=== PATIENT | female | born 1990 | race Caucasian/White ===

== ENCOUNTER 2020-11-01 21:02 | Emergency (ER) | payer OTHER, SELFPAY ==
--- NOTE | ~2020-11-01 | CT_ITS ---
EXAMINATION: CT ABDOMEN AND PELVIS WITH CONTRAST CLINICAL INFORMATION: Abdominal pain. Foreign object in rectum. COMPARISON: None TECHNIQUE: Multidetector volumetric images were obtained from the superior aspect of the liver through the pubic symphysis following administration 85 mL of Omnipaque 350 intravenous contrast. Sagittal and coronal reformatted images were obtained on the technologist's workstation. Oral contrast: No This CT examination was performed using dose optimization techniques as appropriate, variously including the following: *Automated exposure control *Adjustment of mA and/or kV according to patient size (this includes techniques or standardized protocols for targeted exams where dose is matched to indication/reason for exam; i.e. extremities or head) *Use of iterative reconstruction technique DLP: 387 mGy-cm FINDINGS: LUNG BASES: The visualized lung bases are unremarkable. LIVER, GALLBLADDER, AND BILIARY TREE: The liver is normal in size, shape, and attenuation. No focal hepatic lesion or biliary ductal dilatation is present. The gallbladder is unremarkable with no evidence of radiopaque gallstones, gallbladder wall thickening, or obvious pericholecystic inflammatory changes. PANCREAS: Unremarkable. SPLEEN: Unremarkable. ADRENAL GLANDS: Unremarkable. KIDNEYS AND URETERS: The kidneys are normal in size, shape, and attenuation. No hydronephrosis, hydroureter, or calculi seen. No perinephric stranding. BLADDER: Unremarkable. GASTROINTESTINAL TRACT: The small and large bowel are unremarkable. The appendix is unremarkable. No radiopaque foreign body in rectum. ABDOMINAL WALL: No significant hernia is appreciated. LYMPH NODES: Normal. VASCULAR: Unremarkable. PELVIC VISCERA: Uterus is retroverted. Bilateral adnexal follicles/cysts. No follow-up imaging is needed. OSSEOUS STRUCTURES: Unremarkable. CT/CT abdomen pelvis w con IMPRESSION: No acute abnormality CT scan abdomen pelvis.
[2020-11-01 21:30] VITALS: BP 159/96; PULSE 83; RESP 18; TEMP 36.6; O2SAT 98; BMI 18.3
--- NOTE | 2020-11-01 22:07 | ED.ABDPAIN ---
HPI - Abdominal Pain General Chief Complaint: Abdominal Pain Stated Complaint: foreign object in body Time Seen by Provider: 11/01/20 22:04 Source: patient Mode of arrival: ambulatory History of Present Illness HPI narrative: 30-year-old female reports that she placed crack cocaine in a bag inside of her rectum approximately 8 days ago and has had difficulty with having a bowel movement since then with progressively worsening abdominal discomfort but denies any vomiting but describes some nausea with chills and states that she is bleeding ?from below?. Patient states that she was discharged from detox 4 days ago and denies having any alcoholic drinks since that time. Related Data Previous Rx's Medication Instructions Recorded phenazopyridine [Pyridium] 100 mg PO TID PRN #6 tab 11/02/20 sulfamethoxazole-trimethoprim 1 tab PO Q12H 3 Days #6 tab 11/02/20 [Bactrim DS] Allergies Allergy/AdvReac Type Severity Reaction Status Date / Time povidone-iodine Allergy Unknown ITCHING Unverified 01/04/20 16:51 [From BETADINE] soap [From BETADINE] Allergy Unknown ITCHING Unverified 01/04/20 16:51 Review of Systems Review of Systems Pertinent positives and negatives as stated in HPI 10 point review of systems is otherwise negative. Physical Exam Vital Signs: Vital Signs: Last Vital Signs Temp 97.9 F 11/01/20 21:30 Pulse 84 11/02/20 00:14 Resp 17 11/02/20 00:14 BP 144/92 H 11/02/20 00:14 Pulse Ox 100 11/02/20 00:14 Body Mass Index 18.3 VITAL SIGNS: Reviewed. GENERAL: Well developed, well nourished, in no acute distress. HEAD: Normocephalic/atraumatic EYES: PERRLA, EOMI OROPHARYNX: no oral lesions noted, posterior pharynx clear NECK: Supple, no adenopathy LUNGS: Normal breath sounds. No adventitious sounds or accessory muscle use. SpO2<98> CARDIOVASCULAR: Regular rate and rhythm without noted murmurs ABDOMEN: Soft, diffuse abdominal tenderness, distended with bowel sounds. Voluntary guarding TREE: [Electronic Security Specialist-Wanda] No hemorrhoids, fissures, tags noted, rectal vault empty and no blood or stool noted on finger and no palpation of foreign object, good rectal tone LEFT UPPER EXTREMITY: Patient has sling and placed stating that she was evaluated at [facility] for dislocated elbow and neurovascularly intact SKIN: Inspection of the skin reveals no rashes NEUROLOGIC: Alert and oriented x 4. Strength and sensation to light touch were grossly intact x 4. Course Course Course Narrative: 30-year-old female with history and clinical presentation consistent with possible foreign body in rectum with subsequent obstruction versus less likely perforation. Review of all investigations consistent with UTI and cocaine use. No imaging findings to demonstrate intra-abdominal pathology. All results and findings were discussed with the patient at bedside, she received initial antibiotics/peridium as well as combination analgesics and was then discharged in stable condition. MDM - Abdominal Pain Lab Data Result diagrams: 11/01/20 22:24 11/01/20 22:24 Labs: Lab Results 11/01/20 11/01/20 11/01/20 Range/Units 22:24 22:24 22:24 WBC 11.1 H (4.8-10.8) X10*3/uL RBC 4.37 (4.20-5.50) X10*6/uL Hgb 9.8 L (12.0-16.0) g/dl Hct 31.5 L (37-47) % MCV 72.1 L (80-98) fL MCH 22.4 L (27.0-33.0) pg MCHC 31.1 (31.0-35.0) g/dl RDW 20.0 H (11.0-16.0) % Plt Count 395 (160-400) X10*3/uL MPV 9.1 L (9.4-12.3) fL Immature Gran % (Auto) 0.3 (0.0-0.4) % Neut % (Auto) 59.8 (45-73) % Lymph % (Auto) 28.4 (20-40) % [place] % (Auto) 9.7 (2-11) % Eos % (Auto) 1.4 (0-4) % Baso % (Auto) 0.4 (0-2) % Lymph # (Auto) 3.2 (1.2-4.9) X10*3/uL [place] # (Auto) 1.1 (0.1-1.2) X10*3/uL Eos # (Auto) 0.2 (0.0-0.4) X10*3/uL Baso # (Auto) 0.0 (0.0-0.2) X10*3/uL Abs Immat Gran (auto) 0.03 (0.00-0.03) X10*3/uL Absolute Neuts (auto) 6.6 (2.0-8.3) X10*3/uL Absolute Nucleated RBC 0.000 (0.0-0.012) X10*3/uL Nucleated RBC % (auto) 0.0 (0.0-0.2) /100WBC Sodium 143 (135-145) mmol/L Potassium 4.0 (3.3-5.1) mmol/L Chloride 111 H (96-108) mmol/L Carbon Dioxide 26 (22-29) mmol/L Anion Gap 10 L (12-20) BUN 14 (9-16) mg/dL Creatinine 0.82 (0.5-1.4) mg/dL Estim Creat Clear Calc 77.5 Estimated GFR > 60 Random Glucose 81 (60-115) mg/dL Calcium 9.1 (8.4-10.2) mg/dL Total Bilirubin 0.6 (0.0-1.0) mg/dL AST 108 H (5-31) U/L ALT 159 H (0-31) U/L Alkaline Phosphatase 167 H (39-117) U/L Total Protein 6.9 (6.5-8.0) g/dL Albumin 3.6 (3.5-5.0) g/dL Urine Color Urine Appearance Urine pH (5.0-8.0) Ur Specific [place] (1.005-1.025) Urine Protein (NEG-TRACE) MG/DL Urine Glucose (UA) (NEG) MG/DL Urine Ketones (NEG) MG/DL Urine Blood (NEG) Urine Nitrite (NEG) Ur Leukocyte Esterase (NEG) Urine RBC (0) /HPF Urine WBC (0-4) /HPF Ur Squamous Epith Cells /LPF Urine Bacteria /LPF Urine Mucus /LPF Urine Test (NEGATIVE) Urine Opiates Screen (Not Detect) Ur Barbiturates Screen (Not Detect) Ur Phencyclidine Scrn (Not Detect) Ur Amphetamines Screen (Not Detect) U Benzodiazepines Scrn (Not Detect) Urine Cocaine Screen (Not Detect) U Marijuana (THC) Screen (Not Detect) Ethyl Alcohol < 10 mg/dL 11/01/20 11/01/20 11/01/20 Range/Units 23:38 23:38 23:38 WBC (4.8-10.8) X10*3/uL RBC (4.20-5.50) X10*6/uL Hgb (12.0-16.0) g/dl Hct (37-47) % MCV (80-98) fL MCH (27.0-33.0) pg MCHC (31.0-35.0) g/dl RDW (11.0-16.0) % Plt Count (160-400) X10*3/uL MPV (9.4-12.3) fL Immature Gran % (Auto) (0.0-0.4) % Neut % (Auto) (45-73) % Lymph % (Auto) (20-40) % [place] % (Auto) (2-11) % Eos % (Auto) (0-4) % Baso % (Auto) (0-2) % Lymph # (Auto) (1.2-4.9) X10*3/uL [place] # (Auto) (0.1-1.2) X10*3/uL Eos # (Auto) (0.0-0.4) X10*3/uL Baso # (Auto) (0.0-0.2) X10*3/uL Abs Immat Gran (auto) (0.00-0.03) X10*3/uL Absolute Neuts (auto) (2.0-8.3) X10*3/uL Absolute Nucleated RBC (0.0-0.012) X10*3/uL Nucleated RBC % (auto) (0.0-0.2) /100WBC Sodium (135-145) mmol/L Potassium (3.3-5.1) mmol/L Chloride (96-108) mmol/L Carbon Dioxide (22-29) mmol/L Anion Gap (12-20) BUN (9-16) mg/dL Creatinine (0.5-1.4) mg/dL Estim Creat Clear Calc Estimated GFR Random Glucose (60-115) mg/dL Calcium (8.4-10.2) mg/dL Total Bilirubin (0.0-1.0) mg/dL AST (5-31) U/L ALT (0-31) U/L Alkaline Phosphatase (39-117) U/L Total Protein (6.5-8.0) g/dL Albumin (3.5-5.0) g/dL Urine Color YELLOW Urine Appearance HAZY Urine pH 7.0 (5.0-8.0) Ur Specific [place] 1.015 (1.005-1.025) Urine Protein NEG (NEG-TRACE) MG/DL Urine Glucose (UA) NEG (NEG) MG/DL Urine Ketones NEG (NEG) MG/DL Urine Blood NEG (NEG) Urine Nitrite NEG (NEG) Ur Leukocyte Esterase 1+ H (NEG) Urine RBC 1-4 (0) /HPF Urine WBC 10-14 H (0-4) /HPF Ur Squamous Epith Cells 2+ /LPF Urine Bacteria 1+ /LPF Urine Mucus TRACE /LPF Urine Test NEGATIVE (NEGATIVE) Urine Opiates Screen Not Detected (Not Detect) Ur Barbiturates Screen Not Detected (Not Detect) Ur Phencyclidine Scrn Not Detected (Not Detect) Ur Amphetamines Screen Not Detected (Not Detect) U Benzodiazepines Scrn POSITIVE H (Not Detect) Urine Cocaine Screen POSITIVE H (Not Detect) U Marijuana (THC) Screen Not Detected (Not Detect) Ethyl Alcohol mg/dL Discharge Plan Discharge Clinical Impression: UTI (urinary tract infection), Cocaine abuse Patient Disposition: Home, Self-Care Instructions: Urinary Tract Infection in Women (ED), Cocaine Abuse (ED) Additional Instructions: Follow-up with your primary care provider in next 2-3 days. Continue to wear the sling on your left arm as directed. Return to the ER for acute worsening of symptoms. Prescriptions: New sulfamethoxazole-trimethoprim [Bactrim DS] 800-160 mg tablet 1 tab PO Q12H 3 Days Qty: 6 RF: 0 phenazopyridine [Pyridium] 100 mg tablet 100 mg PO TID PRN (Reason: pain) Qty: 6 RF: 0 Referrals: Physician,None [Primary Care Provider] - 2 days PMF[facility] Past Medical History Source: nursing notes reviewed Medical History Anxiety Hypertension Social History Social History Alcohol intake: unknown Patient Tobacco Use Status: Tobacco use Unknown Use of substances other than those prescribed or required for medical reasons: Unknown Advance Directives: No Advance Directives Information Provided: Yes Patient : No
[2020-11-01 22:27] LABS: MANUAL DIFF FLAG NO
[2020-11-01 22:28] LABS: Basophils Percent Auto 0.4 % (0-2); Eosinophils Absolute Auto 0.2 X10*3/uL (0.0-0.4); Eosinophils Percent Auto 1.4 % (0-4); Hematocrit 31.5 % (37-47); Hemoglobin 9.8 g/dl (12.0-16.0); Imm Gran Abs Auto 0.03 X10*3/uL (0.00-0.03); Imm Gran Pct Auto 0.3 % (0.0-0.4); Lymphocytes Absolute Auto 3.2 X10*3/uL (1.2-4.9); Lymphocytes Percent Auto 28.4 % (20-40); Mean Corpuscular HGB Conc 31.1 g/dl (31.0-35.0); Mean Corpuscular Hemoglobin 22.4 pg (27.0-33.0); Mean Corpuscular Volume 72.1 fL (80-98); Mean Platelet Volume 9.1 fL (9.4-12.3); Monocytes Absolute Auto 1.1 X10*3/uL (0.1-1.2); Monocytes Percent Auto 9.7 % (2-11); Neutrophils Absolute Auto 6.6 X10*3/uL (2.0-8.3); Neutrophils Percent Auto 59.8 % (45-73); Platelet Count 395 X10*3/uL (160-400); Red Blood Count 4.37 X10*6/uL (4.20-5.50); White Blood Count 11.1 X10*3/uL (4.8-10.8)
[2020-11-01 22:44] VITALS: BP 182/100; PULSE 107; RESP 22; O2SAT 100
[2020-11-01 22:48] LABS: Ethanol < 10 mg/dL
[2020-11-01] MEDS: LORazepam 2 MG/ML VIAL 1 MG IVPUSH (22:50)
[2020-11-01 22:59] LABS: Alanine Aminotransferase 159 U/L (0-31); Albumin Level 3.6 g/dL (3.5-5.0); Alkaline Phosphatase 167 U/L (39-117); Anion Gap 10 (12-20); Aspartate Amino Transferase 108 U/L (5-31); Bilirubin Total 0.6 mg/dL (0.0-1.0); Blood Urea Nitrogen 14 mg/dL (9-16); Calcium 9.1 mg/dL (8.4-10.2); Carbon Dioxide 26 mmol/L (22-29); Chloride 111 mmol/L (96-108); Creatinine Clr Calc Pharmacy 77.5; Estimated Glomerular Filt Rate > 60; Glucose Random 81 mg/dL (60-115); Sodium 143 mmol/L (135-145); Total Protein 6.9 g/dL (6.5-8.0)
[2020-11-01] MEDS: iohexoL 350 MG/ML 100 ML INFUS..BTL 85 ML IV (23:05)
[2020-11-01 23:28] VITALS: BP 164/112; PULSE 79; RESP 16; O2SAT 100
[2020-11-01 23:46] LABS: Glucose Urine UA NEG (NEG); Leukocyte Esterase Urine 1+ (NEG); Nitrite Urine NEG (NEG); Specific Gravity - Urine 1.015 (1.005-1.025); UACC Culture Trigger YES; Urine Blood NEG (NEG); Urine Ketones NEG (NEG); Urine Protein NEG (NEG-TRACE)
[2020-11-01 23:47] LABS: Appearance Urine HAZY; Color Urine YELLOW; UPreg QC Valid YES; Urine Pregnancy NEGATIVE (NEGATIVE)
--- NOTE | 2020-11-01 23:50 | PC.NURSE ---
Dr Herron made aware of pt's BP
[2020-11-01 23:54] LABS: Bacteria Urine 1+ /LPF; Mucus Urine TRACE /LPF; Squamous Epithelial Cell Urine 2+ /LPF
[2020-11-02 00:13] LABS: Amphetamine Screen Urine Not Detected (Not Detect); Barbiturates, Urine Not Detected (Not Detect); Benzodiazepines Screen Urine POSITIVE (Not Detect); Cannabinoid Screen Urine Not Detected (Not Detect); Cocaine Screen Urine POSITIVE (Not Detect); Opiate Screen Urine Not Detected (Not Detect); Phencyclidine Screen Urine Not Detected (Not Detect)
[2020-11-02 00:14] VITALS: BP 144/92; PULSE 84; RESP 17; O2SAT 100
[2020-11-02] MEDS: Phenazopyridine HCL 200 MG TABLET PO (01:00)
[2020-11-02] MEDS: Acetaminophen 325 MG TABLET 975 MG PO (01:00)
[2020-11-02] MEDS: Ketorolac Tromethamine 15 MG/ML VIAL IVPUSH (01:00)
== END 2020-11-02 01:21 | disposition home or self-care (01) ==
PROVIDERS: Emergency Provider Student in an Organized Health Care Education/Training Program
DX: Z03.823 Encounter for observation for suspected inserted (injected) foreign body ruled out (principal); N39.0 Urinary tract infection, site not specified; F14.10 Cocaine abuse, uncomplicated
CPT/HCPCS: 36415; 74177; 80053; 80307; 81001; 81003; 81025; 82077; 85025; 87086; 96374; 96375; 99284; 99285; J1885; J2060; Q9967

== ENCOUNTER 2021-03-30 13:23 | Emergency (ER) | payer OTHER, SELFPAY ==
--- NOTE | 2021-03-30 13:53 | ED.GENADULT ---
HPI - General Adult General Chief complaint: General Medical Stated complaint: feet swollen numb fever Time Seen by Provider: 03/30/21 13:52 Source: patient Mode of arrival: ambulatory Limitations: no limitations History of Present Illness HPI narrative: 30-year-old female past medical history significant for cocaine abuse, presents to the emergency department with complaints of bilateral ankle swelling and pain, bilateral knee pain, fevers, chills, and blurred vision x2 weeks progressively worsening. Patient tells me that it started off with pain and swelling to bilateral ankles, and within the past week it has moved up to her knees and hips. She tells me she has been having fevers that are subjective, she has never taken her temperature at home. Patient denies chest pain, shortness of breath, vomiting, nausea, abdominal pain, headache, dizziness, weakness. Onset (ago): week(s) (2) Location: left, right and lower extremity Radiation: non-radiation Severity: severe Severity scale (1-10): 10 Quality: aching and constant Pain Consistency: constant Relieving factors: none Exacerbating factors: none Associated symptoms: fever/chills and other (blurred vision) Treatments prior to arrival: none Related Data Previous Rx's Medication Instructions Recorded phenazopyridine 100 mg tablet 100 mg PO TID PRN #6 tab 11/02/20 (Pyridium) sulfamethoxazole 800 1 tab PO Q12H 3 Days #6 tab 11/02/20 mg-trimethoprim 160 mg tablet (Bactrim DS) Allergies Allergy/AdvReac Type Severity Reaction Status Date / Time povidone-iodine Allergy Unknown ITCHING Unverified 01/04/20 16:51 [From BETADINE] soap [From BETADINE] Allergy Unknown ITCHING Unverified 01/04/20 16:51 Review of Systems Review of Systems: Constitutional : No Weight loss, + Fever, + Chills, No Fatigue, No Malaise ENT/Mouth : No sore throat, No Rhinorrhea Eyes: No Eye Pain, No Swelling, No Redness Cardiovascular : No Chest Pain, No SOB, No Dyspnea on Exertion, No Orthopnea, No Edema, No Palpitations Respiratory : No Cough, No Sputum, No Wheezing Gastrointestinal : No Nausea, No Vomiting, No Diarrhea, No Constipation, No abdominal Pain, No Hematochezia, No Melena Genitourinary : No Dysuria, No Urinary Frequency, No Hematuria, Musculoskeletal : + joint pain, No Myalgias, + Joint Swelling Skin : No Skin Lesions, No rash Neuro : No Weakness, No Numbness, No Dizziness, No Headache All other systems reviewed and are negative Yes all other systems are reviewed and are negative [facility] Past Medical History Attestation statement: The following information was validated with the patient. Source: old records reviewed and nursing notes reviewed Medical History Anxiety Hypertension Social History Social History Alcohol intake: unknown Patient Tobacco Use Status: Tobacco use Unknown Advance Directives: No Advance Directives Information Provided: No Patient : No Physical Exam Vital Signs: Vital Signs: Last Vital Signs Temp 98.5 F 03/30/21 13:54 Pulse 92 03/30/21 13:54 Resp 18 03/30/21 13:54 BP 178/111 H 03/30/21 13:54 Pulse Ox 99 03/30/21 13:54 BMI result Body Mass Index 21.6 VSS Appearance: Alert.? Oriented X3.? No acute distress.? Head: Normocephalic, atraumatic, no step-offs or deformities Eyes: Pupils equal, round and reactive to light.? ENT: Pharynx normal.? Neck: Normal inspection.? Neck supple.? CVS: Normal heart rate and rhythm.? Pulses normal.? Respiratory: No respiratory distress.? Breath sounds normal.? Abdomen: Soft and nontender.? Skin: Skin warm and dry.? Normal skin color.? Normal skin turgor.? Extremities: No lower extremity edema.? No calf ttp. 5/5 strength to bilateral upper and lower extremities + pain with ROM of ankles, knee and hip + swelling to left knee, right knee normal. + cracked heels, appears to be chronic in nature. Back: No midline tenderness, no C-spine tenderness, full range of motion, no CVA tenderness bilaterally Neuro: Oriented X 3.? No motor deficit.? No sensory deficit. Course Reevaluation(s) Reevaluation #1: Was reported to me that patient did not want to wait, patient eloped. Time: 14:38 Medical Decision Making [facility] Narrative Medical decision making narrative: [id number] 30-year-old female past medical history significant for cocaine abuse presents to the emergency department with complaints of migratory arthritis, blurred vision, subjective fevers and chills x2 weeks progressively worsening. Patient states that the joint pain started at the ankles and has moved up to her hips a course of 2 weeks. She tells me that she is sexually active, does not use protection. She tells me she has no concerns for STDs. Denies sick contacts. Denies chest pain, shortness of breath, abdominal pain, no vomiting, nausea, weakness. Upon physical examination patient reports pain with movement of bilateral ankles, knees and hips. There is slight swelling noted to the left knee however no overlying skin changes, no palpable effusions, step-offs or deformities. Lungs are clear. S1-S2 appreciated free of murmurs. Abdomen is soft nontender nondistended. Patient refusing a pelvic exam at this time. Vital signs are stable, however patient appears to be hypertensive, likely secondary to anxiety. Plan at this time is to obtain Lyme, chlamydia, gonorrhea, tick-borne panel, UA, point of care, x-ray of the left knee. 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 Tick borne illnesses will also be ruled out. I will also rule out effusion to the left knee since there is slight edema to the left knee. I will prophylactically treat patient for gonorrhea and chlamydia. Medical Records Medical records reviewed: Yes I reviewed the patient's medical records. Lab Data Lab results reviewed: Yes I reviewed the patient's lab results. Critical Care Time Critical Care Time Critical Care Time: No Discharge Plan Discharge Clinical Impression: Knee pain, Joint pain Patient Disposition: Elopement Prescriptions: No Action sulfamethoxazole-trimethoprim [Bactrim DS] 800-160 mg tablet 1 tab PO Q12H 3 Days Qty: 6 RF: 0 phenazopyridine [Pyridium] 100 mg tablet 100 mg PO TID PRN (Reason: pain) Qty: 6 RF: 0
[2021-03-30 13:54] VITALS: BP 178/111; PULSE 92; RESP 18; TEMP 36.9; O2SAT 99; BMI 21.6
[2021-03-30 14:46] LABS: Influenza A PCR NEGATIVE (Negative); Influenza B PCR NEGATIVE (Negative); Resp Syncy Virus RNA Qual PCR NEGATIVE (Negative); SARS COV2 PCR INHOUSE NEGATIVE (Negative)
== END 2021-03-30 14:48 | disposition left against medical advice (07) ==
PROVIDERS: Physician Assistant; Emergency Provider Emergency Medicine; PCP Internal Medicine
DX: M25.562 Pain in left knee (principal); M25.561 Pain in right knee; M25.462 Effusion, left knee; M25.572 Pain in left ankle and joints of left foot; M25.571 Pain in right ankle and joints of right foot; F14.10 Cocaine abuse, uncomplicated; I10 Essential (primary) hypertension; F41.9 Anxiety disorder, unspecified
CPT/HCPCS: 0241U; 36415; 96372; 99283; 99284

== ENCOUNTER 2021-06-16 04:12 | Emergency (ER) | payer OTHER, SELFPAY ==
[2021-06-16] VITALS (11 sets, daily range): BP systolic 116–160; BP diastolic 60–103; PULSE 96–127; RESP 16–24; TEMP 36.7–37; O2SAT 97–99; BMI 20.6
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
[2021-06-16] MEDS: Haloperidol Lactate 5 MG/ML VIAL IM (04:29)
[2021-06-16] MEDS: diphenhydrAMINE HCL 50 MG/ML VIAL IM (04:29)
[2021-06-16] MEDS: LORazepam 2 MG/ML VIAL IM (04:29)
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
--- NOTE | 2021-06-16 04:49 | ECG_ITS ---
Test Reason : overdose Blood Pressure : / mmHG Vent. Rate : 100 BPM Atrial Rate : 100 BPM P-R Int : 130 ms QRS Dur : 086 ms QT Int : 362 ms P-R-T Axes : 069 073 055 degrees QTc Int : 466 ms Normal sinus rhythm Normal ECG No previous ECGs available Referred By: Alisha Springer Electronically Signed By:Chandrakant Fink
[2021-06-16 05:10] LABS: Basophils Absolute Auto 0.1 X10*3/uL (0.0-0.2); Basophils Percent Auto 0.4 % (0-2); Eosinophils Percent Auto 0.1 % (0-4); Hematocrit 37.9 % (37.0-47.0); Hemoglobin 12.4 g/dl (12.0-16.0); Imm Gran Abs Auto 0.06 X10*3/uL (0.00-0.03); Imm Gran Pct Auto 0.4 % (0.0-0.4); Lymphocytes Absolute Auto 2.5 X10*3/uL (1.2-4.9); Lymphocytes Percent Auto 15.6 % (20-40); MANUAL DIFF FLAG NO; Mean Corpuscular HGB Conc 32.7 g/dl (31.0-35.0); Mean Corpuscular Hemoglobin 26.3 pg (27.0-33.0); Mean Corpuscular Volume 80.3 fL (80.0-98.0); Mean Platelet Volume 9.2 fL (9.4-12.3); Neutrophils Absolute Auto 12.3 x10*3/uL (2.0-8.3); Neutrophils Percent Auto 77.5 % (45-73); Platelet Count 322 X10*3/uL (160-400); Red Blood Count 4.72 X10*6/uL (4.20-5.50); Red Cell Distribution Width 17.1 % (11.0-16.0); White Blood Count 15.8 X10*3/uL (4.8-10.8)
[2021-06-16 05:21] LABS: INTERNATIONAL NORM RATIO 1.1 (0.9-1.1); Prothrombin Time 12.5 SEC (9.9-13.0)
[2021-06-16 05:24] LABS: Ethanol 79 mg/dL; Partial Thromboplastin Time 30.1 SEC (24.1-38.0)
[2021-06-16 05:30] LABS: Acetaminophen LAB < 1 mcg/mL (<30); Alanine Aminotransferase 40 U/L (0-31); Albumin Level 4.3 g/dL (3.5-5.0); Alkaline Phosphatase 112 U/L (39-117); Anion Gap 14 (12-20); Aspartate Amino Transferase 51 U/L (5-31); Bilirubin Direct 0.4 mg/dL (0.0-0.5); Bilirubin Total 0.7 mg/dL (0.0-1.0); Blood Urea Nitrogen 13 mg/dL (9-16); Calcium 9.6 mg/dL (8.4-10.2); Carbon Dioxide 22 mmol/L (22-29); Chloride 105 mmol/L (96-108); Creatinine Clr Calc Pharmacy 106.9; Estimated Glomerular Filt Rate > 60; Glucose Random 82 mg/dL (60-115); Potassium 3.8 mmol/L (3.3-5.1); Sodium 137 mmol/L (135-145); Total Protein 7.6 g/dL (6.5-8.0)
[2021-06-16 05:31] LABS: Salicylate < 5.0 mg/dL (15-30)
--- NOTE | 2021-06-16 08:08 | PC.NURSE ---
princess stoddard sent
[2021-06-16 18:13] LABS: Appearance Urine CLEAR; Color Urine DK YELLOW; Glucose Urine UA NEG (NEG); Leukocyte Esterase Urine TRACE (NEG); Nitrite Urine NEG (NEG); Specific Gravity - Urine >= 1.030 (1.005-1.025); UACC Culture Trigger YES; Urine Blood NEG (NEG); Urine Ketones 5 MG/DL (NEG); Urine Protein 1+ MG/DL (NEG-TRACE)
[2021-06-16 18:15] LABS: Amphetamine Screen Urine Not Detected (Not Detect); Barbiturates, Urine Not Detected (Not Detect); Benzodiazepines Screen Urine Not Detected (Not Detect); Cannabinoid Screen Urine POSITIVE (Not Detect); Cocaine Screen Urine POSITIVE (Not Detect); Fentanyl, urine POSITIVE (Not Detect); Opiate Screen Urine Not Detected (Not Detect); Phencyclidine Screen Urine Not Detected (Not Detect)
[2021-06-16 18:34] LABS: Bacteria Urine TRACE /LPF; Mucus Urine 4+ /LPF; Squamous Epithelial Cell Urine 3+ /LPF
[2021-06-16 18:57] LABS: COVID-19 Test Negative (Negative); IDNOW Serial# 55D5AD1C
[2021-06-16] MEDS: LORazepam 1 MG TABLET 2 MG PO (20:37)
--- NOTE | 2021-06-16 21:14 | MHC.RECOVSUP ---
Addendum entered by Edmond Amanda 06/17/21 14:00: There was no bed availability, patient was given community resources.Patient was referred to the [facility]. Original Note: ? Reason for consult:Recovery Support o Current location:[facility] o Identified substance use concern: ETOH, Crack cocaine - Seeking ATS (detox) - Support ? Intervention: o ATS bed search started/completed/in process o Community resources provided o Harm reduction discussion ? Plan: o Follow up tomorrow o Patient awaiting crisis evaluation o Patient to follow up with [facility] after discharge ? Additional information:Patient seeking detox (EATS) bed, Care team doing an evaluation, patient to stay until we do a bed search in the morning.
[2021-06-17 06:14] VITALS: BP 141/84; PULSE 77; RESP 16; TEMP 36.9; O2SAT 100
--- NOTE | 2021-06-17 06:39 | PC.NURSE ---
Patient slept through the night, no distress observed/reported, asymptomatic of withdrawal, patient per care team and [employer] EATS bed search, VSS, will continue to monitor.
--- NOTE | 2021-06-17 07:11 | PC.NURSE ---
patient appears to remain asleep at present respirations are even and unlabored patient appears in no distress
--- NOTE | 2021-06-17 14:05 | MHC.RECOVRN ---
Loan Operations Manager has conducted bedsearch and sent updated information to [facility] due to their bed availability. Awaiting call back.
[2021-06-17] MEDS: LORazepam 1 MG TABLET 2 MG PO (16:18)
[2021-06-17] MEDS: Acetaminophen 325 MG TABLET 650 MG PO (16:58)
== END 2021-06-17 21:36 | disposition home or self-care (01) ==
PROVIDERS: Emergency Provider Emergency Medicine; PCP Internal Medicine
DX: F10.120 Alcohol abuse with intoxication, uncomplicated (principal); Y90.3 Blood alcohol level of 60-79 mg/100 ml; S51.812A Laceration without foreign body of left forearm, initial encounter; X78.0XXA Intentional self-harm by sharp glass, initial encounter; F14.10 Cocaine abuse, uncomplicated; F12.90 Cannabis use, unspecified, uncomplicated; F41.9 Anxiety disorder, unspecified; R45.6 Violent behavior; R45.1 Restlessness and agitation; R45.850 Homicidal ideations; Y93.89 Activity, other specified; Y92.019 Unspecified place in single-family (private) house as the place of occurrence of the external cause; Y99.9 Unspecified external cause status; Z20.822 Contact with and (suspected) exposure to COVID-19; Z72.89 Other problems related to lifestyle; Z63.0 Problems in relationship with spouse or partner
CPT/HCPCS: 12001; 36415; 70450; 80048; 80076; 80143; 80179; 80307; 81001; 82077; 83605; 83735; 85025; 85610; 85730; 87086; 87147; 87635; 93005; 96372; 99285; J1200; J2060

== ENCOUNTER 2021-06-27 22:26 | Inpatient (IN) | payer OTHER, SELFPAY ==
--- NOTE | ~2021-06-27 | CT_ITS ---
EXAMINATION: CT ABDOMEN AND PELVIS WITH CONTRAST CLINICAL INFORMATION: Right lower quadrant pain. 8 out of 10. Rule out appendicitis. COMPARISON: None TECHNIQUE: Multidetector volumetric images were obtained from the superior aspect of the liver through the pubic symphysis following administration 85 mL of Omnipaque 350 intravenous contrast. Sagittal and coronal reformatted images were obtained on the technologist's workstation. Oral contrast: No This CT examination was performed using dose optimization techniques as appropriate, variously including the following: *Automated exposure control *Adjustment of mA and/or kV according to patient size (this includes techniques or standardized protocols for targeted exams where dose is matched to indication/reason for exam; i.e. extremities or head) *Use of iterative reconstruction technique FINDINGS: LUNG BASES: The visualized lung bases are unremarkable. LIVER, GALLBLADDER, AND BILIARY TREE: The liver is normal in size, shape, and attenuation. No focal hepatic lesion or biliary ductal dilatation is present. The gallbladder is unremarkable with no evidence of radiopaque gallstones, gallbladder wall thickening, or obvious pericholecystic inflammatory changes. PANCREAS: Unremarkable. SPLEEN: Unremarkable. ADRENAL GLANDS: Unremarkable. KIDNEYS AND URETERS: The kidneys are normal in size, shape, and attenuation. No hydronephrosis, hydroureter, or calculi seen. No perinephric stranding. BLADDER: Unremarkable. GASTROINTESTINAL TRACT: Stomach and small bowel are nondilated. Moderate volume stool throughout the colon. No evidence of colitis or diverticulitis. Constipation could've this appearance. The appendix is well-seen and normal. ABDOMINAL WALL: No significant hernia is appreciated. LYMPH NODES: Normal. VASCULAR: Unremarkable. PELVIC VISCERA: Normal appearance of the uterus and ovaries for age. OSSEOUS STRUCTURES: Degenerative disc disease at L5-S1 with loss of disc height and vacuum disc phenomenon. 3 mm retrolisthesis with a broad-based disc bulge. CT/CT abdomen pelvis w con IMPRESSION: Normal appendix. Moderate volume stool throughout the colon suggest constipation. No other acute CT findings to explain right lower quadrant pain. Fleischner guidelines were followed.
[2021-06-27 22:50] VITALS: BP 148/103; PULSE 84; RESP 17; TEMP 36.4; O2SAT 100
[2021-06-27] MEDS: hydrOXYzine HCL 25 MG TABLET PO (23:09)
[2021-06-27] MEDS: cloNIDine HCL 0.1 MG TABLET PO (23:09)
[2021-06-27] MEDS: traZODone HCL 50 MG TABLET PO (23:09)
[2021-06-27 23:24] VITALS: BMI 18.7
[2021-06-28 00:06] VITALS: PULSE 79
--- NOTE | 2021-06-28 00:24 | PC.ADMIT ---
Pt is 30y/o female admitted for in patient level of care for concerns of intentional OD. Pt is reported to have ingested 600mg of her mothers seroquel as well as 5omg of Ambien and an unknown amount of Fentanyl with a plan to end her life. Pt is alert and sleepy. VSS. Covid negative and Tox screen is positive for Benzos, Cocain, THC, Fentanyl. Pt appears disheveled, teary and reports discomfort. Speech is clear but difficult to engage. Pt denies SI and HI. Pt denies all psych symptoms and states she wants to get out of here and go get high. Pt lives with her mother who is supportive and involved in her life. Pt reports redrawal symptoms, cows assessment completed. Clonidine and trazadone given as ordered. Pt on 15mins check will continue to monitor. Admission orders obtained.
[2021-06-28 06:00] VITALS: BP 135/72; PULSE 65; RESP 16; TEMP 36.3; O2SAT 98
--- NOTE | 2021-06-28 07:20 | PHA.MEDREC ---
Pharmacy Consult ? Medication Reconciliation Nursing has completed the medication reconciliation and Pharmacy has reviewed.
[2021-06-28 08:03] LABS: Alanine Aminotransferase 37 U/L (0-31); Albumin Level 3.5 g/dL (3.5-5.0); Alkaline Phosphatase 77 U/L (39-117); Anion Gap 12 (12-20); Aspartate Amino Transferase 46 U/L (5-31); Bilirubin Total 0.3 mg/dL (0.0-1.0); Blood Urea Nitrogen 13 mg/dL (9-16); Calcium 9.1 mg/dL (8.4-10.2); Carbon Dioxide 23 mmol/L (22-29); Chloride 105 mmol/L (96-108); Creatinine Clr Calc Pharmacy 110.3; Estimated Glomerular Filt Rate > 60; Glucose Fasting 90 mg/dL (60-99); Potassium 4.8 mmol/L (3.3-5.1); Sodium 135 mmol/L (135-145); Total Protein 6.5 g/dL (6.5-8.0)
[2021-06-28 08:24] LABS: Free T4 (Free Thyroxine) 0.84 ng/dL (0.71-1.85); Thyroid Stimulating Hormone 0.34 uIU/mL (0.32-4.0)
[2021-06-28 09:16] LABS: Folate 10.8 ng/mL (> or = 4.0); Vitamin B12 477 pg/mL (200-900)
[2021-06-28] MEDS: Acetaminophen 325 MG TABLET 650 MG PO ×2 (09:28→20:10)
[2021-06-28] MEDS: cloNIDine HCL 0.1 MG TABLET PO ×2 (09:28→19:13)
--- NOTE | 2021-06-28 14:10 | HO.HSGERICON ---
History of Present Illness Data of Consult Service Date: 06/28/21 Requesting physician: Zia Walker Primary Care Provider: Unknown Physician HPI Routine medical consult for new admission. No acute issues Review of Systems Review of Systems: Denies chest pain Denies shortness of breath Denies nausea vomiting diarrhea PMFSH Medical History Alcohol abuse Anxiety Cocaine abuse Hypertension Social History Household Members: Family Household Members Other:: Pt lives with her mum Housing: Apartment Do you presently have visiting nurse or other home services: Yes Alcohol intake: unknown Patient Tobacco Use Status: Tobacco use Unknown Tobacco use type: Cigarette Cigarette Packs Per Day: 1 Cigarettes Per Day: 20.0 Years Smoked: 15 Smoked in Last 30 Days: No e-Cigarette/Vaping Use: Currently Using Frequency of e-Cigarette/Vaping Use: daily Patient Interested in Nicotine Replacement: Yes Patient Given Instructions on How to Stop Smoking: Yes Date Education Initiated: 06/27/21 Second Hand Smoke Exposure: No Use of substances other than those prescribed or required for medical reasons: Yes Substance Use Type: Crack/Cocaine, Heroin, Marijuana and Opiates Substance Use Frequency: Daily Last Used Substance: Days (ago) Last Used Substance Other:: Pt states i8 want to out and get high Currently Displaying Signs/Symptoms of Drug Intoxication Withdrawal: No Any prior treatment program specific to substance use: Yes Advance Directives: No Advance Directives Information Provided: No Advance Directives on File: No Do you have thoughts of harming others: None Do you have a plan to hurt others: No Plan Recently lost weight without trying: No Eating poorly because of decreased appetite: No Nutrition Risks: No Nutritional Risk Patient : No : No Poor oral hygiene: No Meds Allergies Allergy/AdvReac Type Severity Reaction Status Date / Time povidone-iodine Allergy Unknown ITCHING Unverified 01/04/20 16:51 [From BETADINE] soap [From BETADINE] Allergy Unknown ITCHING Unverified 01/04/20 16:51 Active Medications: Current Medications Acetaminophen (Acetaminophen 325 Mg Tablet) 650 mg PO Q6H PRN PRN Reason: Headache/Pain Mild Scale (1-3) Last Admin: 06/28/21 09:28 Dose: 650 mg Documented by: Al Hydroxide/Mg Hydroxide (Magnesium Hydrox/Alum Hydrox 30 Ml Oral.Susp) 30 ml PO Q6H PRN PRN Reason: Heartburn/Nausea Clonidine HCl (Clonidine Hcl 0.1 Mg Tablet) 0.1 mg PO Q4H PRN; Protocol PRN Reason: hyperarousal Last Admin: 06/28/21 09:28 Dose: 0.1 mg Documented by: Hydroxyzine HCl (Hydroxyzine Hcl 25 Mg Tablet) 25 mg PO Q6H PRN PRN Reason: Anxiety Last Admin: 06/27/21 23:09 Dose: 25 mg Documented by: Loperamide HCl (Loperamide Hcl 2 Mg Capsule) 2 mg PO Q6H PRN PRN Reason: diarrhea Lorazepam (Lorazepam 1 Mg Tablet) 1 mg PO Q6H PRN PRN Reason: anxiety, agitation, withdrawal Magnesium Hydroxide (Milk Of Magnesia 30 Ml Oral.Susp) 30 ml PO DAILY PRN PRN Reason: Constipation Ondansetron HCl (Ondansetron Odt 8 Mg Tab.Rapdis) 8 mg TRANSLINGU Q8H PRN PRN Reason: nausea Trazodone HCl (Trazodone Hcl 50 Mg Tablet) 50 mg PO BEDTIME PRN PRN Reason: Insomnia Last Admin: 06/27/21 23:09 Dose: 50 mg Documented by: Results Labs CBC and Chem 7: 06/28/21 07:21 Labs: Laboratory Results - last 24 hr 06/28/21 06/28/21 07:21 07:21 Anion Gap 12 Estim Creat Clear Calc 110.3 Estimated GFR > 60 Fasting Glucose 90 Calcium 9.1 Magnesium 2.0 Total Bilirubin 0.3 AST 46 H ALT 37 H Alkaline Phosphatase 77 D Total Protein 6.5 Albumin 3.5 Vitamin B12 477 Folate 10.8 TSH 0.34 Free T4 0.84 Assessment and Plan (1) Routine medical exam: Status: Acute Plan No acute medical issues at this time. Please call if need arises Physical Exam Vital Signs: Last Vital Signs Temp 97.4 F 06/28/21 06:00 Pulse 65 06/28/21 06:00 Resp 16 06/28/21 06:00 BP 135/72 06/28/21 06:00 Pulse Ox 98 06/28/21 06:00 BMI result Body Mass Index 18.7 Const Other: Somnolent but arousable; reluctant to engage Resp Other: Clear to auscultation bilaterally no rales rhonchi wheezes Cardio Other: No S4; positive S1-S2; no S3 murmurs or gallops GI Other: Soft nontender nondistended normoactive bowel sounds Neuro Other: Cranial nerves 2-12 grossly intact as tested. Motor is 5/5 all extremities sensation is intact cognition appears appropriate Cranial nerves: Yes CN's II-XII intact bilaterally Extrem Other: No edema
[2021-06-28] MEDS: Gabapentin 300 MG CAPSULE PO ×2 (14:46→20:10)
[2021-06-28] MEDS: Thiamine HCL 100 MG TABLET PO (14:46)
[2021-06-28] MEDS: LORazepam 1 MG TABLET PO ×4 (14:48→20:12)
[2021-06-28 18:00] VITALS: BP 119/69; PULSE 78; RESP 16; TEMP 36.7; O2SAT 78
--- NOTE | 2021-06-28 22:29 | HO.PSYADMNOT ---
HPI Date of Service: 06/28/21 Chief Complaint: anxiety disorder, Cannabis use disorder Sources of Information: patient interviewed, chart reviewed and crisis/core team assessment reviewed HPI Subjective Notes: Salas Warning Narrative: Pt is a 53 yo female with hx of PTSD, alcohol, cocaine abuse/dependence, currently in alcohol withdrawal who presents for depression, SI s/p overdose. 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 Pt tearful, saying she is very uncomfortable due to w/drawals. She says she wants to get back on medication and that she was on Seroquel for insominia. Pt became disorganized, moaning, grabbing her body, legs, rolling around on the bed, hard to engage, but saying yes that this is due to w/drawal; did not answer questions about AVH. Gave ativan 2mg once time dose + gapabentin and pt soon able to rest calmly. Past Psychiatric History: deferred for now Medical Evaluation Reviewed: Hospitalist Rehan Pending [facility] Medical History (Updated 06/28/21 @ 22:40 by Zia Walker MD) Alcohol abuse Alcohol dependence Alcohol withdrawal Anxiety Cocaine abuse Cocaine abuse Depression Hypertension Family History: deferred Social History: deferred Substance History: alcohol/cocaine abuse/dependence; says no intentional fentanyl use Trauma History: by hx; not discussed Diagnostics Vital Signs (24Hr): Vital Signs - 24 hr 06/27/21 22:50 06/28/21 06:00 Temperature 97.6 F 97.4 F Pulse Rate 84 65 Respiratory Rate 17 16 Blood Pressure 148/103 H 135/72 Pulse Oximetry 100 98 BMI result Body Mass Index 18.7 Labs Results: 06/28/21 07:21 Labs: Laboratory Results - last 48 hr 06/28/21 06/28/21 07:21 07:21 Sodium 135 Potassium 4.8 D Chloride 105 Carbon Dioxide 23 Anion Gap 12 BUN 13 Creatinine 0.70 Estim Creat Clear Calc 110.3 Estimated GFR > 60 Fasting Glucose 90 Calcium 9.1 Magnesium 2.0 Total Bilirubin 0.3 AST 46 H ALT 37 H Alkaline Phosphatase 77 D Total Protein 6.5 Albumin 3.5 Vitamin B12 477 Folate 10.8 TSH 0.34 Free T4 0.84 Meds/Allergies Meds Home Medications Acetaminophen (Acetaminophen 325 Mg Tablet) 650 mg PO Q6H PRN PRN Reason: Headache/Pain Mild Scale (1-3) Last Admin: 06/28/21 20:10 Dose: 650 mg Documented by: Al Hydroxide/Mg Hydroxide (Magnesium Hydrox/Alum Hydrox 30 Ml Oral.Susp) 30 ml PO Q6H PRN PRN Reason: Heartburn/Nausea Clonidine HCl (Clonidine Hcl 0.1 Mg Tablet) 0.1 mg PO Q4H PRN; Protocol PRN Reason: hyperarousal Last Admin: 06/28/21 19:13 Dose: 0.1 mg Documented by: Folic Acid (Folic Acid 1 Mg Tablet) 1 mg PO DAILY [facility] Stop: 07/02/21 08:59 Gabapentin (Gabapentin 300 Mg Capsule) 300 mg PO TID [facility] Last Admin: 06/28/21 20:10 Dose: 300 mg Documented by: Hydroxyzine HCl (Hydroxyzine Hcl 25 Mg Tablet) 25 mg PO Q6H PRN PRN Reason: Anxiety Last Admin: 06/27/21 23:09 Dose: 25 mg Documented by: Loperamide HCl (Loperamide Hcl 2 Mg Capsule) 2 mg PO Q6H PRN PRN Reason: diarrhea Lorazepam (Lorazepam 1 Mg Tablet) 1 mg PO Q6H PRN PRN Reason: anxiety, agitation, withdrawal Last Admin: 06/28/21 19:13 Dose: 1 mg Documented by: Lorazepam (Lorazepam 1 Mg Tablet) 1 mg PO TID [facility] Last Admin: 06/28/21 20:12 Dose: 1 mg Documented by: Lorazepam (Lorazepam 1 Mg Tablet) 1 mg PO Q2H PRN PRN Reason: mild to mod Alcohol Withdrawa Lorazepam (Lorazepam 1 Mg Tablet) 2 mg PO Q2H PRN PRN Reason: mod to severe etoh w/drawal Magnesium Hydroxide (Milk Of Magnesia 30 Ml Oral.Susp) 30 ml PO DAILY PRN PRN Reason: Constipation Multivitamins/Vitamin C (Multivitamin Tablet) 1 tab PO DAILY [facility] Stop: 07/02/21 08:59 Ondansetron HCl (Ondansetron Odt 8 Mg Tab.Rapdis) 8 mg TRANSLINGU Q8H PRN PRN Reason: nausea Thiamine HCl (Thiamine Hcl 100 Mg Tablet) 100 mg PO DAILY [facility] Stop: 07/01/21 14:34 Last Admin: 06/28/21 14:46 Dose: 100 mg Documented by: Trazodone HCl (Trazodone Hcl 50 Mg Tablet) 50 mg PO BEDTIME PRN PRN Reason: Insomnia Last Admin: 06/27/21 23:09 Dose: 50 mg Documented by: Allergies Allergies Allergy/AdvReac Type Severity Reaction Status Date / Time povidone-iodine Allergy Unknown ITCHING Unverified 01/04/20 16:51 [From BETADINE] soap [From BETADINE] Allergy Unknown ITCHING Unverified 01/04/20 16:51 Mental Status Exam Mental Status Exam Narrative: Pt is alert and oriented; behavior is lying in bed, sheet over face, in active etoh withdrawal; , friendly and calm; dressed in casual attire, unkempt; mood is described as depressed and affect congruent; minimal contact appropriate; Speech is normal rate, volume and prosody and not pressured; psychomotor agitation present; thought process is goal directed; Thought content is on withdawal pain; + SI; no HI. There is no evidence of perceptual disturbance. Patients insight and judgment are impaired. Assessment & Plan Assessment & Plan (1) Depression: Status: Acute Code(s): F32.A - Depression, unspecified (2) Alcohol dependence: Status: Acute Code(s): F10.20 - Alcohol dependence, uncomplicated (3) Cocaine abuse: Status: Acute Code(s): F14.10 - Cocaine abuse, uncomplicated (4) Alcohol withdrawal delirium: Status: Acute Code(s): F10.231 - Alcohol dependence with withdrawal delirium Plan Pt is a 53 yo female with hx of PTSD, alcohol, cocaine abuse/dependence, currently in alcohol withdrawal who presents for depression, SI s/p overdose. -limited historian, likely due to discomfort from withdrawal symptoms -some beginning signs of alcohol delirum which resolved with ativan 2mg and gabapentin 300mg -will revisit HPI and hx as pt able to tolerate interview plan: cv q15mn CIWA gave ativan 2mg one time dose ativan/gabapentin taper Ativan prn for breakthrough symptoms folic acid, thiamine Patient educated on: diagnosis and substance abuse Informed Consent: understands Reason for continued inpatient stay Substantial Risk for: harm to self and rapid decompensation
[2021-06-29 08:32] VITALS: BP 130/65; PULSE 72; TEMP 36.6; O2SAT 97
[2021-06-29] MEDS: LORazepam 1 MG TABLET PO ×3 (08:45→19:24)
[2021-06-29] MEDS: Folic Acid 1 MG TABLET PO (08:45)
[2021-06-29] MEDS: Thiamine HCL 100 MG TABLET PO (08:45)
[2021-06-29] MEDS: Gabapentin 300 MG CAPSULE PO ×3 (08:45→19:24)
[2021-06-29] MEDS: Multivitamin TABLET 1 TAB PO (08:45)
[2021-06-29] MEDS: Acetaminophen 325 MG TABLET 650 MG PO (12:56)
[2021-06-29] MEDS: Loperamide HCl 2 MG CAPSULE PO ×2 (14:45→16:51)
[2021-06-29] MEDS: hydrOXYzine HCL 25 MG TABLET PO (14:46)
--- NOTE | 2021-06-29 16:12 | HO.PSYCHPN ---
Subjective Subjective Date of Service: 06/29/21 Reason For Visit: anxiety disorder, Cannabis use disorder Interim History: Patient reports that she still feel[s] like shit. However she acknowledges that the Ativan has been helping. Patient still says that she is sleepy and does not feel good and is reticent to talk, lying in bed mostly with the covers over her face. A couple time she says that they got her lunch wrong which upset her and she momentarily lives out of few Tearful sobs but otherwise thanks typewriter ribbon winder for checking in on her. She reports having some diarrhea and agrees to Imodium. Patient says that she only drinks alcohol and uses crack cocaine, never heroin but that there is likely and a fentanyl in various substances that she is withdrawing from that as well. Mental Status Exam Mental Status Exam Narrative: Pt is alert and oriented; behavior is lying in bed, sheet over face, in active etoh withdrawal; dressed in casual attire, unkempt; mood is described as shit and affect anxious; minimal contact appropriate; Speech is normal rate, volume and prosody and not pressured; no psychomotor agitation present; thought process is goal directed; Thought content is on withdawal discomfort; no SI/ HI. There is no evidence of perceptual disturbance. ?Patients insight and judgment are impaired. Diagnostics Vital Signs (24Hr): Vital Signs - 24 hr 06/28/21 18:00 06/29/21 08:32 Temperature 98.1 F 97.8 F Pulse Rate 78 72 Respiratory Rate 16 Blood Pressure 119/69 130/65 Pulse Oximetry 78 L 97 BMI result Body Mass Index 18.7 Labs Results: 06/28/21 07:21 Labs: Laboratory Results - last 48 hr 06/28/21 06/28/21 07:21 07:21 Sodium 135 Potassium 4.8 D Chloride 105 Carbon Dioxide 23 Anion Gap 12 BUN 13 Creatinine 0.70 Estim Creat Clear Calc 110.3 Estimated GFR > 60 Fasting Glucose 90 Calcium 9.1 Magnesium 2.0 Total Bilirubin 0.3 AST 46 H ALT 37 H Alkaline Phosphatase 77 D Total Protein 6.5 Albumin 3.5 Vitamin B12 477 Folate 10.8 TSH 0.34 Free T4 0.84 Medications Medications Current Medications Acetaminophen (Acetaminophen 325 Mg Tablet) 650 mg PO Q6H PRN PRN Reason: Headache/Pain Mild Scale (1-3) Last Admin: 06/29/21 12:56 Dose: 650 mg Documented by: Al Hydroxide/Mg Hydroxide (Magnesium Hydrox/Alum Hydrox 30 Ml Oral.Susp) 30 ml PO Q6H PRN PRN Reason: Heartburn/Nausea Clonidine HCl (Clonidine Hcl 0.1 Mg Tablet) 0.1 mg PO Q4H PRN; Protocol PRN Reason: hyperarousal Last Admin: 06/28/21 19:13 Dose: 0.1 mg Documented by: Folic Acid (Folic Acid 1 Mg Tablet) 1 mg PO DAILY [facility] Stop: 07/02/21 08:59 Last Admin: 06/29/21 08:45 Dose: 1 mg Documented by: Gabapentin (Gabapentin 300 Mg Capsule) 300 mg PO TID [facility] Last Admin: 06/29/21 14:23 Dose: 300 mg Documented by: Hydroxyzine HCl (Hydroxyzine Hcl 25 Mg Tablet) 25 mg PO Q6H PRN PRN Reason: Anxiety Last Admin: 06/29/21 14:46 Dose: 25 mg Documented by: Loperamide HCl (Loperamide Hcl 2 Mg Capsule) 2 mg PO Q6H PRN PRN Reason: diarrhea Last Admin: 06/29/21 14:45 Dose: 2 mg Documented by: Lorazepam (Lorazepam 1 Mg Tablet) 1 mg PO TID [facility] Last Admin: 06/29/21 14:23 Dose: 1 mg Documented by: Lorazepam (Lorazepam 1 Mg Tablet) 1 mg PO Q2H PRN PRN Reason: CIWA 6-12 Lorazepam (Lorazepam 1 Mg Tablet) 2 mg PO Q2H PRN PRN Reason: CIWA 13 and greater Magnesium Hydroxide (Milk Of Magnesia 30 Ml Oral.Susp) 30 ml PO DAILY PRN PRN Reason: Constipation Multivitamins/Vitamin C (Multivitamin Tablet) 1 tab PO DAILY [facility] Stop: 07/02/21 08:59 Last Admin: 06/29/21 08:45 Dose: 1 tab Documented by: Ondansetron HCl (Ondansetron Odt 8 Mg Tab.Rapdis) 8 mg TRANSLINGU Q8H PRN PRN Reason: nausea Thiamine HCl (Thiamine Hcl 100 Mg Tablet) 100 mg PO DAILY [facility] Stop: 07/01/21 14:34 Last Admin: 06/29/21 08:45 Dose: 100 mg Documented by: Trazodone HCl (Trazodone Hcl 50 Mg Tablet) 50 mg PO BEDTIME PRN PRN Reason: Insomnia Last Admin: 06/27/21 23:09 Dose: 50 mg Documented by: Allergies Allergies Allergy/AdvReac Type Severity Reaction Status Date / Time povidone-iodine Allergy Unknown ITCHING Unverified 01/04/20 16:51 [From BETADINE] soap [From BETADINE] Allergy Unknown ITCHING Unverified 01/04/20 16:51 Assessment & Plan Assessment & Plan (1) Depression: Status: Acute Code(s): F32.A - Depression, unspecified (2) Alcohol dependence: Status: Acute Code(s): F10.20 - Alcohol dependence, uncomplicated (3) Cocaine abuse: Status: Acute Code(s): F14.10 - Cocaine abuse, uncomplicated (4) Alcohol withdrawal delirium: Status: Inactive Code(s): F10.231 - Alcohol dependence with withdrawal delirium Plan Pt is a 53 yo female with hx of PTSD, alcohol, cocaine abuse/dependence, currently in alcohol withdrawal who presents for depression, SI s/p overdose. -limited historian, likely due to discomfort from withdrawal symptoms -some beginning signs of alcohol delirum which resolved with ativan 2mg and gabapentin 300mg -will revisit HPI and hx as pt able to tolerate interview 06/29 Patient has improved some however remains in much discomfort due to withdrawal and still does not want to talk much. Patient has scored mildly With some moderate CIWA scores. Will continue to treat for withdrawal symptoms plan: cv q15mn CIWA gave ativan 2mg one time dose ativan/gabapentin taper Ativan prn for breakthrough symptoms folic acid, thiamine I spent minutes with the patient and/or on the patient floor today, greater than?50% of which was spent counseling/coordinating care. Patient educated on: substance abuse Informed Consent: understands Reason for contiued inpatient stay Substantial Risk for: rapid decompensation
[2021-06-29 16:30] VITALS: BP 140/68; PULSE 104; TEMP 36.9; O2SAT 95
[2021-06-29] MEDS: cloNIDine HCL 0.1 MG TABLET PO ×2 (16:45→21:00)
[2021-06-29] MEDS: LORazepam 1 MG TABLET 2 MG PO ×2 (16:46→21:00)
[2021-06-29] MEDS: Famotidine 20 MG TABLET PO (16:51)
[2021-06-29] MEDS: Cyclobenzaprine HCl 10 MG TABLET PO (19:23)
[2021-06-29] MEDS: traZODone HCL 50 MG TABLET PO ×2 (20:18→22:17)
[2021-06-30] MEDS: traZODone HCL 50 MG TABLET PO ×2 (03:24→21:29)
[2021-06-30] MEDS: LORazepam 1 MG TABLET 2 MG PO ×2 (03:38→15:54)
[2021-06-30 06:00] VITALS: BP 129/84; PULSE 76; RESP 18; TEMP 36.8; O2SAT 97
[2021-06-30] MEDS: Folic Acid 1 MG TABLET PO (08:33)
[2021-06-30] MEDS: Gabapentin 300 MG CAPSULE PO ×3 (08:33→21:22)
[2021-06-30] MEDS: Thiamine HCL 100 MG TABLET PO (08:33)
[2021-06-30] MEDS: Multivitamin TABLET 1 TAB PO (08:33)
[2021-06-30] MEDS: LORazepam 1 MG TABLET PO ×2 (08:33→14:31)
[2021-06-30] MEDS: Famotidine 20 MG TABLET PO (08:33)
[2021-06-30] MEDS: Acetaminophen 325 MG TABLET 650 MG PO ×2 (08:43→19:06)
[2021-06-30] MEDS: hydrOXYzine HCL 25 MG TABLET PO (13:33)
[2021-06-30] MEDS: Cyclobenzaprine HCl 10 MG TABLET PO ×2 (13:36→21:21)
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
[2021-06-30] MEDS: Sertraline HCL 25 MG TABLET PO (15:26)
--- NOTE | 2021-06-30 15:45 | PC.NURSE ---
Patient had 2 sutures in her left wrist after removing the third suture herself yesterday. MD assessed pt's wound and determined it was healed and to remove the sutures. T/W removed the remaining sutures without difficulty. Pt tolerated well. Wound look is intact, no drainage or s/sx of infection. Bacitracin and band aid applied.
[2021-06-30 15:50] VITALS: BP 137/87; PULSE 113; TEMP 36.9; O2SAT 97
[2021-06-30] MEDS: cloNIDine HCL 0.1 MG TABLET PO ×2 (15:52→21:29)
[2021-06-30] MEDS: QUEtiapine Fumarate 100 MG TABLET PO (21:22)
--- NOTE | 2021-06-30 23:30 | ECG_ITS ---
Test Reason : cp Blood Pressure : / mmHG Vent. Rate : 094 BPM Atrial Rate : 094 BPM P-R Int : 132 ms QRS Dur : 086 ms QT Int : 368 ms P-R-T Axes : 063 069 043 degrees QTc Int : 460 ms Normal sinus rhythm Possible Left atrial enlargement Left ventricular hypertrophy ( Sokolow-Mejia , Romhilt-Alatorre ) Nonspecific T wave abnormality Prolonged QT Abnormal ECG When compared with ECG of 16-JUN-2021 05:05, Nonspecific T wave abnormality now evident in Anterior leads Referred By: Kyle Banuelos Electronically Signed By:DREW BOONE
[2021-06-30 23:39] LABS: Glucose, Whole Blood 92 mg/dL (60-115)
--- NOTE | 2021-06-30 23:53 | PM.EVENT ---
Event Note Date of Service: 06/30/21 Event Note: Rapid response note: Rapid response was called around 23:45 on 06/30/2021. For RN patient mentioned that she is feeling weak, sat on the floor and subsequently laid on the floor; denies any fall. Patient does not have any seizure-like episode. Patient upon asking reports she has generalized body aches. Exam benign Patient walked fine into her room. Will obtain basic labs, EKG nonischemic; also obtain troponins.
[2021-07-01 00:03] LABS: MANUAL DIFF FLAG NO
[2021-07-01 00:06] LABS: Basophils Absolute Auto 0.1 X10*3/uL (0.0-0.2); Basophils Percent Auto 0.8 % (0-2); Eosinophils Absolute Auto 0.2 X10*3/uL (0.0-0.4); Eosinophils Percent Auto 1.7 % (0-4); Hematocrit 37.6 % (37.0-47.0); Imm Gran Abs Auto 0.04 X10*3/uL (0.00-0.03); Imm Gran Pct Auto 0.4 % (0.0-0.4); Lymphocytes Absolute Auto 3.5 X10*3/uL (1.2-4.9); Lymphocytes Percent Auto 35.7 % (20-40); Mean Corpuscular HGB Conc 31.9 g/dl (31.0-35.0); Mean Corpuscular Hemoglobin 26.9 pg (27.0-33.0); Mean Corpuscular Volume 84.3 fL (80.0-98.0); Mean Platelet Volume 9.3 fL (9.4-12.3); Monocytes Percent Auto 10.1 % (2-11); Neutrophils Absolute Auto 5.1 x10*3/uL (2.0-8.3); Neutrophils Percent Auto 51.3 % (45-73); Platelet Count 339 X10*3/uL (160-400); Red Blood Count 4.46 X10*6/uL (4.20-5.50); Red Cell Distribution Width 18.1 % (11.0-16.0); White Blood Count 9.9 X10*3/uL (4.8-10.8)
--- NOTE | 2021-07-01 00:10 | PC.NURSE ---
Patient had been asleep in her room and then came out of her room at 2337 and sat down on the floor in front of the nurses' station. Patient c/o not feeling good and c/o restless legs and heart pain. A rapid response was called and patient was evaluated by the rapid response team. Vital signs were done and WNL. EKG and labs were ordered and done. Patient reassured and will continue to monitor.
[2021-07-01] MEDS: hydrOXYzine HCL 25 MG TABLET PO (00:15)
[2021-07-01 00:23] LABS: Troponin-I High Sensitivity < 3.5 ng/L (<3.5-17.0)
[2021-07-01 00:25] LABS: Anion Gap 14 (12-20); Blood Urea Nitrogen 15 mg/dL (9-16); Calcium 9.4 mg/dL (8.4-10.2); Carbon Dioxide 25 mmol/L (22-29); Chloride 105 mmol/L (96-108); Creatinine Clr Calc Pharmacy 104.4; Estimated Glomerular Filt Rate > 60; Glucose Random 99 mg/dL (60-115); Potassium 4.6 mmol/L (3.3-5.1); Sodium 139 mmol/L (135-145)
[2021-07-01 03:30] LABS: Troponin-I High Sensitivity < 3.5 ng/L (<3.5-17.0)
[2021-07-01 06:00] VITALS: BP 132/86; PULSE 92; RESP 18; TEMP 36.5; O2SAT 96
[2021-07-01 08:00] VITALS: PULSE 92
[2021-07-01] MEDS: Sertraline HCL 50 MG TABLET PO (09:39)
[2021-07-01] MEDS: Famotidine 20 MG TABLET PO (09:39)
[2021-07-01] MEDS: LORazepam 1 MG TABLET PO ×3 (09:39→20:20)
[2021-07-01] MEDS: Thiamine HCL 100 MG TABLET PO (09:39)
[2021-07-01] MEDS: Multivitamin TABLET 1 TAB PO (09:39)
[2021-07-01] MEDS: Folic Acid 1 MG TABLET PO (09:39)
[2021-07-01] MEDS: cloNIDine HCL 0.1 MG TABLET PO ×2 (13:18→20:20)
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
[2021-07-01] MEDS: QUEtiapine Fumarate 25 MG TABLET PO (15:13)
--- NOTE | 2021-07-01 16:30 | P.PNPSI_ITS ---
Subjective Subjective Date of Service: 07/01/21 Reason For Visit: anxiety disorder, Cannabis use disorder Interim History: Patient tearful saying that she is being ignored by nursing and when she asks for something for anxiety known offers her her p.r.n. Seroquel or when she complains of muscle aches no one offers her Flexeril. Patient said she wants to leave because she hates this place but then back tracks and says she does not really want to leave that she does want to get sober but she is just feeling miserable in her withdrawal. No SI. Patient reported to nursing some vaginal discharge and so telegraphic typewriter mechanic ordered UA and chlamydia gonorrhea lab Mental Status Exam Mental Status Exam Narrative: Pt is alert and oriented; behavior is tearful; dressed in casual attire, adequate hygiene; mood is described as upset and affect anxious, tearful; eye contact appropriate; Speech is normal rate, volume and prosody and not pressured; no psychomotor agitation present; thought process is goal directed; Thought content is on life problems; denies SI/ HI. There is no evidence of perceptual disturbance. ?Patients insight and judgment are impaired but improving Diagnostics Vital Signs (24Hr): Vital Signs - 24 hr 07/01/21 06:00 Temperature 97.7 F Pulse Rate 92 Respiratory Rate 18 Blood Pressure 132/86 Pulse Oximetry 96 BMI result Body Mass Index 18.7 Labs Results: 06/30/21 23:59 06/30/21 23:59 Labs: Laboratory Results - last 48 hr 06/30/21 06/30/21 06/30/21 23:34 23:59 23:59 WBC 9.9 RBC 4.46 Hgb 12.0 Hct 37.6 MCV 84.3 MCH 26.9 L MCHC 31.9 RDW 18.1 H Plt Count 339 MPV 9.3 L Immature Gran % (Auto) 0.4 Neut % (Auto) 51.3 Lymph % (Auto) 35.7 [place] % (Auto) 10.1 Eos % (Auto) 1.7 Baso % (Auto) 0.8 Lymph # (Auto) 3.5 [place] # (Auto) 1.0 Eos # (Auto) 0.2 Baso # (Auto) 0.1 Abs Immat Gran (auto) 0.04 H Absolute Neuts (auto) 5.1 Absolute Nucleated RBC 0.000 Nucleated RBC % (auto) 0.0 Sodium 139 Potassium 4.6 Chloride 105 Carbon Dioxide 25 Anion Gap 14 BUN 15 Creatinine 0.74 Estim Creat Clear Calc 104.4 Estimated GFR > 60 POC Glucose 92 Random Glucose 99 Calcium 9.4 Troponin I High Sens 06/30/21 07/01/21 23:59 03:06 WBC RBC Hgb Hct MCV MCH MCHC RDW Plt Count MPV Immature Gran % (Auto) Neut % (Auto) Lymph % (Auto) [place] % (Auto) Eos % (Auto) Baso % (Auto) Lymph # (Auto) [place] # (Auto) Eos # (Auto) Baso # (Auto) Abs Immat Gran (auto) Absolute Neuts (auto) Absolute Nucleated RBC Nucleated RBC % (auto) Sodium Potassium Chloride Carbon Dioxide Anion Gap BUN Creatinine Estim Creat Clear Calc Estimated GFR POC Glucose Random Glucose Calcium Troponin I High Sens < 3.5 < 3.5 Medications Medications Current Medications Acetaminophen (Acetaminophen 325 Mg Tablet) 650 mg PO Q6H PRN PRN Reason: Headache/Pain Mild Scale (1-3) Last Admin: 06/30/21 19:06 Dose: 650 mg Documented by: Al Hydroxide/Mg Hydroxide (Magnesium Hydrox/Alum Hydrox 30 Ml Oral.Susp) 30 ml PO Q6H PRN PRN Reason: Heartburn/Nausea Clonidine HCl (Clonidine Hcl 0.1 Mg Tablet) 0.1 mg PO Q4H PRN; Protocol PRN Reason: Anxiety Last Admin: 07/01/21 13:18 Dose: 0.1 mg Documented by: Cyclobenzaprine HCl (Cyclobenzaprine Hcl 10 Mg Tablet) 10 mg PO TID PRN PRN Reason: muscle aches Last Admin: 06/30/21 21:21 Dose: 10 mg Documented by: Famotidine (Famotidine 20 Mg Tablet) 20 mg PO DAILY [facility] Last Admin: 07/01/21 09:39 Dose: 20 mg Documented by: Folic Acid (Folic Acid 1 Mg Tablet) 1 mg PO DAILY [facility] Stop: 07/02/21 08:59 Last Admin: 07/01/21 09:39 Dose: 1 mg Documented by: Gabapentin (Gabapentin 300 Mg Capsule) 300 mg PO BID [facility] Stop: 07/03/21 23:50 Gabapentin (Gabapentin 300 Mg Capsule) 300 mg PO DAILY [facility] Stop: 07/05/21 23:50 Hydroxyzine HCl (Hydroxyzine Hcl 25 Mg Tablet) 25 mg PO Q6H PRN PRN Reason: Anxiety Last Admin: 07/01/21 00:15 Dose: 25 mg Documented by: Loperamide HCl (Loperamide Hcl 2 Mg Capsule) 2 mg PO Q6H PRN PRN Reason: diarrhea Last Admin: 06/29/21 14:45 Dose: 2 mg Documented by: Loperamide HCl (Loperamide Hcl 2 Mg Capsule) 2 mg PO Q4H PRN PRN Reason: Loose Stool Lorazepam (Lorazepam 1 Mg Tablet) 1 mg PO Q2H PRN PRN Reason: CIWA 6-12 Lorazepam (Lorazepam 1 Mg Tablet) 2 mg PO Q2H PRN PRN Reason: CIWA 13 and greater Last Admin: 06/30/21 15:54 Dose: 2 mg Documented by: Lorazepam (Lorazepam 1 Mg Tablet) 1 mg PO BID [facility] Last Admin: 07/01/21 09:39 Dose: 1 mg Documented by: Magnesium Hydroxide (Milk Of Magnesia 30 Ml Oral.Susp) 30 ml PO DAILY PRN PRN Reason: Constipation Multivitamins/Vitamin C (Multivitamin Tablet) 1 tab PO DAILY [facility] Stop: 07/02/21 08:59 Last Admin: 07/01/21 09:39 Dose: 1 tab Documented by: Nicotine (Nicotine 21 Mg Patch.Td24) 21 mg TRANSDERMA DAILY PRN PRN Reason: smoking cessation Nicotine Polacrilex (Nicotine Polacrilex Lozenge 4 Mg Lozenge) 4 mg BUCCAL Q2H PRN PRN Reason: Nicotine Cravings Ondansetron HCl (Ondansetron Odt 8 Mg Tab.Rapdis) 8 mg TRANSLINGU Q8H PRN PRN Reason: nausea Ondansetron HCl (Ondansetron Odt 4 Mg Tab.Rapdis) 4 mg TRANSLINGU Q6H PRN PRN Reason: nasuea Quetiapine Fumarate (Quetiapine Fumarate 100 Mg Tablet) 100 mg PO BEDTIME [facility] Last Admin: 06/30/21 21:22 Dose: 100 mg Documented by: Quetiapine Fumarate (Quetiapine Fumarate 25 Mg Tablet) 25 mg PO QID PRN PRN Reason: anxiety Sertraline HCl (Sertraline Hcl 50 Mg Tablet) 50 mg PO DAILY [facility] Last Admin: 07/01/21 09:39 Dose: 50 mg Documented by: Trazodone HCl (Trazodone Hcl 50 Mg Tablet) 50 mg PO BEDTIME PRN PRN Reason: Insomnia Last Admin: 06/30/21 21:29 Dose: 50 mg Documented by: Allergies Allergies Allergy/AdvReac Type Severity Reaction Status Date / Time povidone-iodine Allergy Unknown ITCHING Unverified 01/04/20 16:51 [From BETADINE] soap [From BETADINE] Allergy Unknown ITCHING Unverified 01/04/20 16:51 Assessment & Plan Assessment & Plan (1) Depression: Status: Acute Code(s): F32.A - Depression, unspecified (2) Alcohol dependence: Status: Acute Code(s): F10.20 - Alcohol dependence, uncomplicated (3) Cocaine abuse: Status: Acute Code(s): F14.10 - Cocaine abuse, uncomplicated (4) Alcohol withdrawal delirium: Status: Resolved Code(s): F10.231 - Alcohol dependence with withdrawal delirium Assessment and Plan: resolved (5) Chronic post-traumatic stress disorder (PTSD): Status: Chronic Code(s): F43.12 - Post-traumatic stress disorder, chronic Plan Pt is a 53 yo female with hx of PTSD, alcohol, cocaine abuse/dependence, currently in alcohol withdrawal who presents for depression, SI s/p overdose. -limited historian, likely due to discomfort from withdrawal symptoms -some beginning signs of alcohol delirum which resolved with ativan 2mg and gabapentin 300mg -will revisit HPI and hx as pt able to tolerate interview 06/29 Patient has improved some however remains in much discomfort due to withdrawal and still does not want to talk much. Patient has scored mildly With some moderate CIWA scores. Will continue to treat for withdrawal symptoms 06/30 patient doing little better today and able to engage in interview. Patient is depressed though no SI. Continues to struggle through withdrawal. Would like Seroquel restarted and Zoloft restarted and titrated to effective dose, never having been higher than 25 mg. Patient is very sad about her children being in DCF custody. 07/01 remains tearful feeling neglected, anxious and in withdrawal. Patient reported to nursing some vaginal discharge and so telegraphic typewriter mechanic ordered UA and chlamydia gonorrhea lab plan: Ordered UA Ordered chlamydia gonorrhea lab CV q15mn CIWA gave ativan 2mg one time dose ativan/gabapentin taper Ativan prn for breakthrough symptoms folic acid, thiamine Continue Seroquel 100mg qhs for insomnia Continue Seroquel 25mg qid prn for anxiety Titrate Zoloft to 75mg for ptsd, depression hx of being on magnesium oxide History of being on iron supplement: currently H&H WNL Rajeev on left wrist placed on 06/16; area is well healed rajeev are able to be removed I spent minutes with the patient and/or on the patient floor today, greater than?50% of which was spent counseling/coordinating care. Patient educated on: substance abuse Informed Consent: understands Reason for contiued inpatient stay Substantial Risk for: rapid decompensation
[2021-07-01] MEDS: Cyclobenzaprine HCl 10 MG TABLET PO ×2 (17:10→22:38)
[2021-07-01] MEDS: QUEtiapine Fumarate 50 MG TABLET PO ×2 (17:18→18:54)
[2021-07-01] MEDS: Nicotine Polacrilex 2 MG GUM 4 MG BUCCAL (20:20)
[2021-07-01] MEDS: QUEtiapine Fumarate 100 MG TABLET PO (20:20)
[2021-07-01] MEDS: Gabapentin 300 MG CAPSULE PO (20:20)
[2021-07-01 21:00] VITALS: BP 139/85; PULSE 116; TEMP 36.9; O2SAT 99
[2021-07-01] MEDS: traZODone HCL 50 MG TABLET PO (21:12)
[2021-07-01] MEDS: LORazepam 1 MG TABLET 2 MG PO (22:43)
[2021-07-02] MEDS: Acetaminophen 325 MG TABLET 650 MG PO (02:18)
[2021-07-02] MEDS: hydrOXYzine HCL 25 MG TABLET PO (02:18)
[2021-07-02 06:00] VITALS: BP 117/84; PULSE 84; RESP 18; TEMP 36.3; O2SAT 100
[2021-07-02 08:00] VITALS: PULSE 84
[2021-07-02] MEDS: Sertraline HCL 25 MG TABLET 75 MG PO (09:10)
[2021-07-02] MEDS: Famotidine 20 MG TABLET PO (09:10)
[2021-07-02] MEDS: Gabapentin 300 MG CAPSULE PO ×2 (09:11→20:49)
[2021-07-02] MEDS: LORazepam 1 MG TABLET PO ×3 (09:11→20:49)
[2021-07-02] MEDS: QUEtiapine Fumarate 50 MG TABLET PO ×3 (09:12→17:24)
[2021-07-02] MEDS: cloNIDine HCL 0.1 MG TABLET PO ×3 (13:31→22:37)
[2021-07-02 15:48] LABS: Appearance Urine HAZY; Color Urine YELLOW; Glucose Urine UA NEG (NEG); Leukocyte Esterase Urine 2+ (NEG); Nitrite Urine NEG (NEG); PH 5.5 (5.0-8.0); UACC Culture Trigger YES; Urine Blood NEG (NEG); Urine Ketones NEG (NEG); Urine Protein NEG (NEG-TRACE)
[2021-07-02 15:50] LABS: UPreg QC Valid YES; Urine Pregnancy NEGATIVE (NEGATIVE)
[2021-07-02 16:04] LABS: RBC Urine 0-2 /HPF (0); Squamous Epithelial Cell Urine 2+ /LPF; Trichomonas Urine NOTED; UACC CULT YES
[2021-07-02 16:05] LABS: Mucus Urine TRACE /LPF; WBC Clumps Urine NOTED
[2021-07-02 18:00] VITALS: BP 140/90; PULSE 100; TEMP 36.6; O2SAT 100
--- NOTE | 2021-07-02 18:22 | HO.PSYCHPN ---
Subjective Subjective Date of Service: 07/02/21 Reason For Visit: anxiety disorder, Cannabis use disorder Interim History: pt reports feeling a little better; denies SI. She is ambivalent about staying on the unit or discharging but she agrees that she should probably stay. c/o vaginal discharge and some mild abdominal pain; she informs policy writer sales that she's had unprotected intercourse and would like testing. She also agrees to getting on Naltrexone (policy writer sales reviewed risks/side-effects) to help with substance abuse. Mental Status Exam Mental Status Exam Narrative: Pt is alert and oriented; behavior is cooperative, more calm; dressed in casual attire, unkempt but adequate hygiene; mood is described as ok and affect calmer, congruent; eye contact appropriate; Speech is normal rate, volume and prosody and not pressured; no psychomotor agitation present; thought process is goal directed; Thought content is on life problems; denies SI/ HI. There is no evidence of perceptual disturbance. ?Patients insight and judgment are impaired but improving Diagnostics Vital Signs (24Hr): Vital Signs - 24 hr 07/01/21 21:00 07/02/21 06:00 Temperature 98.4 F 97.4 F Pulse Rate 116 H 84 Respiratory Rate 18 Blood Pressure 139/85 117/84 Pulse Oximetry 99 100 BMI result Body Mass Index 18.7 Labs Results: 06/30/21 23:59 06/30/21 23:59 Labs: Laboratory Results - last 48 hr 06/30/21 06/30/21 06/30/21 23:34 23:59 23:59 WBC 9.9 RBC 4.46 Hgb 12.0 Hct 37.6 MCV 84.3 MCH 26.9 L MCHC 31.9 RDW 18.1 H Plt Count 339 MPV 9.3 L Immature Gran % (Auto) 0.4 Neut % (Auto) 51.3 Lymph % (Auto) 35.7 [place] % (Auto) 10.1 Eos % (Auto) 1.7 Baso % (Auto) 0.8 Lymph # (Auto) 3.5 [place] # (Auto) 1.0 Eos # (Auto) 0.2 Baso # (Auto) 0.1 Abs Immat Gran (auto) 0.04 H Absolute Neuts (auto) 5.1 Absolute Nucleated RBC 0.000 Nucleated RBC % (auto) 0.0 Sodium 139 Potassium 4.6 Chloride 105 Carbon Dioxide 25 Anion Gap 14 BUN 15 Creatinine 0.74 Estim Creat Clear Calc 104.4 Estimated GFR > 60 POC Glucose 92 Random Glucose 99 Calcium 9.4 Troponin I High Sens Urine Color Urine Appearance Urine pH Ur Specific Spangle Urine Protein Urine Glucose (UA) Urine Ketones Urine Blood Urine Nitrite Ur Leukocyte Esterase Urine RBC Urine WBC Urine WBC Clumps Ur Squamous Epith Cells Urine Bacteria Urine Mucus Urine Trichomonas Urine Test 06/30/21 07/01/21 07/02/21 23:59 03:06 13:30 WBC RBC Hgb Hct MCV MCH MCHC RDW Plt Count MPV Immature Gran % (Auto) Neut % (Auto) Lymph % (Auto) [place] % (Auto) Eos % (Auto) Baso % (Auto) Lymph # (Auto) [place] # (Auto) Eos # (Auto) Baso # (Auto) Abs Immat Gran (auto) Absolute Neuts (auto) Absolute Nucleated RBC Nucleated RBC % (auto) Sodium Potassium Chloride Carbon Dioxide Anion Gap BUN Creatinine Estim Creat Clear Calc Estimated GFR POC Glucose Random Glucose Calcium Troponin I High Sens < 3.5 < 3.5 Urine Color YELLOW Urine Appearance HAZY Urine pH 5.5 Ur Specific [place] 1.020 Urine Protein NEG Urine Glucose (UA) NEG Urine Ketones NEG Urine Blood NEG Urine Nitrite NEG Ur Leukocyte Esterase 2+ H Urine RBC 0-2 Urine WBC 10-14 H Urine WBC Clumps NOTED Ur Squamous Epith Cells 2+ Urine Bacteria NONE Urine Mucus TRACE Urine Trichomonas NOTED Urine Test 07/02/21 13:30 WBC RBC Hgb Hct MCV MCH MCHC RDW Plt Count MPV Immature Gran % (Auto) Neut % (Auto) Lymph % (Auto) [place] % (Auto) Eos % (Auto) Baso % (Auto) Lymph # (Auto) [place] # (Auto) Eos # (Auto) Baso # (Auto) Abs Immat Gran (auto) Absolute Neuts (auto) Absolute Nucleated RBC Nucleated RBC % (auto) Sodium Potassium Chloride Carbon Dioxide Anion Gap BUN Creatinine Estim Creat Clear Calc Estimated GFR POC Glucose Random Glucose Calcium Troponin I High Sens Urine Color Urine Appearance Urine pH Ur Specific [place]angle Urine Protein Urine Glucose (UA) Urine Ketones Urine Blood Urine Nitrite Ur Leukocyte Esterase Urine RBC Urine WBC Urine WBC Clumps Ur Squamous Epith Cells Urine Bacteria Urine Mucus Urine Trichomonas Urine Test NEGATIVE Medications Medications Current Medications Acetaminophen (Acetaminophen 325 Mg Tablet) 650 mg PO Q6H PRN PRN Reason: Headache/Pain Mild Scale (1-3) Last Admin: 07/02/21 02:18 Dose: 650 mg Documented by: Al Hydroxide/Mg Hydroxide (Magnesium Hydrox/Alum Hydrox 30 Ml Oral.Susp) 30 ml PO Q6H PRN PRN Reason: Heartburn/Nausea Clonidine HCl (Clonidine Hcl 0.1 Mg Tablet) 0.1 mg PO Q4H PRN; Protocol PRN Reason: Anxiety Last Admin: 07/02/21 13:31 Dose: 0.1 mg Documented by: Cyclobenzaprine HCl (Cyclobenzaprine Hcl 10 Mg Tablet) 10 mg PO TID PRN PRN Reason: muscle aches Last Admin: 07/01/21 22:38 Dose: 10 mg Documented by: Famotidine (Famotidine 20 Mg Tablet) 20 mg PO DAILY [facility] Last Admin: 07/02/21 09:10 Dose: 20 mg Documented by: Gabapentin (Gabapentin 300 Mg Capsule) 300 mg PO BID [facility] Stop: 07/03/21 23:50 Last Admin: 07/02/21 09:11 Dose: 300 mg Documented by: Gabapentin (Gabapentin 300 Mg Capsule) 300 mg PO DAILY [facility] Stop: 07/05/21 23:50 Hydroxyzine HCl (Hydroxyzine Hcl 25 Mg Tablet) 25 mg PO Q6H PRN PRN Reason: Anxiety Last Admin: 07/02/21 02:18 Dose: 25 mg Documented by: Loperamide HCl (Loperamide Hcl 2 Mg Capsule) 2 mg PO Q6H PRN PRN Reason: diarrhea Last Admin: 06/29/21 14:45 Dose: 2 mg Documented by: Loperamide HCl (Loperamide Hcl 2 Mg Capsule) 2 mg PO Q4H PRN PRN Reason: Loose Stool Lorazepam (Lorazepam 1 Mg Tablet) 1 mg PO Q2H PRN PRN Reason: CIWA 6-12 Last Admin: 07/02/21 17:24 Dose: 1 mg Documented by: Lorazepam (Lorazepam 1 Mg Tablet) 2 mg PO Q2H PRN PRN Reason: CIWA 13 and greater Last Admin: 07/01/21 22:43 Dose: 2 mg Documented by: Lorazepam (Lorazepam 1 Mg Tablet) 1 mg PO BID [facility] Last Admin: 07/02/21 09:11 Dose: 1 mg Documented by: Magnesium Hydroxide (Milk Of Magnesia 30 Ml Oral.Susp) 30 ml PO DAILY PRN PRN Reason: Constipation Nicotine (Nicotine 21 Mg Patch.Td24) 21 mg TRANSDERMA DAILY PRN PRN Reason: smoking cessation Nicotine Polacrilex (Nicotine Polacrilex 2 Mg Gum) 4 mg BUCCAL Q2H PRN PRN Reason: Nicotine Cravings Last Admin: 07/01/21 20:20 Dose: 4 mg Documented by: Ondansetron HCl (Ondansetron Odt 8 Mg Tab.Rapdis) 8 mg TRANSLINGU Q8H PRN PRN Reason: nausea Ondansetron HCl (Ondansetron Odt 4 Mg Tab.Rapdis) 4 mg TRANSLINGU Q6H PRN PRN Reason: nasuea Quetiapine Fumarate (Quetiapine Fumarate 100 Mg Tablet) 100 mg PO BEDTIME [facility] Last Admin: 07/01/21 20:20 Dose: 100 mg Documented by: Quetiapine Fumarate (Quetiapine Fumarate 50 Mg Tablet) 50 mg PO TID PRN PRN Reason: anxiety Last Admin: 07/02/21 17:24 Dose: 50 mg Documented by: Sertraline HCl (Sertraline Hcl 25 Mg Tablet) 75 mg PO DAILY [facility] Last Admin: 07/02/21 09:10 Dose: 75 mg Documented by: Trazodone HCl (Trazodone Hcl 50 Mg Tablet) 50 mg PO BEDTIME PRN PRN Reason: Insomnia Last Admin: 07/01/21 21:12 Dose: 50 mg Documented by: Allergies Allergies Allergy/AdvReac Type Severity Reaction Status Date / Time povidone-iodine Allergy Unknown ITCHING Unverified 01/04/20 16:51 [From BETADINE] soap [From BETADINE] Allergy Unknown ITCHING Unverified 01/04/20 16:51 Assessment & Plan Assessment & Plan (1) Depression: Status: Acute Code(s): F32.A - Depression, unspecified (2) Alcohol dependence: Status: Acute Code(s): F10.20 - Alcohol dependence, uncomplicated (3) Cocaine abuse: Status: Acute Code(s): F14.10 - Cocaine abuse, uncomplicated (4) Alcohol withdrawal delirium: Status: Resolved Code(s): F10.231 - Alcohol dependence with withdrawal delirium Assessment and Plan: resolved (5) Chronic post-traumatic stress disorder (PTSD): Status: Chronic Code(s): F43.12 - Post-traumatic stress disorder, chronic Plan Pt is a 53 yo female with hx of PTSD, alcohol, cocaine abuse/dependence, currently in alcohol withdrawal who presents for depression, SI s/p overdose. -limited historian, likely due to discomfort from withdrawal symptoms -some beginning signs of alcohol delirum which resolved with ativan 2mg and gabapentin 300mg -will revisit HPI and hx as pt able to tolerate interview 06/29 Patient has improved some however remains in much discomfort due to withdrawal and still does not want to talk much. Patient has scored mildly With some moderate CIWA scores. Will continue to treat for withdrawal symptoms 06/30 patient doing little better today and able to engage in interview. Patient is depressed though no SI. Continues to struggle through withdrawal. Would like Seroquel restarted and Zoloft restarted and titrated to effective dose, never having been higher than 25 mg. Patient is very sad about her children being in DCF custody. 07/02 mood improved, no SI; less tearful, more social in [place]; c/o vaginal discharge so will do lab work plan: cv q15mn likely dc CIWA gave ativan 2mg one time dose ativan/gabapentin taper UA test for carissa/chlamydia folic acid, thiamine Seroquel 100mg qhs for insomnia increased to Seroquel 50mg qid prn for anxiety titrate Zoloft to 75mg for ptsd, depression hx of being on magnesium oxide History of being on iron supplement: currently H&H WNL Rajeev on left wrist placed on 06/16; area is well healed rajeev removed I spent minutes with the patient and/or on the patient floor today, greater than?50% of which was spent counseling/coordinating care. Patient educated on: diagnosis, medication risk/benefits, substance abuse and medical condition Informed Consent: understands Reason for contiued inpatient stay Substantial Risk for: rapid decompensation
[2021-07-02] MEDS: QUEtiapine Fumarate 100 MG TABLET PO (20:49)
[2021-07-02] MEDS: traZODone HCL 50 MG TABLET PO ×2 (20:49→22:37)
[2021-07-03 04:52] LABS: CT PCR DETECTED (Not Detect.)
[2021-07-03 04:53] LABS: NG PCR DETECTED (Not Detect.)
[2021-07-03 05:07] LABS: HBS Num1 0.07 mIU/mL (0-7.99); HBc Num1 0.07 S/CO (0.00-0.79); Hepatitis B Core Antibody Nonreactive (Nonreactive); ~HepC Num1 16.14 S/CO (0.00-0.79); ~Hepatitis B Surface Antibody NONREACTIVE (Nonreactive); ~Hepatitis C Antibody Reactive (Nonreactive)
[2021-07-03 05:10] LABS: HBsAGNum1 0.23 S/CO (0.00-0.99); HIV AB/AG Nonreactive (Nonreactive); HIV Num 1 0.05 S/CO (0.00-0.99); Hepatitis B Surface Antigen Negative (Negative)
[2021-07-03 06:00] VITALS: BP 131/76; PULSE 92; RESP 16; TEMP 36.8; O2SAT 98
[2021-07-03 07:00] VITALS: BMI 22.8
[2021-07-03 08:00] VITALS: PULSE 92
[2021-07-03] MEDS: Sertraline HCL 25 MG TABLET 75 MG PO (08:56)
[2021-07-03] MEDS: Famotidine 20 MG TABLET PO (08:56)
[2021-07-03] MEDS: Gabapentin 300 MG CAPSULE PO ×2 (08:56→19:20)
[2021-07-03] MEDS: LORazepam 1 MG TABLET PO ×3 (08:56→19:21)
--- NOTE | 2021-07-03 12:02 | HO.PSYCHPN ---
Subjective Subjective Date of Service: 07/03/21 Reason For Visit: anxiety disorder, Cannabis use disorder Interim History: pt seen with underwriter and SW; she agrees to retract 3 day c/o sore throat and diffuse abdominal pain, dull ache that comes and goes; daily well-formed bowel movements; no nausea/vomiting; patient is eating and drinking w/out discomfort; hx of ovarian torsion focused abdominal exam reveals: diffuse periumbilical tenderness +psoas sign, but negative Rosvings, negative McBurney's point tenderness (pt able to hop on 1 foot w/out too much discomfort); negative Pillai's sign; afebrile informed pt of lab results and treatment with which she agrees to will get additional labs, throat culture; monitor abdominal pain (informed nursing and evaluation assistant provider) Mental Status Exam Mental Status Exam Narrative: Pt is alert and oriented; behavior is cooperative, calm; dressed in casual attire, unkempt but adequate hygiene; mood is described as ok and affect calmer, congruent; eye contact appropriate; Speech is normal rate, volume and prosody and not pressured; no psychomotor agitation present; thought process is goal directed; Thought content is on life problems; denies SI/ HI. There is no evidence of perceptual disturbance. ?Patients insight and judgment are fair and adequate Diagnostics Vital Signs (24Hr): Vital Signs - 24 hr 07/02/21 18:00 07/03/21 06:00 Temperature 97.8 F 98.2 F Pulse Rate 100 92 Respiratory Rate 16 Blood Pressure 140/90 H 131/76 Pulse Oximetry 100 98 BMI result Body Mass Index 18.7 Labs Results: 06/30/21 23:59 06/30/21 23:59 Labs: Laboratory Results - last 48 hr 07/02/21 07/02/21 07/02/21 13:30 13:30 17:30 Urine Color YELLOW Urine Appearance HAZY Urine pH 5.5 Ur Specific [place] 1.020 Urine Protein NEG Urine Glucose (UA) NEG Urine Ketones NEG Urine Blood NEG Urine Nitrite NEG Ur Leukocyte Esterase 2+ H Urine RBC 0-2 Urine WBC 10-14 H Urine WBC Clumps NOTED Ur Squamous Epith Cells 2+ Urine Bacteria NONE Urine Mucus TRACE Urine Trichomonas NOTED Urine Test NEGATIVE Chlam trachomat DNA PCR DETECTED A Hep Bs Antigen Hep Bs Antibody Hep B Core Total Ab Hepatitis C Ab (EIA) HIV 1&2 Ab/P24 Ag 4thGn N.gonorrhoeae DNA (PCR) DETECTED A 07/02/21 17:48 Urine Color Urine Appearance Urine pH Ur Specific [place] Urine Protein Urine Glucose (UA) Urine Ketones Urine Blood Urine Nitrite Ur Leukocyte Esterase Urine RBC Urine WBC Urine WBC Clumps Ur Squamous Epith Cells Urine Bacteria Urine Mucus Urine Trichomonas Urine Test Chlam trachomat DNA PCR Hep Bs Antigen Negative Hep Bs Antibody NONREACTIVE Hep B Core Total Ab Nonreactive Hepatitis C Ab (EIA) Reactive H HIV 1&2 Ab/P24 Ag 4thGn Nonreactive N.gonorrhoeae DNA (PCR) Medications Medications Current Medications Acetaminophen (Acetaminophen 325 Mg Tablet) 650 mg PO Q6H PRN PRN Reason: Headache/Pain Mild Scale (1-3) Last Admin: 07/02/21 02:18 Dose: 650 mg Documented by: Al Hydroxide/Mg Hydroxide (Magnesium Hydrox/Alum Hydrox 30 Ml Oral.Susp) 30 ml PO Q6H PRN PRN Reason: Heartburn/Nausea Ceftriaxone Sodium (Ceftriaxone Sodium 500 Mg Vial) 1,000 mg IM ONCE ONE Stop: 07/03/21 11:48 Clonidine HCl (Clonidine Hcl 0.1 Mg Tablet) 0.1 mg PO Q4H PRN; Protocol PRN Reason: Anxiety Last Admin: 07/02/21 22:37 Dose: 0.1 mg Documented by: Cyclobenzaprine HCl (Cyclobenzaprine Hcl 10 Mg Tablet) 10 mg PO TID PRN PRN Reason: muscle aches Last Admin: 07/01/21 22:38 Dose: 10 mg Documented by: Doxycycline Hyclate (Doxycycline Hyclate 100 Mg Tablet) 100 mg PO BID [facility] Doxycycline Hyclate (Doxycycline Hyclate 100 Mg Tablet) 100 mg PO ONCE ONE Stop: 07/03/21 11:48 Famotidine (Famotidine 20 Mg Tablet) 20 mg PO DAILY [facility] Last Admin: 07/03/21 08:56 Dose: 20 mg Documented by: Gabapentin (Gabapentin 300 Mg Capsule) 300 mg PO BID [facility] Stop: 07/03/21 23:50 Last Admin: 07/03/21 08:56 Dose: 300 mg Documented by: Gabapentin (Gabapentin 300 Mg Capsule) 300 mg PO DAILY [facility] Stop: 07/05/21 23:50 Hydroxyzine HCl (Hydroxyzine Hcl 25 Mg Tablet) 25 mg PO Q6H PRN PRN Reason: Anxiety Last Admin: 07/02/21 02:18 Dose: 25 mg Documented by: Loperamide HCl (Loperamide Hcl 2 Mg Capsule) 2 mg PO Q6H PRN PRN Reason: diarrhea Last Admin: 06/29/21 14:45 Dose: 2 mg Documented by: Loperamide HCl (Loperamide Hcl 2 Mg Capsule) 2 mg PO Q4H PRN PRN Reason: Loose Stool Lorazepam (Lorazepam 1 Mg Tablet) 1 mg PO Q2H PRN PRN Reason: CIWA 6-12 Last Admin: 07/02/21 17:24 Dose: 1 mg Documented by: Lorazepam (Lorazepam 1 Mg Tablet) 2 mg PO Q2H PRN PRN Reason: CIWA 13 and greater Last Admin: 07/01/21 22:43 Dose: 2 mg Documented by: Lorazepam (Lorazepam 1 Mg Tablet) 1 mg PO BID [facility] Last Admin: 07/03/21 08:56 Dose: 1 mg Documented by: Magnesium Hydroxide (Milk Of Magnesia 30 Ml Oral.Susp) 30 ml PO DAILY PRN PRN Reason: Constipation Nicotine (Nicotine 21 Mg Patch.Td24) 21 mg TRANSDERMA DAILY PRN PRN Reason: smoking cessation Nicotine Polacrilex (Nicotine Polacrilex 2 Mg Gum) 4 mg BUCCAL Q2H PRN PRN Reason: Nicotine Cravings Last Admin: 07/01/21 20:20 Dose: 4 mg Documented by: Ondansetron HCl (Ondansetron Odt 8 Mg Tab.Rapdis) 8 mg TRANSLINGU Q8H PRN PRN Reason: nausea Ondansetron HCl (Ondansetron Odt 4 Mg Tab.Rapdis) 4 mg TRANSLINGU Q6H PRN PRN Reason: nasuea Quetiapine Fumarate (Quetiapine Fumarate 100 Mg Tablet) 100 mg PO BEDTIME [facility] Last Admin: 07/02/21 20:49 Dose: 100 mg Documented by: Quetiapine Fumarate (Quetiapine Fumarate 50 Mg Tablet) 50 mg PO TID PRN PRN Reason: anxiety Last Admin: 07/02/21 17:24 Dose: 50 mg Documented by: Sertraline HCl (Sertraline Hcl 25 Mg Tablet) 75 mg PO DAILY [facility] Last Admin: 07/03/21 08:56 Dose: 75 mg Documented by: Trazodone HCl (Trazodone Hcl 50 Mg Tablet) 50 mg PO BEDTIME PRN PRN Reason: Insomnia Last Admin: 07/02/21 22:37 Dose: 50 mg Documented by: Allergies Allergies Allergy/AdvReac Type Severity Reaction Status Date / Time povidone-iodine Allergy Unknown ITCHING Unverified 01/04/20 16:51 [From BETADINE] soap [From BETADINE] Allergy Unknown ITCHING Unverified 01/04/20 16:51 Assessment & Plan Assessment & Plan (1) Depression: Status: Acute Code(s): F32.A - Depression, unspecified (2) Alcohol dependence: Status: Acute Code(s): F10.20 - Alcohol dependence, uncomplicated (3) Cocaine abuse: Status: Acute Code(s): F14.10 - Cocaine abuse, uncomplicated (4) Alcohol withdrawal delirium: Status: Resolved Code(s): F10.231 - Alcohol dependence with withdrawal delirium Assessment and Plan: resolved (5) Chronic post-traumatic stress disorder (PTSD): Status: Chronic Code(s): F43.12 - Post-traumatic stress disorder, chronic Plan Pt is a 53 yo female with hx of PTSD, alcohol, cocaine abuse/dependence, currently in alcohol withdrawal who presents for depression, SI s/p overdose. -limited historian, likely due to discomfort from withdrawal symptoms -some beginning signs of alcohol delirum which resolved with ativan 2mg and gabapentin 300mg -will revisit HPI and hx as pt able to tolerate interview 06/29 Patient has improved some however remains in much discomfort due to withdrawal and still does not want to talk much. Patient has scored mildly With some moderate CIWA scores. Will continue to treat for withdrawal symptoms 06/30 patient doing little better today and able to engage in interview. Patient is depressed though no SI. Continues to struggle through withdrawal. Would like Seroquel restarted and Zoloft restarted and titrated to effective dose, never having been higher than 25 mg. Patient is very sad about her children being in DCF custody. 07/02 mood improved, no SI; less tearful, more social in milue; c/o vaginal discharge so will do lab work 07/03 +hep C, carissa/chlamydia, strep A plan: cv q15mn PTSD/Depression: Seroquel 100mg qhs for insomnia Seroquel 50mg Tid prn for anxiety Zolfot 75mg Polysubstance abuse cocaine/etoh subsequent exposure to opiates: Withdrawal: resolved dc CIWA? completing ativan/gabapentin taper pt says Gabapentin has helped curb cravings in past, but given abuse potential and her talk of dischage, will hold off for now pt agrees to Naltrexone; will start soon, but have waited to avoid any precipitated w/drawal +Gonorrhea +chlamydia: Start on Doxy 100mg BID for 7 days Ceftriaxone 500mg IM one time dose (consulted with both hospitalist and ID Dr. Aburto) Throat cultures carissa/chlamydia pending RPR pending HIV: negative Strep A: Ceftriaxone 500mg IM one time dose (per Dr. Aburto) +Hep C: orderd hep C viral load and genotype consulted ID Dr. Aburto who will follow painful induration, right axilla:Hidadrenitis supprativa? pt has hx of no cellulitis observed pt already on Doxy which can cover skin infection will monitor hx of being on magnesium oxide History of being on iron supplement: currently H&H WNL [place] on left wrist placed on 06/16; area is well healed rajeev are able to be removed I spent minutes with the patient and/or on the patient floor today, greater than?50% of which was spent counseling/coordinating care. Patient educated on: diagnosis, medication risk/benefits, substance abuse and medical condition Informed Consent: understands Reason for contiued inpatient stay Substantial Risk for: rapid decompensation and med/psych decompensation
[2021-07-03] MEDS: Acetaminophen 325 MG TABLET 650 MG PO ×2 (12:49→22:09)
[2021-07-03] MEDS: QUEtiapine Fumarate 50 MG TABLET PO (12:49)
[2021-07-03] MEDS: cloNIDine HCL 0.1 MG TABLET PO ×3 (12:49→19:23)
[2021-07-03] MEDS: cefTRIAXone sodium 500 MG VIAL IM (13:08)
[2021-07-03 14:21] LABS: IDNOW Serial# 08D9AD1C; Strep A Nucleic Acid Positive (Negative)
[2021-07-03 14:56] LABS: Influenza A PCR NEGATIVE (Negative); Influenza B PCR NEGATIVE (Negative); Resp Syncy Virus RNA Qual PCR NEGATIVE (Negative); SARS COV2 PCR INHOUSE NEGATIVE (Negative)
[2021-07-03 16:00] VITALS: PULSE 105
[2021-07-03 18:00] VITALS: BP 119/59; PULSE 102; RESP 16; TEMP 36.4; O2SAT 98
[2021-07-03] MEDS: QUEtiapine Fumarate 100 MG TABLET PO (19:24)
[2021-07-03] MEDS: traZODone HCL 50 MG TABLET PO (22:37)
[2021-07-04] VITALS: PULSE 89
[2021-07-04 06:00] VITALS: BP 122/68; PULSE 86; RESP 16; TEMP 36.1; O2SAT 99
[2021-07-04 08:04] LABS: Syphilis Screen Nonreactive (Nonreactive)
[2021-07-04] MEDS: Famotidine 20 MG TABLET PO (08:12)
[2021-07-04] MEDS: Sertraline HCL 25 MG TABLET 75 MG PO (08:12)
[2021-07-04] MEDS: Gabapentin 300 MG CAPSULE PO (08:13)
[2021-07-04] MEDS: LORazepam 1 MG TABLET PO ×2 (08:13→19:36)
[2021-07-04] MEDS: QUEtiapine Fumarate 50 MG TABLET PO (09:07)
[2021-07-04] MEDS: hydrOXYzine HCL 25 MG TABLET PO ×2 (11:43→16:21)
[2021-07-04] MEDS: Cyclobenzaprine HCl 10 MG TABLET PO (14:19)
[2021-07-04 14:37] LABS: HCV RNA PCR Qn 3990000 IU/mL (NOT DETECTED)
--- NOTE | 2021-07-04 15:38 | HO.PSYCHPN ---
Subjective Subjective Date of Service: 07/04/21 Reason For Visit: anxiety disorder, Cannabis use disorder Subjective Notes: Conditional Voluntary Healthcare Proxy: No Guardianship: No Medical Problems Affecting Mental Status: No Interim History: Reports RLQ pain with bloating- denies constipation, reports lower lumbar pain, also cyst in R axilla node area. Hospitalist consult requested. Antibiotics continue-pt denies hx of adverse responses in the past with their use. Reports mood to be OK really . Expressed concern about Hepatitis C and appropriate treatment along with wanting to be sure the treatment that will be given will take care of the problem. Denies current mood issues, concern today is with medical symptoms. Medication Compliance: Yes Side effects from medications: No Attending Groups: Yes Review of Systems Acute medical concerns: No Medical Review of Systems: unchanged Review of Systems Gastrointestinal: Reports abdominal pain, Reports bloating, Reports excessive flatus and Reports dyspepsia Skin/Breast: Reports furuncle (R axilla) Reports behavioral changes Psychiatric: Reports anxiety, Reports behavioral changes, Reports depression, Reports difficulty concentrating, Reports hopelessness and Reports anhedonia Mental Status Exam Mental Status Exam Patient Appearance: Appropriate Patient Orientation: Person, Place, Time and Situation Level of Consciousness: Awake and Alert Patient Behavior: Appropriate, Talkative, Cooperative and Good Eye Contact Mood Description: Anxious and Apprehensive Affect Description: Anxious Patient Cognition Impaired: No Ability to Follow Directions: Good Speech Pattern: Spontaneous Speech Hallucinations: None Delusions: Not Present Perceptual Disturbances: Depersonalization and Derealization Thought Process: Distracted Thought Content: positive for Circumstantial Depressive Symptoms: Increased Anxiety Judgement: Fair Diagnostics Vital Signs (24Hr): Vital Signs - 24 hr 07/03/21 18:00 07/04/21 06:00 Temperature 97.6 F 97 F Pulse Rate 102 H 86 Respiratory Rate 16 16 Blood Pressure 119/59 L 122/68 Pulse Oximetry 98 99 BMI result Body Mass Index 22.8 Labs Results: 06/30/21 23:59 06/30/21 23:59 Labs: Laboratory Results - last 48 hr 07/02/21 07/02/21 07/02/21 13:30 13:30 17:30 Urine Color YELLOW Urine Appearance HAZY Urine pH 5.5 Ur Specific [place] 1.020 Urine Protein NEG Urine Glucose (UA) NEG Urine Ketones NEG Urine Blood NEG Urine Nitrite NEG Ur Leukocyte Esterase 2+ H Urine RBC 0-2 Urine WBC 10-14 H Urine WBC Clumps NOTED Ur Squamous Epith Cells 2+ Urine Bacteria NONE Urine Mucus TRACE Urine Trichomonas NOTED Urine Test NEGATIVE T.pallidum Ab (EIA) Chlam trachomat DNA PCR DETECTED A Hep Bs Antigen Hep Bs Antibody Hep B Core Total Ab Hepatitis C Ab (EIA) HCV RNA (PCR) IUs/ml HCV RNA PCR log IUs/ml Hepatitis C RNA Comment Hep C Viral Load Hep C Viral Load Log Hepatitis C Genotype HIV 1&2 Ab/P24 Ag 4thGn Influenza Type A (PCR) Influenza Type B (PCR) N.gonorrhoeae DNA (PCR) DETECTED A RSV RNA Qual (PCR) SARS-CoV-2 RNA (RT-PCR) S. pyogenes GrpA SHIREEN 07/02/21 07/03/21 07/03/21 17:48 12:38 12:39 Urine Color Urine Appearance Urine pH Ur Specific [place] Urine Protein Urine Glucose (UA) Urine Ketones Urine Blood Urine Nitrite Ur Leukocyte Esterase Urine RBC Urine WBC Urine WBC Clumps Ur Squamous Epith Cells Urine Bacteria Urine Mucus Urine Trichomonas Urine Test T.pallidum Ab (EIA) Nonreactive Chlam trachomat DNA PCR Hep Bs Antigen Negative Hep Bs Antibody NONREACTIVE Hep B Core Total Ab Nonreactive Hepatitis C Ab (EIA) Reactive H HCV RNA (PCR) IUs/ml [id number] H HCV RNA PCR log IUs/ml 6.60 H Hepatitis C RNA Comment SEE NOTE Hep C Viral Load Cancelled Hep C Viral Load Log Cancelled Hepatitis C Genotype Cancelled HIV 1&2 Ab/P24 Ag 4thGn Nonreactive Influenza Type A (PCR) Influenza Type B (PCR) N.gonorrhoeae DNA (PCR) RSV RNA Qual (PCR) SARS-CoV-2 RNA (RT-PCR) S. pyogenes GrpA SHIREEN 07/03/21 07/03/21 07/03/21 13:26 13:26 14:35 Urine Color Urine Appearance Urine pH Ur Specific [place] Urine Protein Urine Glucose (UA) Urine Ketones Urine Blood Urine Nitrite Ur Leukocyte Esterase Urine RBC Urine WBC Urine WBC Clumps Ur Squamous Epith Cells Urine Bacteria Urine Mucus Urine Trichomonas Urine Test T.pallidum Ab (EIA) Chlam trachomat DNA PCR Cancelled Hep Bs Antigen Hep Bs Antibody Hep B Core Total Ab Hepatitis C Ab (EIA) HCV RNA (PCR) IUs/ml HCV RNA PCR log IUs/ml Hepatitis C RNA Comment Hep C Viral Load Hep C Viral Load Log Hepatitis C Genotype HIV 1&2 Ab/P24 Ag 4thGn Influenza Type A (PCR) NEGATIVE Influenza Type B (PCR) NEGATIVE N.gonorrhoeae DNA (PCR) Cancelled RSV RNA Qual (PCR) NEGATIVE SARS-CoV-2 RNA (RT-PCR) NEGATIVE S. pyogenes GrpA SHIREEN Positive A Medications Medications Current Medications Acetaminophen (Acetaminophen 325 Mg Tablet) 650 mg PO Q6H PRN PRN Reason: Headache/Pain Mild Scale (1-3) Last Admin: 07/03/21 22:09 Dose: 650 mg Documented by: Al Hydroxide/Mg Hydroxide (Magnesium Hydrox/Alum Hydrox 30 Ml Oral.Susp) 30 ml PO Q6H PRN PRN Reason: Heartburn/Nausea Clonidine HCl (Clonidine Hcl 0.1 Mg Tablet) 0.1 mg PO Q4H PRN; Protocol PRN Reason: Anxiety Last Admin: 07/03/21 19:23 Dose: 0.1 mg Documented by: Cyclobenzaprine HCl (Cyclobenzaprine Hcl 10 Mg Tablet) 10 mg PO TID PRN PRN Reason: muscle aches Last Admin: 07/04/21 14:19 Dose: 10 mg Documented by: Doxycycline Hyclate (Doxycycline Hyclate 100 Mg Tablet) 100 mg PO BID [facility] Last Admin: 07/04/21 08:12 Dose: 100 mg Documented by: Famotidine (Famotidine 20 Mg Tablet) 20 mg PO DAILY [facility] Last Admin: 07/04/21 08:12 Dose: 20 mg Documented by: Gabapentin (Gabapentin 300 Mg Capsule) 300 mg PO DAILY [facility] Stop: 07/05/21 23:50 Last Admin: 07/04/21 08:13 Dose: 300 mg Documented by: Hydroxyzine HCl (Hydroxyzine Hcl 25 Mg Tablet) 25 mg PO Q6H PRN PRN Reason: Anxiety Last Admin: 07/04/21 11:43 Dose: 25 mg Documented by: Loperamide HCl (Loperamide Hcl 2 Mg Capsule) 2 mg PO Q6H PRN PRN Reason: diarrhea Last Admin: 06/29/21 14:45 Dose: 2 mg Documented by: Lorazepam (Lorazepam 1 Mg Tablet) 1 mg PO BID [facility] Stop: 07/04/21 21:00 Last Admin: 07/04/21 08:13 Dose: 1 mg Documented by: Lorazepam (Lorazepam 1 Mg Tablet) 1 mg PO DAILY [facility] Stop: 07/06/21 23:00 Magnesium Hydroxide (Milk Of Magnesia 30 Ml Oral.Susp) 30 ml PO DAILY PRN PRN Reason: Constipation Naltrexone HCl (Naltrexone Hcl 50 Mg Tablet) 50 mg PO DAILY [facility] Nicotine (Nicotine 21 Mg Patch.Td24) 21 mg TRANSDERMA DAILY PRN PRN Reason: smoking cessation Nicotine Polacrilex (Nicotine Polacrilex 2 Mg Gum) 4 mg BUCCAL Q2H PRN PRN Reason: Nicotine Cravings Last Admin: 07/01/21 20:20 Dose: 4 mg Documented by: Ondansetron HCl (Ondansetron Odt 8 Mg Tab.Rapdis) 8 mg TRANSLINGU Q8H PRN PRN Reason: nausea Quetiapine Fumarate (Quetiapine Fumarate 100 Mg Tablet) 100 mg PO BEDTIME [facility] Last Admin: 07/03/21 19:24 Dose: 100 mg Documented by: Quetiapine Fumarate (Quetiapine Fumarate 50 Mg Tablet) 50 mg PO TID PRN PRN Reason: anxiety Last Admin: 07/04/21 09:07 Dose: 50 mg Documented by: Sertraline HCl (Sertraline Hcl 25 Mg Tablet) 75 mg PO DAILY [facility] Last Admin: 07/04/21 08:12 Dose: 75 mg Documented by: Trazodone HCl (Trazodone Hcl 50 Mg Tablet) 50 mg PO BEDTIME PRN PRN Reason: Insomnia Last Admin: 07/03/21 22:37 Dose: 50 mg Documented by: Allergies Allergies Allergy/AdvReac Type Severity Reaction Status Date / Time povidone-iodine Allergy Unknown ITCHING Unverified 01/04/20 16:51 [From BETADINE] soap [From BETADINE] Allergy Unknown ITCHING Unverified 01/04/20 16:51 Assessment & Plan Assessment & Plan (1) Depression: Status: Acute Code(s): F32.A - Depression, unspecified (2) Alcohol dependence: Status: Acute Code(s): F10.20 - Alcohol dependence, uncomplicated (3) Cocaine abuse: Status: Acute Code(s): F14.10 - Cocaine abuse, uncomplicated (4) Alcohol withdrawal delirium: Status: Resolved Code(s): F10.231 - Alcohol dependence with withdrawal delirium Assessment and Plan: resolved (5) Chronic post-traumatic stress disorder (PTSD): Status: Chronic Code(s): F43.12 - Post-traumatic stress disorder, chronic Plan Pt is a 53 yo female with hx of PTSD, alcohol, cocaine abuse/dependence, currently in alcohol withdrawal who presents for depression, SI s/p overdose. -limited historian, likely due to discomfort from withdrawal symptoms -some beginning signs of alcohol delirum which resolved with ativan 2mg and gabapentin 300mg -will revisit HPI and hx as pt able to tolerate interview 06/29 Patient has improved some however remains in much discomfort due to withdrawal and still does not want to talk much. Patient has scored mildly With some moderate CIWA scores. Will continue to treat for withdrawal symptoms 06/30 patient doing little better today and able to engage in interview. Patient is depressed though no SI. Continues to struggle through withdrawal. Would like Seroquel restarted and Zoloft restarted and titrated to effective dose, never having been higher than 25 mg. Patient is very sad about her children being in DCF custody. 07/02 mood improved, no SI; less tearful, more social in milue; c/o vaginal discharge so will do lab work 07/03 +hep C, carissa/chlamydia, strep A plan: cv q15mn PTSD/Depression: Seroquel 100mg qhs for insomnia Seroquel 50mg Tid prn for anxiety Zolfot 75mg Polysubstance abuse cocaine/etoh subsequent exposure to opiates: Withdrawal: resolved dc CIWA? completing ativan/gabapentin taper pt says Gabapentin has helped curb cravings in past, but given abuse potential and her talk of dischage, will hold off for now pt agrees to Naltrexone; will start soon, but have waited to avoid any precipitated w/drawal +Gonorrhea +chlamydia: Start on Doxy 100mg BID for 7 days Ceftriaxone 500mg IM one time dose (consulted with both hospitalist and ID Dr. Aburto) Throat cultures carissa/chlamydia pending RPR pending HIV: negative Strep A: Ceftriaxone 500mg IM one time dose (per Dr. Aburto) +Hep C: orderd hep C viral load and genotype consulted ID Dr. Aburto who will follow painful induration, right axilla:Hidadrenitis supprativa? pt has hx of no cellulitis observed pt already on Doxy which can cover skin infection will monitor hx of being on magnesium oxide History of being on iron supplement: currently H&H WNL [place] on left wrist placed on 06/16; area is well healed rajeev are able to be removed 07/04/21 Hospitalist consult for RLQ pain and axillary cyst. Continue current regime. I spent minutes with the patient and/or on the patient floor today, greater than?50% of which was spent counseling/coordinating care. Patient educated on: therapeutic strategies and medical condition Informed Consent: understands Reason for contiued inpatient stay Substantial Risk for: harm to self, inability to function and rapid decompensation
[2021-07-04 16:00] VITALS: PULSE 87
--- NOTE | 2021-07-04 16:12 | P.PNIM_ITS ---
Subjective Subjective Date of Service: 07/05/21 Interval History: Hospitalist service re-consulted for concern of cervical gonorrhea + chlamydia infection, HCV infection, +NAAT for Group A strep, painful cyst in R armpit, and RLQ pain Original consult done 06/28/[address] Landis; please refer to his note for medical H+P Re: STI. Positive NAAT for gonorrhea and chlamydia. Has already been treated with 500 mg of IM ceftriaxone on 07/03 and is on day #2/7 of doxycycline 100 mg bid. Had yellow vaginal discharge on admission, which has resolved. Re: HCV. No prior treatment. Viral load positive. No history of cirrhosis. Re: GAS. Pt denies fever, sore throat, or neck stiffness. No cough and no congestion. Re: R axillary cyst. Painful and red but not draining. Not growing larger. No fever. Re: RLQ pain. 8/10 in intensity at worst but able to eat. No N/V. No diarrhea [had some on admission to but this has resolved]. No hematochezia. Able to walk around without worsening the pain. Hx of ovarian detorsion and bilateral tubal ligation. Review of Systems Review of Systems: Yes all other systems are reviewed and are negative Physical Exam Vital Signs: Vital Signs: Last Vital Signs Temp 97 F 07/04/21 06:00 Pulse 86 07/04/21 06:00 Resp 16 07/04/21 06:00 BP 122/68 07/04/21 06:00 Pulse Ox 99 07/04/21 06:00 BMI result Body Mass Index 22.8 Gen: in no acute distress HEENT: sclera anicteric, moist mucus membranes, no tonsillar erythema or exudate Neck: supple Lungs: clear to auscultation bilaterally Heart: regular rate and rhythm, no murmurs Abd: soft, RLQ tenderness without rebound or guarding, negative obturator sign, negative Rovsing sign, positive psoas sign Ext: no edema Skin: warm/well-perfused, 1 cm erythematous cyst in R axila- indurated but not fluctuant Neuro: alert and oriented x3, no focal findings Psych: appropriate affect Objective Data Active Medications Acetaminophen (Acetaminophen 325 Mg Tablet) 650 mg PO Q6H PRN PRN Reason: Headache/Pain Mild Scale (1-3) Last Admin: 07/03/21 22:09 Dose: 650 mg Documented by: ALYX Al Hydroxide/Mg Hydroxide (Magnesium Hydrox/Alum Hydrox 30 Ml Oral.Susp) 30 ml PO Q6H PRN PRN Reason: Heartburn/Nausea Clonidine HCl (Clonidine Hcl 0.1 Mg Tablet) 0.1 mg PO Q4H PRN; Protocol PRN Reason: Anxiety Last Admin: 07/03/21 19:23 Dose: 0.1 mg Documented by: ALYX Cyclobenzaprine HCl (Cyclobenzaprine Hcl 10 Mg Tablet) 10 mg PO TID PRN PRN Reason: muscle aches Last Admin: 07/04/21 14:19 Dose: 10 mg Documented by: KARLA Doxycycline Hyclate (Doxycycline Hyclate 100 Mg Tablet) 100 mg PO BID [facility] Last Admin: 07/04/21 08:12 Dose: 100 mg Documented by: KARLA Famotidine (Famotidine 20 Mg Tablet) 20 mg PO DAILY [facility] Last Admin: 07/04/21 08:12 Dose: 20 mg Documented by: KARLA Gabapentin (Gabapentin 300 Mg Capsule) 300 mg PO DAILY [facility] Stop: 07/05/21 23:50 Last Admin: 07/04/21 08:13 Dose: 300 mg Documented by: KARLA Hydroxyzine HCl (Hydroxyzine Hcl 25 Mg Tablet) 25 mg PO Q6H PRN PRN Reason: Anxiety Last Admin: 07/04/21 11:43 Dose: 25 mg Documented by: KARLA Loperamide HCl (Loperamide Hcl 2 Mg Capsule) 2 mg PO Q6H PRN PRN Reason: diarrhea Last Admin: 06/29/21 14:45 Dose: 2 mg Documented by: KARLA Lorazepam (Lorazepam 1 Mg Tablet) 1 mg PO BID [facility] Stop: 07/04/21 21:00 Last Admin: 07/04/21 08:13 Dose: 1 mg Documented by: KARLA Lorazepam (Lorazepam 1 Mg Tablet) 1 mg PO DAILY [facility] Stop: 07/06/21 23:00 Magnesium Hydroxide (Milk Of Magnesia 30 Ml Oral.Susp) 30 ml PO DAILY PRN PRN Reason: Constipation Naltrexone HCl (Naltrexone Hcl 50 Mg Tablet) 50 mg PO DAILY [facility] Nicotine (Nicotine 21 Mg Patch.Td24) 21 mg TRANSDERMA DAILY PRN PRN Reason: smoking cessation Nicotine Polacrilex (Nicotine Polacrilex 2 Mg Gum) 4 mg BUCCAL Q2H PRN PRN Reason: Nicotine Cravings Last Admin: 07/01/21 20:20 Dose: 4 mg Documented by: EPIFANIO Ondansetron HCl (Ondansetron Odt 8 Mg Tab.Rapdis) 8 mg TRANSLINGU Q8H PRN PRN Reason: nausea Quetiapine Fumarate (Quetiapine Fumarate 100 Mg Tablet) 100 mg PO BEDTIME [facility] Last Admin: 07/03/21 19:24 Dose: 100 mg Documented by: ALYX Quetiapine Fumarate (Quetiapine Fumarate 50 Mg Tablet) 50 mg PO TID PRN PRN Reason: anxiety Last Admin: 07/04/21 09:07 Dose: 50 mg Documented by: KARLA Sertraline HCl (Sertraline Hcl 25 Mg Tablet) 75 mg PO DAILY [facility] Last Admin: 07/04/21 08:12 Dose: 75 mg Documented by: KARLA Trazodone HCl (Trazodone Hcl 50 Mg Tablet) 50 mg PO BEDTIME PRN PRN Reason: Insomnia Last Admin: 07/03/21 22:37 Dose: 50 mg Documented by: ALYX Labs CBC & Chem 7: 06/30/21 23:59 06/30/21 23:59 Labs: Laboratory Tests 06/28/21 06/28/21 06/30/21 07:21 07:21 23:34 WBC RBC Hgb Hct MCV MCH MCHC RDW Plt Count MPV Immature Gran % (Auto) Neut % (Auto) Lymph % (Auto) [place] % (Auto) Eos % (Auto) Baso % (Auto) Lymph # (Auto) [place] # (Auto) Eos # (Auto) Baso # (Auto) Abs Immat Gran (auto) Absolute Neuts (auto) Absolute Nucleated RBC Nucleated RBC % (auto) Sodium 135 Potassium 4.8 D Chloride 105 Carbon Dioxide 23 Anion Gap 12 BUN 13 Creatinine 0.70 Estim Creat Clear Calc 110.3 Estimated GFR > 60 POC Glucose 92 Random Glucose Fasting Glucose 90 Calcium 9.1 Magnesium 2.0 Total Bilirubin 0.3 AST 46 H ALT 37 H Alkaline Phosphatase 77 D Troponin I High Sens Total Protein 6.5 Albumin 3.5 Vitamin B12 477 Folate 10.8 TSH 0.34 Free T4 0.84 Urine Color Urine Appearance Urine pH Ur Specific [place] Urine Protein Urine Glucose (UA) Urine Ketones Urine Blood Urine Nitrite Ur Leukocyte Esterase Urine RBC Urine WBC Urine WBC Clumps Ur Squamous Epith Cells Urine Bacteria Urine Mucus Urine Trichomonas Urine Test T.pallidum Ab (EIA) Chlam trachomat DNA PCR Hep Bs Antigen Hep Bs Antibody Hep B Core Total Ab Hepatitis C Ab (EIA) HCV RNA (PCR) IUs/ml HCV RNA PCR log IUs/ml Hepatitis C RNA Comment Hep C Viral Load Hep C Viral Load Log Hepatitis C Genotype HIV 1&2 Ab/P24 Ag 4thGn Influenza Type A (PCR) Influenza Type B (PCR) N.gonorrhoeae DNA (PCR) RSV RNA Qual (PCR) SARS-CoV-2 RNA (RT-PCR) S. pyogenes GrpA SHIREEN 06/30/21 06/30/21 06/30/21 23:59 23:59 23:59 WBC 9.9 RBC 4.46 Hgb 12.0 Hct 37.6 MCV 84.3 MCH 26.9 L MCHC 31.9 RDW 18.1 H Plt Count 339 MPV 9.3 L Immature Gran % (Auto) 0.4 Neut % (Auto) 51.3 Lymph % (Auto) 35.7 [place] % (Auto) 10.1 Eos % (Auto) 1.7 Baso % (Auto) 0.8 Lymph # (Auto) 3.5 [place] # (Auto) 1.0 Eos # (Auto) 0.2 Baso # (Auto) 0.1 Abs Immat Gran (auto) 0.04 H Absolute Neuts (auto) 5.1 Absolute Nucleated RBC 0.000 Nucleated RBC % (auto) 0.0 Sodium 139 Potassium 4.6 Chloride 105 Carbon Dioxide 25 Anion Gap 14 BUN 15 Creatinine 0.74 Estim Creat Clear Calc 104.4 Estimated GFR > 60 POC Glucose Random Glucose 99 Fasting Glucose Calcium 9.4 Magnesium Total Bilirubin AST ALT Alkaline Phosphatase Troponin I High Sens < 3.5 Total Protein Albumin Vitamin B12 Folate TSH Free T4 Urine Color Urine Appearance Urine pH Ur Specific [place] Urine Protein Urine Glucose (UA) Urine Ketones Urine Blood Urine Nitrite Ur Leukocyte Esterase Urine RBC Urine WBC Urine WBC Clumps Ur Squamous Epith Cells Urine Bacteria Urine Mucus Urine Trichomonas Urine Test T.pallidum Ab (EIA) Chlam trachomat DNA PCR Hep Bs Antigen Hep Bs Antibody Hep B Core Total Ab Hepatitis C Ab (EIA) HCV RNA (PCR) IUs/ml HCV RNA PCR log IUs/ml Hepatitis C RNA Comment Hep C Viral Load Hep C Viral Load Log Hepatitis C Genotype HIV 1&2 Ab/P24 Ag 4thGn Influenza Type A (PCR) Influenza Type B (PCR) N.gonorrhoeae DNA (PCR) RSV RNA Qual (PCR) SARS-CoV-2 RNA (RT-PCR) S. pyogenes GrpA SHIREEN 07/01/21 07/02/21 07/02/21 03:06 13:30 13:30 WBC RBC Hgb Hct MCV MCH MCHC RDW Plt Count MPV Immature Gran % (Auto) Neut % (Auto) Lymph % (Auto) [place] % (Auto) Eos % (Auto) Baso % (Auto) Lymph # (Auto) [place] # (Auto) Eos # (Auto) Baso # (Auto) Abs Immat Gran (auto) Absolute Neuts (auto) Absolute Nucleated RBC Nucleated RBC % (auto) Sodium Potassium Chloride Carbon Dioxide Anion Gap BUN Creatinine Estim Creat Clear Calc Estimated GFR POC Glucose Random Glucose Fasting Glucose Calcium Magnesium Total Bilirubin AST ALT Alkaline Phosphatase Troponin I High Sens < 3.5 Total Protein Albumin Vitamin B12 Folate TSH Free T4 Urine Color YELLOW Urine Appearance HAZY Urine pH 5.5 Ur Specific [place] 1.020 Urine Protein NEG Urine Glucose (UA) NEG Urine Ketones NEG Urine Blood NEG Urine Nitrite NEG Ur Leukocyte Esterase 2+ H Urine RBC 0-2 Urine WBC 10-14 H Urine WBC Clumps NOTED Ur Squamous Epith Cells 2+ Urine Bacteria NONE Urine Mucus TRACE Urine Trichomonas NOTED Urine Test NEGATIVE T.pallidum Ab (EIA) Chlam trachomat DNA PCR Hep Bs Antigen Hep Bs Antibody Hep B Core Total Ab Hepatitis C Ab (EIA) HCV RNA (PCR) IUs/ml HCV RNA PCR log IUs/ml Hepatitis C RNA Comment Hep C Viral Load Hep C Viral Load Log Hepatitis C Genotype HIV 1&2 Ab/P24 Ag 4thGn Influenza Type A (PCR) Influenza Type B (PCR) N.gonorrhoeae DNA (PCR) RSV RNA Qual (PCR) SARS-CoV-2 RNA (RT-PCR) S. pyogenes GrpA SHIREEN 07/02/21 07/02/21 07/03/21 17:30 17:48 12:38 WBC RBC Hgb Hct MCV MCH MCHC RDW Plt Count MPV Immature Gran % (Auto) Neut % (Auto) Lymph % (Auto) [place] % (Auto) Eos % (Auto) Baso % (Auto) Lymph # (Auto) [place] # (Auto) Eos # (Auto) Baso # (Auto) Abs Immat Gran (auto) Absolute Neuts (auto) Absolute Nucleated RBC Nucleated RBC % (auto) Sodium Potassium Chloride Carbon Dioxide Anion Gap BUN Creatinine Estim Creat Clear Calc Estimated GFR POC Glucose Random Glucose Fasting Glucose Calcium Magnesium Total Bilirubin AST ALT Alkaline Phosphatase Troponin I High Sens Total Protein Albumin Vitamin B12 Folate TSH Free T4 Urine Color Urine Appearance Urine pH Ur Specific [place] Urine Protein Urine Glucose (UA) Urine Ketones Urine Blood Urine Nitrite Ur Leukocyte Esterase Urine RBC Urine WBC Urine WBC Clumps Ur Squamous Epith Cells Urine Bacteria Urine Mucus Urine Trichomonas Urine Test T.pallidum Ab (EIA) Nonreactive Chlam trachomat DNA PCR DETECTED A Hep Bs Antigen Negative Hep Bs Antibody NONREACTIVE Hep B Core Total Ab Nonreactive Hepatitis C Ab (EIA) Reactive H HCV RNA (PCR) IUs/ml HCV RNA PCR log IUs/ml Hepatitis C RNA Comment Hep C Viral Load Hep C Viral Load Log Hepatitis C Genotype HIV 1&2 Ab/P24 Ag 4thGn Nonreactive Influenza Type A (PCR) Influenza Type B (PCR) N.gonorrhoeae DNA (PCR) DETECTED A RSV RNA Qual (PCR) SARS-CoV-2 RNA (RT-PCR) S. pyogenes GrpA SHIREEN 07/03/21 07/03/21 07/03/21 12:39 13:26 13:26 WBC RBC Hgb Hct MCV MCH MCHC RDW Plt Count MPV Immature Gran % (Auto) Neut % (Auto) Lymph % (Auto) [place] % (Auto) Eos % (Auto) Baso % (Auto) Lymph # (Auto) [place] # (Auto) Eos # (Auto) Baso # (Auto) Abs Immat Gran (auto) Absolute Neuts (auto) Absolute Nucleated RBC Nucleated RBC % (auto) Sodium Potassium Chloride Carbon Dioxide Anion Gap BUN Creatinine Estim Creat Clear Calc Estimated GFR POC Glucose Random Glucose Fasting Glucose Calcium Magnesium Total Bilirubin AST ALT Alkaline Phosphatase Troponin I High Sens Total Protein Albumin Vitamin B12 Folate TSH Free T4 Urine Color Urine Appearance Urine pH Ur Specific [place] Urine Protein Urine Glucose (UA) Urine Ketones Urine Blood Urine Nitrite Ur Leukocyte Esterase Urine RBC Urine WBC Urine WBC Clumps Ur Squamous Epith Cells Urine Bacteria Urine Mucus Urine Trichomonas Urine Test T.pallidum Ab (EIA) Chlam trachomat DNA PCR Hep Bs Antigen Hep Bs Antibody Hep B Core Total Ab Hepatitis C Ab (EIA) HCV RNA (PCR) IUs/ml [id number] H HCV RNA PCR log IUs/ml 6.60 H Hepatitis C RNA Comment SEE NOTE Hep C Viral Load Cancelled Hep C Viral Load Log Cancelled Hepatitis C Genotype Cancelled HIV 1&2 Ab/P24 Ag 4thGn Influenza Type A (PCR) NEGATIVE Influenza Type B (PCR) NEGATIVE N.gonorrhoeae DNA (PCR) RSV RNA Qual (PCR) NEGATIVE SARS-CoV-2 RNA (RT-PCR) NEGATIVE S. pyogenes GrpA SHIREEN Positive A 07/03/21 14:35 WBC RBC Hgb Hct MCV MCH MCHC RDW Plt Count MPV Immature Gran % (Auto) Neut % (Auto) Lymph % (Auto) [place] % (Auto) Eos % (Auto) Baso % (Auto) Lymph # (Auto) [place] # (Auto) Eos # (Auto) Baso # (Auto) Abs Immat Gran (auto) Absolute Neuts (auto) Absolute Nucleated RBC Nucleated RBC % (auto) Sodium Potassium Chloride Carbon Dioxide Anion Gap BUN Creatinine Estim Creat Clear Calc Estimated GFR POC Glucose Random Glucose Fasting Glucose Calcium Magnesium Total Bilirubin AST ALT Alkaline Phosphatase Troponin I High Sens Total Protein Albumin Vitamin B12 Folate TSH Free T4 Urine Color Urine Appearance Urine pH Ur Specific [place] Urine Protein Urine Glucose (UA) Urine Ketones Urine Blood Urine Nitrite Ur Leukocyte Esterase Urine RBC Urine WBC Urine WBC Clumps Ur Squamous Epith Cells Urine Bacteria Urine Mucus Urine Trichomonas Urine Test T.pallidum Ab (EIA) Chlam trachomat DNA PCR Cancelled Hep Bs Antigen Hep Bs Antibody Hep B Core Total Ab Hepatitis C Ab (EIA) HCV RNA (PCR) IUs/ml HCV RNA PCR log IUs/ml Hepatitis C RNA Comment Hep C Viral Load Hep C Viral Load Log Hepatitis C Genotype HIV 1&2 Ab/P24 Ag 4thGn Influenza Type A (PCR) Influenza Type B (PCR) N.gonorrhoeae DNA (PCR) Cancelled RSV RNA Qual (PCR) SARS-CoV-2 RNA (RT-PCR) S. pyogenes GrpA SHIREEN Assessment and Plan (1) Hepatitis C: Status: Acute Plan 30yo F admitted to for SI/overdose, EtOH withdrawal. Hospitalist service re-consulted for: # gonococcal and chlamydia cervicitis - s/p appropriate ceftriaxone IM dose for gonorrhea and on appropriate treatment for chlamydia. Throat swabs pending though treatment for pharyngeal and urogenital infection are the same. T pallidum EIA negative, HIV negative, HBsAg negative. However, urine has trichomonads - should have test of reinfection in 3 months # trichomoniasis - will treat with 7 days of metronidazole 500 mg bid # HCV - would refer to GI or ID for OUTPATIENT treatment with DAA regimen such as 8 wk of Mavyret of 12 wk of Epclusa. this is not an inpatient issue. # GAS NAAT+ - likely represents chronic carriage rather than acute infection. # R axillary cyst - warm compresses + mupirocin ointment tid. if worsens, to consider bedside I+D but at this point it is not fluctuant # RLQ pain - will obtain CT A/P CT A/P with contrast shows: Normal appendix. Moderate volume stool throughout the colon suggest constipation. No other acute CT findings to explain right lower quadrant pain.? Will start stool softeners + add prn Miralax Thank you for this consultation. We are signing off the case at this time. Please communicate with us if any new medical questions arise. Quality Stroke Does the patient have a stroke diagnosis?: No VTE Prior VTE?: No VTE Risk Level:: Medical - moderate - high VTE Device Contraindication: N/A - Device Ordered VTE Drug Contraindication: N/A - Med Ordered
--- NOTE | 2021-07-04 16:23 | P.CNID_ITS ---
History of Present Illness Data of Consult Service Date: 07/04/21 Requesting physician: Zia Walker Primary Care Provider: Unknown Physician HPI Reason for consult: right axillary boil, Hepatitis C She presents with alcohol use disorder and withdrawal. She has some anxiety and depressive symptoms but now is feeling better. She has complaints of right axillary swelling and has blood test Hepatitis C Review of Systems Review of Systems: Yes all other systems are reviewed and are negative PMFSH Past Medical History Medical History (Updated 07/04/21 @ 16:27 by Najma Aburto MD) Alcohol withdrawal Boil Chronic post-traumatic stress disorder (PTSD) Cocaine abuse Depression Generalized anxiety disorder Hepatitis C Hx LEEP (loop electrosurgical excision procedure), cervix, Hypertension Ovarian torsion Tobacco abuse Varicose veins of bilateral lower extremities with other complications Surgical History Surgical History (Updated 07/04/21 @ 09:37 by Zia Walker MD) History of tubal ligation Social History Social History Household Members: Family Household Members Other:: Pt lives with her mum Housing: Apartment Do you presently have visiting nurse or other home services: Yes Alcohol intake: unknown Patient Tobacco Use Status: Tobacco use Unknown Tobacco use type: Cigarette Cigarette Packs Per Day: 1 Cigarettes Per Day: 20.0 Years Smoked: 15 Smoked in Last 30 Days: No e-Cigarette/Vaping Use: Currently Using Frequency of e-Cigarette/Vaping Use: daily Patient Interested in Nicotine Replacement: Yes Patient Given Instructions on How to Stop Smoking: Yes Date Education Initiated: 06/27/21 Second Hand Smoke Exposure: No Use of substances other than those prescribed or required for medical reasons: Yes Substance Use Type: Crack/Cocaine, Heroin, Marijuana and Opiates Substance Use Frequency: Daily Last Used Substance: Days (ago) Last Used Substance Other:: Pt states i8 want to out and get high Currently Displaying Signs/Symptoms of Drug Intoxication Withdrawal: No Any prior treatment program specific to substance use: Yes Advance Directives: No Advance Directives Information Provided: No Advance Directives on File: No Do you have thoughts of harming others: None Do you have a plan to hurt others: No Plan Recently lost weight without trying: No Eating poorly because of decreased appetite: No Nutrition Risks: No Nutritional Risk Patient : No : No Poor oral hygiene: No service: No Sexual orientation: Did not discuss Meds Allergies Allergy/AdvReac Type Severity Reaction Status Date / Time povidone-iodine Allergy Unknown ITCHING Unverified 01/04/20 16:51 [From BETADINE] soap [From BETADINE] Allergy Unknown ITCHING Unverified 01/04/20 16:51 Active Medications: Current Medications Acetaminophen (Acetaminophen 325 Mg Tablet) 650 mg PO Q6H PRN PRN Reason: Headache/Pain Mild Scale (1-3) Last Admin: 07/03/21 22:09 Dose: 650 mg Documented by: Al Hydroxide/Mg Hydroxide (Magnesium Hydrox/Alum Hydrox 30 Ml Oral.Susp) 30 ml PO Q6H PRN PRN Reason: Heartburn/Nausea Clonidine HCl (Clonidine Hcl 0.1 Mg Tablet) 0.1 mg PO Q4H PRN; Protocol PRN Reason: Anxiety Last Admin: 07/03/21 19:23 Dose: 0.1 mg Documented by: Cyclobenzaprine HCl (Cyclobenzaprine Hcl 10 Mg Tablet) 10 mg PO TID PRN PRN Reason: muscle aches Last Admin: 07/04/21 14:19 Dose: 10 mg Documented by: Doxycycline Hyclate (Doxycycline Hyclate 100 Mg Tablet) 100 mg PO BID [facility] Last Admin: 07/04/21 08:12 Dose: 100 mg Documented by: Famotidine (Famotidine 20 Mg Tablet) 20 mg PO DAILY [facility] Last Admin: 07/04/21 08:12 Dose: 20 mg Documented by: Gabapentin (Gabapentin 300 Mg Capsule) 300 mg PO DAILY [facility] Stop: 07/05/21 23:50 Last Admin: 07/04/21 08:13 Dose: 300 mg Documented by: Hydroxyzine HCl (Hydroxyzine Hcl 25 Mg Tablet) 25 mg PO Q6H PRN PRN Reason: Anxiety Last Admin: 07/04/21 16:21 Dose: 25 mg Documented by: Loperamide HCl (Loperamide Hcl 2 Mg Capsule) 2 mg PO Q6H PRN PRN Reason: diarrhea Last Admin: 06/29/21 14:45 Dose: 2 mg Documented by: Lorazepam (Lorazepam 1 Mg Tablet) 1 mg PO BID [facility] Stop: 07/04/21 21:00 Last Admin: 07/04/21 08:13 Dose: 1 mg Documented by: Lorazepam (Lorazepam 1 Mg Tablet) 1 mg PO DAILY [facility] Stop: 07/06/21 23:00 Magnesium Hydroxide (Milk Of Magnesia 30 Ml Oral.Susp) 30 ml PO DAILY PRN PRN Reason: Constipation Mupirocin (Mupirocin 2 % Oint 22 Gm Tube) 1 appl TOPICAL TID [facility]; Protocol Naltrexone HCl (Naltrexone Hcl 50 Mg Tablet) 50 mg PO DAILY [facility] Nicotine (Nicotine 21 Mg Patch.Td24) 21 mg TRANSDERMA DAILY PRN PRN Reason: smoking cessation Nicotine Polacrilex (Nicotine Polacrilex 2 Mg Gum) 4 mg BUCCAL Q2H PRN PRN Reason: Nicotine Cravings Last Admin: 07/01/21 20:20 Dose: 4 mg Documented by: Ondansetron HCl (Ondansetron Odt 8 Mg Tab.Rapdis) 8 mg TRANSLINGU Q8H PRN PRN Reason: nausea Quetiapine Fumarate (Quetiapine Fumarate 100 Mg Tablet) 100 mg PO BEDTIME [facility] Last Admin: 07/03/21 19:24 Dose: 100 mg Documented by: Quetiapine Fumarate (Quetiapine Fumarate 50 Mg Tablet) 50 mg PO TID PRN PRN Reason: anxiety Last Admin: 07/04/21 09:07 Dose: 50 mg Documented by: Sertraline HCl (Sertraline Hcl 25 Mg Tablet) 75 mg PO DAILY [facility] Last Admin: 07/04/21 08:12 Dose: 75 mg Documented by: Trazodone HCl (Trazodone Hcl 50 Mg Tablet) 50 mg PO BEDTIME PRN PRN Reason: Insomnia Last Admin: 07/03/21 22:37 Dose: 50 mg Documented by: Physical Exam Vital Signs: Vital Signs: Last Vital Signs Temp 97 F 07/04/21 06:00 Pulse 86 07/04/21 06:00 Resp 16 07/04/21 06:00 BP 122/68 07/04/21 06:00 Pulse Ox 99 07/04/21 06:00 BMI result Body Mass Index 22.8 Const: General: cooperative HENMT: Head: Yes normal to inspection Resp: Effort & Inspection: normal respiratory effort Cardio: Rate: regular rate Rhythm: regular rhythm GI: Inspection: Yes normal to inspection Extrem: Other: right axillary swelling,one cm boil area shows me scar left hip area previous drained boil Results Labs CBC & Chem 7: 06/30/21 23:59 06/30/21 23:59 Microbiology Microbiology Results: Microbiology 07/02/21 Unknown Urine clean catch - Urine castro top Urine Culture - Final No growth. Assessment and Plan (1) Alcohol withdrawal delirium: Status: Resolved (2) Boil: Status: Acute Possible MRSA Agree with Doxycycline and topical mupirocin wash If increases in size Surgery can drain (3) Hepatitis C: Status: Acute await final Hepatitis C results will treat in office if indicated
[2021-07-04 18:00] VITALS: BP 109/78; PULSE 67; RESP 16; TEMP 36.4; O2SAT 98
[2021-07-04] MEDS: QUEtiapine Fumarate 100 MG TABLET PO (19:36)
[2021-07-04] MEDS: iohexoL 350 MG/ML 100 ML INFUS..BTL IV (20:17)
[2021-07-04] MEDS: Mupirocin 2 % Oint 22 GM TUBE 1 APPL TOPICAL (20:27)
[2021-07-04] MEDS: metroNIDAZOLE 500 MG TABLET PO (21:37)
[2021-07-04] MEDS: traZODone HCL 50 MG TABLET PO (22:11)
--- NOTE | 2021-07-04 23:21 | PC.NURSE ---
Pt is alert and oriented X4, VSS, Pt was taken down for CT scan with contrast dye. Scan successful, IV line DC'd.
[2021-07-05 06:26] LABS: C. Trachomatis RNA TMA, Throat DETECTED (NOT DETECTED); N. gonorrhoeae RNA TMA, Throat DETECTED (NOT DETECTED)
[2021-07-05] MEDS: metroNIDAZOLE 500 MG TABLET PO ×2 (06:31→18:00)
[2021-07-05] MEDS: Famotidine 20 MG TABLET PO (08:22)
[2021-07-05] MEDS: Naltrexone HCl 50 MG TABLET PO (08:22)
[2021-07-05] MEDS: Sennosides/Docusate Sodium TABLET 1 TAB PO ×2 (08:22→20:33)
[2021-07-05] MEDS: Sertraline HCL 25 MG TABLET 75 MG PO (08:22)
[2021-07-05] MEDS: Gabapentin 300 MG CAPSULE PO (08:22)
[2021-07-05] MEDS: QUEtiapine Fumarate 50 MG TABLET PO ×3 (08:22→18:00)
[2021-07-05] MEDS: LORazepam 1 MG TABLET PO (08:22)
[2021-07-05 08:25] VITALS: BP 126/69; PULSE 93; RESP 17; TEMP 36.8; O2SAT 96
--- NOTE | 2021-07-05 08:32 | HO.PSYCHPN ---
Subjective Subjective Date of Service: 07/05/21 Reason For Visit: anxiety disorder, Cannabis use disorder Subjective Notes: Conditional Voluntary and 3 Day Interim History: Patient was seen and discussed in rounds today. Records and plans were reviewed. She does have a 3 day notice an. She continues to have bloating and did have an abdominal CT scan yesterday with no major findings other than some fecal matter band she denies any constipation. She has been visible, social, attending groups. Some anxiety and depression present and also has some racing thoughts. No SI. She has not been showing any signs of withdrawals in both alcohol and opiate protocols were discontinued. Eating and sleeping adequately. No other changes were made Medication Compliance: Yes Side effects from medications: No Review of Systems Review of Systems Except for abdominal bloating Yes all other systems are reviewed and are negative Mental Status Exam Mental Status Exam Patient Appearance: Appropriate Patient Orientation: Person, Place, Time and Situation Level of Consciousness: Awake and Alert Patient Behavior: Appropriate, Talkative, Cooperative and Good Eye Contact Mood Description: Anxious and Apprehensive Affect Description: Anxious Patient Cognition Impaired: No Ability to Follow Directions: Good Speech Pattern: Spontaneous Speech Hallucinations: None Delusions: Not Present Perceptual Disturbances: Depersonalization and Derealization Thought Process: Distracted Thought Content: positive for Circumstantial Depressive Symptoms: Increased Anxiety Judgement: Fair Diagnostics Vital Signs (24Hr): Vital Signs - 24 hr 07/04/21 18:00 07/05/21 08:25 Temperature 97.6 F 98.3 F Pulse Rate 67 93 Respiratory Rate 16 17 Blood Pressure 109/78 126/69 Pulse Oximetry 98 96 BMI result Body Mass Index 22.8 Labs Results: 06/30/21 23:59 06/30/21 23:59 Labs: Laboratory Results - last 48 hr 07/03/21 07/03/21 07/03/21 12:38 12:39 13:26 Throat C trach RNA TMA Throat N gonorr RNA TMA T.pallidum Ab (EIA) Nonreactive Chlam trachomat DNA PCR HCV RNA (PCR) IUs/ml [id number] H HCV RNA PCR log IUs/ml 6.60 H Hepatitis C RNA Comment SEE NOTE Hep C Viral Load Cancelled Hep C Viral Load Log Cancelled Hepatitis C Genotype Cancelled Influenza Type A (PCR) NEGATIVE Influenza Type B (PCR) NEGATIVE N.gonorrhoeae DNA (PCR) RSV RNA Qual (PCR) NEGATIVE SARS-CoV-2 RNA (RT-PCR) NEGATIVE S. pyogenes GrpA SHIREEN 07/03/21 07/03/21 07/03/21 13:26 13:26 14:35 Throat C trach RNA TMA DETECTED A Throat N gonorr RNA TMA DETECTED A T.pallidum Ab (EIA) Chlam trachomat DNA PCR Cancelled HCV RNA (PCR) IUs/ml HCV RNA PCR log IUs/ml Hepatitis C RNA Comment Hep C Viral Load Hep C Viral Load Log Hepatitis C Genotype Influenza Type A (PCR) Influenza Type B (PCR) N.gonorrhoeae DNA (PCR) Cancelled RSV RNA Qual (PCR) SARS-CoV-2 RNA (RT-PCR) S. pyogenes GrpA SHIREEN Positive A Imaging Radiology Impressions: ITS Impressions Abdomen/Pelvis CT 07/04/21 20:20 IMPRESSION: Normal appendix. Moderate volume stool throughout the colon suggest constipation. No other acute CT findings to explain right lower quadrant pain. Fleischner guidelines were followed. Medications Medications Current Medications Acetaminophen (Acetaminophen 325 Mg Tablet) 650 mg PO Q6H PRN PRN Reason: Headache/Pain Mild Scale (1-3) Last Admin: 07/03/21 22:09 Dose: 650 mg Documented by: Al Hydroxide/Mg Hydroxide (Magnesium Hydrox/Alum Hydrox 30 Ml Oral.Susp) 30 ml PO Q6H PRN PRN Reason: Heartburn/Nausea Clonidine HCl (Clonidine Hcl 0.1 Mg Tablet) 0.1 mg PO Q4H PRN; Protocol PRN Reason: Anxiety Last Admin: 07/03/21 19:23 Dose: 0.1 mg Documented by: Cyclobenzaprine HCl (Cyclobenzaprine Hcl 10 Mg Tablet) 10 mg PO TID PRN PRN Reason: muscle aches Last Admin: 07/04/21 14:19 Dose: 10 mg Documented by: Doxycycline Hyclate (Doxycycline Hyclate 100 Mg Tablet) 100 mg PO BID [facility] Last Admin: 07/05/21 08:22 Dose: 100 mg Documented by: Famotidine (Famotidine 20 Mg Tablet) 20 mg PO DAILY [facility] Last Admin: 07/05/21 08:22 Dose: 20 mg Documented by: Gabapentin (Gabapentin 300 Mg Capsule) 300 mg PO DAILY [facility] Stop: 07/05/21 23:50 Last Admin: 07/05/21 08:22 Dose: 300 mg Documented by: Hydroxyzine HCl (Hydroxyzine Hcl 25 Mg Tablet) 25 mg PO Q6H PRN PRN Reason: Anxiety Last Admin: 07/04/21 16:21 Dose: 25 mg Documented by: Loperamide HCl (Loperamide Hcl 2 Mg Capsule) 2 mg PO Q6H PRN PRN Reason: diarrhea Last Admin: 06/29/21 14:45 Dose: 2 mg Documented by: Lorazepam (Lorazepam 1 Mg Tablet) 1 mg PO DAILY [facility] Stop: 07/06/21 23:00 Last Admin: 07/05/21 08:22 Dose: 1 mg Documented by: Magnesium Hydroxide (Milk Of Magnesia 30 Ml Oral.Susp) 30 ml PO DAILY PRN PRN Reason: Constipation Metronidazole (Metronidazole 500 Mg Tablet) 500 mg PO Q12H [facility] Stop: 07/11/21 06:01 Last Admin: 07/05/21 06:31 Dose: 500 mg Documented by: Mupirocin (Mupirocin 2 % Oint 22 Gm Tube) 1 appl TOPICAL TID [facility]; Protocol Last Admin: 07/04/21 20:27 Dose: 1 appl Documented by: Naltrexone HCl (Naltrexone Hcl 50 Mg Tablet) 50 mg PO DAILY [facility] Last Admin: 07/05/21 08:22 Dose: 50 mg Documented by: Nicotine (Nicotine 21 Mg Patch.Td24) 21 mg TRANSDERMA DAILY PRN PRN Reason: smoking cessation Nicotine Polacrilex (Nicotine Polacrilex 2 Mg Gum) 4 mg BUCCAL Q2H PRN PRN Reason: Nicotine Cravings Last Admin: 07/01/21 20:20 Dose: 4 mg Documented by: Ondansetron HCl (Ondansetron Odt 8 Mg Tab.Rapdis) 8 mg TRANSLINGU Q8H PRN PRN Reason: nausea Polyethylene Glycol (Polyethylene Glycol 3350 17 Gm Powd.Pack) 17 gm PO DAILY PRN PRN Reason: constipation Quetiapine Fumarate (Quetiapine Fumarate 100 Mg Tablet) 100 mg PO BEDTIME [facility] Last Admin: 07/04/21 19:36 Dose: 100 mg Documented by: Quetiapine Fumarate (Quetiapine Fumarate 50 Mg Tablet) 50 mg PO TID PRN PRN Reason: anxiety Last Admin: 07/05/21 08:22 Dose: 50 mg Documented by: Senna/Docusate Sodium (Sennosides/Docusate Sodium Tablet) 1 tab PO BID [facility] Last Admin: 07/05/21 08:22 Dose: 1 tab Documented by: Sertraline HCl (Sertraline Hcl 25 Mg Tablet) 75 mg PO DAILY [facility] Last Admin: 07/05/21 08:22 Dose: 75 mg Documented by: Trazodone HCl (Trazodone Hcl 50 Mg Tablet) 50 mg PO BEDTIME PRN PRN Reason: Insomnia Last Admin: 07/04/21 22:11 Dose: 50 mg Documented by: Allergies Allergies Allergy/AdvReac Type Severity Reaction Status Date / Time povidone-iodine Allergy Unknown ITCHING Unverified 01/04/20 16:51 [From BETADINE] soap [From BETADINE] Allergy Unknown ITCHING Unverified 01/04/20 16:51 Assessment & Plan Assessment & Plan (1) Hepatitis C: Status: Acute Code(s): B19.20 - Unspecified viral hepatitis C without hepatic coma Plan 30yo F admitted to for SI/overdose, EtOH withdrawal. Hospitalist service re-consulted for: # gonococcal and chlamydia cervicitis - s/p appropriate ceftriaxone IM dose for gonorrhea and on appropriate treatment for chlamydia. Throat swabs pending though treatment for pharyngeal and urogenital infection are the same. T pallidum EIA negative, HIV negative, HBsAg negative. However, urine has trichomonads - should have test of reinfection in 3 months # trichomoniasis - will treat with 7 days of metronidazole 500 mg bid # HCV - would refer to GI or ID for OUTPATIENT treatment with DAA regimen such as 8 wk of Mavyret of 12 wk of Epclusa. this is not an inpatient issue. # GAS NAAT+ - likely represents chronic carriage rather than acute infection. # R axillary cyst - warm compresses + mupirocin ointment tid. if worsens, to consider bedside I+D but at this point it is not fluctuant # RLQ pain - will obtain CT A/P CT A/P with contrast shows: Normal appendix. Moderate volume stool throughout the colon suggest constipation. No other acute CT findings to explain right lower quadrant pain.? Will start stool softeners + add prn Miralax Thank you for this consultation. We are signing off the case at this time. Please communicate with us if any new medical questions arise. 07/05/2021: Continue current regimen and plans with no changes today I spent minutes with the patient and/or on the patient floor today, greater than?50% of which was spent counseling/coordinating care. Guardian/Caregiver educated on: medical condition Reason for contiued inpatient stay Substantial Risk for: other
[2021-07-05] MEDS: hydrOXYzine HCL 25 MG TABLET PO ×2 (12:54→18:48)
[2021-07-05] MEDS: Mupirocin 2 % Oint 22 GM TUBE 1 APPL TOPICAL ×2 (14:33→20:42)
[2021-07-05] MEDS: Cyclobenzaprine HCl 10 MG TABLET PO (14:57)
[2021-07-05 15:03] VITALS: BP 140/88; PULSE 99
[2021-07-05] MEDS: cloNIDine HCL 0.1 MG TABLET PO (15:03)
[2021-07-05 17:49] VITALS: BP 122/82; PULSE 90; RESP 16; TEMP 36.6; O2SAT 100
[2021-07-05] MEDS: Nicotine Polacrilex 2 MG GUM 4 MG BUCCAL (18:39)
[2021-07-05] MEDS: QUEtiapine Fumarate 100 MG TABLET PO (20:33)
[2021-07-05] MEDS: traZODone HCL 50 MG TABLET PO (20:42)
[2021-07-06] MEDS: cloNIDine HCL 0.1 MG TABLET PO ×2 (01:00→13:05)
[2021-07-06 06:00] VITALS: BP 118/78; PULSE 97; RESP 18; TEMP 36.6; O2SAT 99
[2021-07-06] MEDS: metroNIDAZOLE 500 MG TABLET PO ×2 (06:05→19:08)
--- NOTE | 2021-07-06 06:10 | PC.NURSE ---
on 07/06/21 6am Allergy warning for metronidazole call to pharmacy spoke with Omid said it would be ok to give med only risk was rash. Med was given this is her 4th dose with no allergy symptoms.
[2021-07-06 07:49] LABS: Alanine Aminotransferase 101 U/L (0-31); Albumin Level 3.8 g/dL (3.5-5.0); Alkaline Phosphatase 124 U/L (39-117); Aspartate Amino Transferase 90 U/L (5-31); Bilirubin Direct 0.2 mg/dL (0.0-0.5); Bilirubin Total 0.5 mg/dL (0.0-1.0)
--- NOTE | 2021-07-06 08:10 | P.PNPSI_ITS ---
Subjective Subjective Date of Service: 07/06/21 Reason For Visit: anxiety disorder, Cannabis use disorder Subjective Notes: Conditional Voluntary Healthcare Proxy: No Guardianship: No Medical Problems Affecting Mental Status: Yes (Abdominal bloating) Interim History: Patient was seen and discussed in rounds today.? Records and plans were reviewed.? She does have a 3 day notice an.? She not complaining as much about her abdominal bloating. She appears to be brighter with less anxiety and depression but still present. She is concerned about being homeless. She is social and visible. No SI. No hallucinations. Liver function tests have been ordered for today. No side effects and she is compliant with current regimen. No changes were made today Medication Compliance: Yes Side effects from medications: No Review of Systems Review of Systems Except for abdominal bloating Yes all other systems are reviewed and are negative Mental Status Exam Mental Status Exam Patient Appearance: Appropriate Patient Orientation: Person, Place, Time and Situation Level of Consciousness: Awake and Alert Patient Behavior: Appropriate, Talkative, Cooperative and Good Eye Contact Mood Description: Anxious and Apprehensive Affect Description: Anxious Patient Cognition Impaired: No Ability to Follow Directions: Good Speech Pattern: Spontaneous Speech Hallucinations: None Delusions: Not Present Perceptual Disturbances: Depersonalization and Derealization Thought Process: Distracted Thought Content: positive for Circumstantial Depressive Symptoms: Increased Anxiety Judgement: Fair Diagnostics Vital Signs (24Hr): Vital Signs - 24 hr 07/05/21 08:25 07/05/21 15:03 07/05/21 17:49 Temperature 98.3 F 97.9 F Pulse Rate 93 99 90 Respiratory Rate 17 16 Blood Pressure 126/69 140/88 H 122/82 Pulse Oximetry 96 100 07/06/21 06:00 Temperature 97.9 F Pulse Rate 97 Respiratory Rate 18 Blood Pressure 118/78 Pulse Oximetry 99 BMI result Body Mass Index 22.8 Labs Results: 06/30/21 23:59 06/30/21 23:59 Labs: Laboratory Results - last 48 hr 07/03/21 07/03/21 07/06/21 12:39 13:26 07:25 Total Bilirubin 0.5 Direct Bilirubin 0.2 AST 90 H ALT 101 H Alkaline Phosphatase 124 H D Total Protein 7.0 Albumin 3.8 Throat C trach RNA TMA DETECTED A Throat N gonorr RNA TMA DETECTED A HCV RNA (PCR) IUs/ml [id number] H HCV RNA PCR log IUs/ml 6.60 H Hepatitis C RNA Comment SEE NOTE Imaging Radiology Impressions: ITS Impressions Abdomen/Pelvis CT 07/04/21 20:20 IMPRESSION: Normal appendix. Moderate volume stool throughout the colon suggest constipation. No other acute CT findings to explain right lower quadrant pain. Fleischner guidelines were followed. Medications Medications Current Medications Acetaminophen (Acetaminophen 325 Mg Tablet) 650 mg PO Q6H PRN PRN Reason: Headache/Pain Mild Scale (1-3) Last Admin: 07/03/21 22:09 Dose: 650 mg Documented by: Al Hydroxide/Mg Hydroxide (Magnesium Hydrox/Alum Hydrox 30 Ml Oral.Susp) 30 ml PO Q6H PRN PRN Reason: Heartburn/Nausea Clonidine HCl (Clonidine Hcl 0.1 Mg Tablet) 0.1 mg PO Q4H PRN; Protocol PRN Reason: Anxiety Last Admin: 07/05/21 15:03 Dose: 0.1 mg Documented by: Cyclobenzaprine HCl (Cyclobenzaprine Hcl 10 Mg Tablet) 10 mg PO TID PRN PRN Reason: muscle aches Last Admin: 07/05/21 14:57 Dose: 10 mg Documented by: Doxycycline Hyclate (Doxycycline Hyclate 100 Mg Tablet) 100 mg PO BID [facility] Last Admin: 07/05/21 20:33 Dose: 100 mg Documented by: Famotidine (Famotidine 20 Mg Tablet) 20 mg PO DAILY [facility] Last Admin: 07/05/21 08:22 Dose: 20 mg Documented by: Hydroxyzine HCl (Hydroxyzine Hcl 25 Mg Tablet) 25 mg PO Q6H PRN PRN Reason: Anxiety Last Admin: 07/05/21 18:48 Dose: 25 mg Documented by: Loperamide HCl (Loperamide Hcl 2 Mg Capsule) 2 mg PO Q6H PRN PRN Reason: diarrhea Last Admin: 06/29/21 14:45 Dose: 2 mg Documented by: Lorazepam (Lorazepam 1 Mg Tablet) 1 mg PO DAILY [facility] Stop: 07/06/21 23:00 Last Admin: 07/05/21 08:22 Dose: 1 mg Documented by: Magnesium Hydroxide (Milk Of Magnesia 30 Ml Oral.Susp) 30 ml PO DAILY PRN PRN Reason: Constipation Metronidazole (Metronidazole 500 Mg Tablet) 500 mg PO Q12H [facility] Stop: 07/11/21 06:01 Last Admin: 07/06/21 06:05 Dose: 500 mg Documented by: Mupirocin (Mupirocin 2 % Oint 22 Gm Tube) 1 appl TOPICAL TID [facility]; Protocol Last Admin: 07/05/21 20:42 Dose: 1 appl Documented by: Naltrexone HCl (Naltrexone Hcl 50 Mg Tablet) 50 mg PO DAILY [facility] Last Admin: 07/05/21 08:22 Dose: 50 mg Documented by: Nicotine (Nicotine 21 Mg Patch.Td24) 21 mg TRANSDERMA DAILY PRN PRN Reason: smoking cessation Nicotine Polacrilex (Nicotine Polacrilex 2 Mg Gum) 4 mg BUCCAL Q2H PRN PRN Reason: Nicotine Cravings Last Admin: 07/05/21 18:39 Dose: 4 mg Documented by: Ondansetron HCl (Ondansetron Odt 8 Mg Tab.Rapdis) 8 mg TRANSLINGU Q8H PRN PRN Reason: nausea Polyethylene Glycol (Polyethylene Glycol 3350 17 Gm Powd.Pack) 17 gm PO DAILY PRN PRN Reason: constipation Quetiapine Fumarate (Quetiapine Fumarate 100 Mg Tablet) 100 mg PO BEDTIME [facility] Last Admin: 07/05/21 20:33 Dose: 100 mg Documented by: Quetiapine Fumarate (Quetiapine Fumarate 50 Mg Tablet) 50 mg PO TID PRN PRN Reason: anxiety Last Admin: 07/05/21 18:00 Dose: 50 mg Documented by: Senna/Docusate Sodium (Sennosides/Docusate Sodium Tablet) 1 tab PO BID [facility] Last Admin: 07/05/21 20:33 Dose: 1 tab Documented by: Sertraline HCl (Sertraline Hcl 25 Mg Tablet) 75 mg PO DAILY [facility] Last Admin: 07/05/21 08:22 Dose: 75 mg Documented by: Trazodone HCl (Trazodone Hcl 50 Mg Tablet) 50 mg PO BEDTIME PRN PRN Reason: Insomnia Last Admin: 07/05/21 20:42 Dose: 50 mg Documented by: Allergies Allergies Allergy/AdvReac Type Severity Reaction Status Date / Time povidone-iodine Allergy Intermediate ITCHING Verified 07/05/21 18:43 [From BETADINE] soap [From BETADINE] Allergy Intermediate ITCHING Verified 07/05/21 18:43 Assessment & Plan Assessment & Plan (1) Hepatitis C: Status: Acute Code(s): B19.20 - Unspecified viral hepatitis C without hepatic coma Plan 30yo F admitted to [facility] for SI/overdose, EtOH withdrawal. Hospitalist service re-consulted for: # gonococcal and chlamydia cervicitis - s/p appropriate ceftriaxone IM dose for gonorrhea and on appropriate treatment for chlamydia. Throat swabs pending though treatment for pharyngeal and urogenital infection are the same. T pallidum EIA negative, HIV negative, HBsAg negative. However, urine has trichomonads - should have test of reinfection in 3 months # trichomoniasis - will treat with 7 days of metronidazole 500 mg bid # HCV - would refer to GI or ID for OUTPATIENT treatment with DAA regimen such as 8 wk of Mavyret of 12 wk of Epclusa. this is not an inpatient issue. # GAS NAAT+ - likely represents chronic carriage rather than acute infection. # R axillary cyst - warm compresses + mupirocin ointment tid. if worsens, to consider bedside I+D but at this point it is not fluctuant # RLQ pain - will obtain CT A/P CT A/P with contrast shows: Normal appendix. Moderate volume stool throughout the colon suggest constipation. No other acute CT findings to explain right lower quadrant pain.? Will start stool softeners + add prn Miralax Thank you for this consultation. We are signing off the case at this time. Please communicate with us if any new medical questions arise. 07/05/2021: Continue current regimen and plans with no changes today 07/06/2021: Continue current regimen and plans I spent minutes with the patient and/or on the patient floor today, greater than?50% of which was spent counseling/coordinating care. Reason for contiued inpatient stay Substantial Risk for: other
[2021-07-06] MEDS: Sennosides/Docusate Sodium TABLET 1 TAB PO ×2 (09:22→20:32)
[2021-07-06] MEDS: Naltrexone HCl 50 MG TABLET PO (09:22)
[2021-07-06] MEDS: QUEtiapine Fumarate 50 MG TABLET PO ×2 (09:22→19:08)
[2021-07-06] MEDS: LORazepam 1 MG TABLET PO (09:22)
[2021-07-06] MEDS: Famotidine 20 MG TABLET PO (09:22)
[2021-07-06] MEDS: Sertraline HCL 25 MG TABLET 75 MG PO (09:22)
[2021-07-06] MEDS: Mupirocin 2 % Oint 22 GM TUBE 1 APPL TOPICAL ×2 (10:27→20:33)
[2021-07-06] MEDS: hydrOXYzine HCL 25 MG TABLET PO ×2 (13:05→19:08)
[2021-07-06 13:08] VITALS: BP 132/80; PULSE 84; RESP 17
[2021-07-06 20:10] VITALS: BP 138/85; PULSE 100; TEMP 36.4
[2021-07-06] MEDS: QUEtiapine Fumarate 100 MG TABLET PO (20:32)
[2021-07-06] MEDS: traZODone HCL 50 MG TABLET PO (21:20)
[2021-07-07] MEDS: hydrOXYzine HCL 25 MG TABLET PO (03:06)
[2021-07-07] MEDS: cloNIDine HCL 0.1 MG TABLET PO ×3 (03:06→21:07)
[2021-07-07 06:00] VITALS: BP 128/78; PULSE 95; RESP 18; TEMP 36.4; O2SAT 100
[2021-07-07] MEDS: metroNIDAZOLE 500 MG TABLET PO ×2 (06:49→19:07)
[2021-07-07] MEDS: Famotidine 20 MG TABLET PO (08:32)
[2021-07-07] MEDS: Sertraline HCL 25 MG TABLET 75 MG PO (08:32)
[2021-07-07] MEDS: Naltrexone HCl 50 MG TABLET PO (08:32)
[2021-07-07] MEDS: Sennosides/Docusate Sodium TABLET 1 TAB PO ×2 (08:32→21:07)
[2021-07-07] MEDS: Mupirocin 2 % Oint 22 GM TUBE 1 APPL TOPICAL ×2 (08:38→21:05)
[2021-07-07] MEDS: QUEtiapine Fumarate 50 MG TABLET PO ×2 (13:02→19:13)
--- NOTE | 2021-07-07 15:35 | P.PNPSI_ITS ---
Subjective Subjective Date of Service: 07/07/21 Reason For Visit: anxiety disorder, Cannabis use disorder Interim History: mood is ok but better. Denies any SI. c/o of nightmares and agrees to Prazosin. Discussed lab results and pt tolerating antibiotics; disappointed cant be on naltrexone for help w/ cravings however, says she took suboxone in the past which helped her resists substance abuse. 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 Pt plans to dc Wed and live with her cousin. Mental Status Exam Mental Status Exam Narrative: Patient Appearance:?Appropriate Patient Orientation:?Person, Place, Time and Situation Level of Consciousness:?Awake and Alert Patient Behavior:?Appropriate, Talkative, Cooperative and Good Eye Contact Mood Description:? ok Affect Description:?calm, friendly Patient Cognition Impaired:?No Ability to Follow Directions:?Good Speech Pattern:?Spontaneous Speech Hallucinations:?None Delusions:?Not Present Perceptual Disturbances:?none Thought Process:?goal oriented, logical Thought Content:?WNL; denies SI/HI Judgment/insinght:?Fair Diagnostics Vital Signs (24Hr): Vital Signs - 24 hr 07/06/21 20:10 07/07/21 06:00 Temperature 97.5 F 97.6 F Pulse Rate 100 95 Respiratory Rate 18 Blood Pressure 138/85 128/78 Pulse Oximetry 100 BMI result Body Mass Index 22.8 Labs Results: 06/30/21 23:59 06/30/21 23:59 Labs: Laboratory Results - last 48 hr 07/06/21 07:25 Total Bilirubin 0.5 Direct Bilirubin 0.2 AST 90 H ALT 101 H Alkaline Phosphatase 124 H D Total Protein 7.0 Albumin 3.8 Imaging Radiology Impressions: ITS Impressions Abdomen/Pelvis CT 07/04/21 20:20 IMPRESSION: Normal appendix. Moderate volume stool throughout the colon suggest constipation. No other acute CT findings to explain right lower quadrant pain. Fleischner guidelines were followed. Medications Medications Current Medications Acetaminophen (Acetaminophen 325 Mg Tablet) 650 mg PO Q6H PRN PRN Reason: Headache/Pain Mild Scale (1-3) Last Admin: 07/03/21 22:09 Dose: 650 mg Documented by: Al Hydroxide/Mg Hydroxide (Magnesium Hydrox/Alum Hydrox 30 Ml Oral.Susp) 30 ml PO Q6H PRN PRN Reason: Heartburn/Nausea Buprenorphine/Naloxone (Buprenorphine/Naloxone 4/1 Mg Film) 1 film SUBLINGUAL ONCE ONE Stop: 07/07/21 15:32 Clonidine HCl (Clonidine Hcl 0.1 Mg Tablet) 0.1 mg PO Q4H PRN; Protocol PRN Reason: Anxiety Last Admin: 07/07/21 03:06 Dose: 0.1 mg Documented by: Cyclobenzaprine HCl (Cyclobenzaprine Hcl 10 Mg Tablet) 10 mg PO TID PRN PRN Reason: muscle aches Last Admin: 07/05/21 14:57 Dose: 10 mg Documented by: Doxycycline Hyclate (Doxycycline Hyclate 100 Mg Tablet) 100 mg PO BID [facility] Last Admin: 07/07/21 08:32 Dose: 100 mg Documented by: Famotidine (Famotidine 20 Mg Tablet) 20 mg PO DAILY [facility] Last Admin: 07/07/21 08:32 Dose: 20 mg Documented by: Hydroxyzine HCl (Hydroxyzine Hcl 25 Mg Tablet) 25 mg PO Q6H PRN PRN Reason: Anxiety Last Admin: 07/07/21 03:06 Dose: 25 mg Documented by: Loperamide HCl (Loperamide Hcl 2 Mg Capsule) 2 mg PO Q6H PRN PRN Reason: diarrhea Last Admin: 06/29/21 14:45 Dose: 2 mg Documented by: Magnesium Hydroxide (Milk Of Magnesia 30 Ml Oral.Susp) 30 ml PO DAILY PRN PRN Reason: Constipation Metronidazole (Metronidazole 500 Mg Tablet) 500 mg PO Q12H [facility] Stop: 07/11/21 06:01 Last Admin: 07/07/21 06:49 Dose: 500 mg Documented by: Mupirocin (Mupirocin 2 % Oint 22 Gm Tube) 1 appl TOPICAL TID [facility]; Protocol Last Admin: 07/07/21 14:19 Dose: Not Given Documented by: Nicotine (Nicotine 21 Mg Patch.Td24) 21 mg TRANSDERMA DAILY PRN PRN Reason: smoking cessation Nicotine Polacrilex (Nicotine Polacrilex 2 Mg Gum) 4 mg BUCCAL Q2H PRN PRN Reason: Nicotine Cravings Last Admin: 07/05/21 18:39 Dose: 4 mg Documented by: Ondansetron HCl (Ondansetron Odt 8 Mg Tab.Rapdis) 8 mg TRANSLINGU Q8H PRN PRN Reason: nausea Polyethylene Glycol (Polyethylene Glycol 3350 17 Gm Powd.Pack) 17 gm PO DAILY PRN PRN Reason: constipation Prazosin HCl (Prazosin Hcl 1 Mg Capsule) 1 mg PO BEDTIME [facility]; Protocol Quetiapine Fumarate (Quetiapine Fumarate 100 Mg Tablet) 100 mg PO BEDTIME [facility] Last Admin: 07/06/21 20:32 Dose: 100 mg Documented by: Quetiapine Fumarate (Quetiapine Fumarate 50 Mg Tablet) 50 mg PO TID PRN PRN Reason: anxiety Last Admin: 07/07/21 13:02 Dose: 50 mg Documented by: Senna/Docusate Sodium (Sennosides/Docusate Sodium Tablet) 1 tab PO BID [facility] Last Admin: 07/07/21 08:32 Dose: 1 tab Documented by: Sertraline HCl (Sertraline Hcl 100 Mg Tablet) 100 mg PO DAILY [facility] Trazodone HCl (Trazodone Hcl 50 Mg Tablet) 50 mg PO BEDTIME PRN PRN Reason: Insomnia Last Admin: 07/06/21 21:20 Dose: 50 mg Documented by: Allergies Allergies Allergy/AdvReac Type Severity Reaction Status Date / Time povidone-iodine Allergy Intermediate ITCHING Verified 07/05/21 18:43 [From BETADINE] soap [From BETADINE] Allergy Intermediate ITCHING Verified 07/05/21 18:43 Assessment & Plan Assessment & Plan (1) Hepatitis C: Status: Acute Code(s): B19.20 - Unspecified viral hepatitis C without hepatic coma Plan Pt is a 53 yo female with hx of PTSD, alcohol, cocaine abuse/dependence, currently in alcohol withdrawal who presents for depression, SI s/p overdose. -limited historian, likely due to discomfort from withdrawal symptoms -some beginning signs of alcohol delirum which resolved with ativan 2mg and gabapentin 300mg -will revisit HPI and hx as pt able to tolerate interview 06/29 Patient has improved some however remains in much discomfort due to withdrawal and still does not want to talk much.? Patient has scored mildly With some moderate CIWA scores. Will continue to treat for withdrawal symptoms 06/30 patient doing little better today and able to engage in interview.? Patient is depressed though no SI.? Continues to struggle through withdrawal.? Would like Seroquel restarted and Zoloft restarted and titrated to effective dose, never having been higher than 25 mg.? Patient is very sad about her children being in DCF custody. 3/16 mood improved, no SI; less tearful, more social in milue; c/o vaginal discharge so will do lab work 07/03 +hep C, carissa/chlamydia, strep A 07/07 mood has improved; no SI. Patient is social in the milieu, appropriate with peers and staff and optimistic. Content has nightmares and starting prazosin. Wants to try Suboxone since naltrexone increased LFTs. Prazosin for nightmares. Patient reports that throat is no longer sore, axilla induration completely resolved. She feels ready for discharge. While she remains vulnerab le to relapse, patient is not in imminent risk for harm to self or others plan: cv q15mn PTSD/Depression: Seroquel 100mg qhs for insomnia Seroquel 50mg Tid prn for anxiety Increased to Zolfot 100mg start prazosin 1mg for nightmares Polysubstance abuse cocaine/etoh subsequent exposure to opiates: Withdrawal: resolved dc CIWA? completing ativan/gabapentin taper pt says Gabapentin has helped curb cravings in past, but given abuse potential and her talk of dischage, will hold off for now Naltrexone caused increased LFTs Started Suboxone since she has tried before and said it was helpful for curbing cravings gonococcal and chlamydia cervicitis and throat Doxy 100mg BID for 7 days Ceftriaxone 500mg IM one time dose (consulted with both hospitalist and ID Dr. Aburto) Throat cultures carissa/chlamydia pending T pallidum EIA negative, HIV negative, HBsAg negative. trichomoniasis - will treat with 7 days of metronidazole 500 mg bid Strep A: covered by Ceftriaxone 500mg IM one time dose (per Dr. Aburto) +Hep C: hep C viral load and genotype consulted ID Dr. Aburto; appreciate tx will refer to ID for OUTPATIENT treatment with DAA regimen such as 8 wk of Mav yret of 12 wk of Epclusa. painful induration, right axilla: Resolved pt has hx of no cellulitis observed? pt already on Doxy which can cover skin infection not fluctuant will monitor warm compresses + mupirocin ointment tid. RLQ pain: resolved CT A/P with contrast shows: Normal appendix. Moderate volume stool throughout the colon suggest constipation. No other acute CT findings to explain right lower quadrant pain.? Will start stool softeners + add prn Miralax # GAS NAAT+ - likely represents chronic carriage rather than acute infection. hx of being on magnesium oxide History of being on iron supplement: currently H&H WNL [place] on left wrist placed on 06/16; area is well healed rajeev are able to be removed I spent minutes with the patient and/or on the patient floor today, greater than?50% of which was spent counseling/coordinating care. Patient educated on: diagnosis, medication risk/benefits and substance abuse Informed Consent: understands Reason for contiued inpatient stay Substantial Risk for: stable for discharge and med/psych decompensation
[2021-07-07] MEDS: Buprenorphine/Naloxone 4/1 mg FILM 1 FILM SUBLINGUAL (15:44)
[2021-07-07 18:00] VITALS: BP 135/76; PULSE 74; TEMP 36.8; O2SAT 97
[2021-07-07] MEDS: QUEtiapine Fumarate 100 MG TABLET PO (21:07)
[2021-07-07] MEDS: traZODone HCL 50 MG TABLET PO (21:07)
[2021-07-07] MEDS: Prazosin HCL 1 MG CAPSULE PO (21:07)
[2021-07-08 06:00] VITALS: BP 107/63; PULSE 80; RESP 16; TEMP 36.7; O2SAT 99
[2021-07-08] MEDS: metroNIDAZOLE 500 MG TABLET PO ×2 (06:17→17:17)
[2021-07-08] MEDS: cloNIDine HCL 0.1 MG TABLET PO ×3 (06:21→17:14)
[2021-07-08] MEDS: hydrOXYzine HCL 25 MG TABLET PO ×3 (06:22→23:16)
[2021-07-08] MEDS: Sennosides/Docusate Sodium TABLET 1 TAB PO ×2 (08:49→20:57)
[2021-07-08] MEDS: Sertraline HCL 100 MG TABLET PO (08:49)
[2021-07-08] MEDS: Famotidine 20 MG TABLET PO (08:49)
[2021-07-08] MEDS: Mupirocin 2 % Oint 22 GM TUBE 1 APPL TOPICAL ×3 (09:13→21:01)
--- NOTE | 2021-07-08 10:32 | P.PNPSI_ITS ---
Subjective Subjective Date of Service: 07/08/21 Reason For Visit: anxiety disorder, Cannabis use disorder Interim History: mood is good though disappointed missing her kids (had dcf appointment). No SI Still nightmare last night and agrees to increase prazosin suboxone calming, helped curb cravings. Patient agrees to increase Patient is optimistic about staying sober and is looking forward to getting a therapist. She feels ready to discharge tomorrow. Mental Status Exam Mental Status Exam Narrative: Patient Appearance:?Appropriate Patient Orientation:?Person, Place, Time and Situation Level of Consciousness:?Awake and Alert Patient Behavior:?Appropriate, Talkative, Cooperative and Good Eye Contact Mood Description:? good Affect Description:?calm, friendly Patient Cognition Impaired:?No Ability to Follow Directions:?Good Speech Pattern:?Spontaneous Speech Hallucinations:?None Delusions:?Not Present Perceptual Disturbances:?none Thought Process:?goal oriented, logical Thought Content:?WNL; denies SI/HI Judgment/insight:?Fair Diagnostics Vital Signs (24Hr): Vital Signs - 24 hr 07/07/21 18:00 07/08/21 06:00 Temperature 98.2 F 98.1 F Pulse Rate 74 80 Respiratory Rate 16 Blood Pressure 135/76 107/63 Pulse Oximetry 97 99 BMI result Body Mass Index 22.8 Labs Results: 06/30/21 23:59 06/30/21 23:59 Imaging Radiology Impressions: ITS Impressions Abdomen/Pelvis CT 07/04/21 20:20 IMPRESSION: Normal appendix. Moderate volume stool throughout the colon suggest constipation. No other acute CT findings to explain right lower quadrant pain. Fleischner guidelines were followed. Medications Medications Current Medications Acetaminophen (Acetaminophen 325 Mg Tablet) 650 mg PO Q6H PRN PRN Reason: Headache/Pain Mild Scale (1-3) Last Admin: 07/03/21 22:09 Dose: 650 mg Documented by: Al Hydroxide/Mg Hydroxide (Magnesium Hydrox/Alum Hydrox 30 Ml Oral.Susp) 30 ml PO Q6H PRN PRN Reason: Heartburn/Nausea Clonidine HCl (Clonidine Hcl 0.1 Mg Tablet) 0.1 mg PO Q4H PRN; Protocol PRN Reason: Anxiety Last Admin: 07/08/21 06:21 Dose: 0.1 mg Documented by: Cyclobenzaprine HCl (Cyclobenzaprine Hcl 10 Mg Tablet) 10 mg PO TID PRN PRN Reason: muscle aches Last Admin: 07/05/21 14:57 Dose: 10 mg Documented by: Doxycycline Hyclate (Doxycycline Hyclate 100 Mg Tablet) 100 mg PO BID [facility] Last Admin: 07/08/21 08:49 Dose: 100 mg Documented by: Famotidine (Famotidine 20 Mg Tablet) 20 mg PO DAILY [facility] Last Admin: 07/08/21 08:49 Dose: 20 mg Documented by: Hydroxyzine HCl (Hydroxyzine Hcl 25 Mg Tablet) 25 mg PO Q6H PRN PRN Reason: Anxiety Last Admin: 07/08/21 06:22 Dose: 25 mg Documented by: Loperamide HCl (Loperamide Hcl 2 Mg Capsule) 2 mg PO Q6H PRN PRN Reason: diarrhea Last Admin: 06/29/21 14:45 Dose: 2 mg Documented by: Magnesium Hydroxide (Milk Of Magnesia 30 Ml Oral.Susp) 30 ml PO DAILY PRN PRN Reason: Constipation Metronidazole (Metronidazole 500 Mg Tablet) 500 mg PO Q12H [facility] Stop: 07/11/21 06:01 Last Admin: 07/08/21 06:17 Dose: 500 mg Documented by: Mupirocin (Mupirocin 2 % Oint 22 Gm Tube) 1 appl TOPICAL TID [facility]; Protocol Last Admin: 07/08/21 09:13 Dose: 1 appl Documented by: Nicotine (Nicotine 21 Mg Patch.Td24) 21 mg TRANSDERMA DAILY PRN PRN Reason: smoking cessation Nicotine Polacrilex (Nicotine Polacrilex 2 Mg Gum) 4 mg BUCCAL Q2H PRN PRN Reason: Nicotine Cravings Last Admin: 07/05/21 18:39 Dose: 4 mg Documented by: Ondansetron HCl (Ondansetron Odt 8 Mg Tab.Rapdis) 8 mg TRANSLINGU Q8H PRN PRN Reason: nausea Polyethylene Glycol (Polyethylene Glycol 3350 17 Gm Powd.Pack) 17 gm PO DAILY PRN PRN Reason: constipation Prazosin HCl (Prazosin Hcl 1 Mg Capsule) 1 mg PO BEDTIME [facility]; Protocol Last Admin: 07/07/21 21:07 Dose: 1 mg Documented by: Quetiapine Fumarate (Quetiapine Fumarate 100 Mg Tablet) 100 mg PO BEDTIME [facility] Last Admin: 07/07/21 21:07 Dose: 100 mg Documented by: Quetiapine Fumarate (Quetiapine Fumarate 50 Mg Tablet) 50 mg PO TID PRN PRN Reason: anxiety Last Admin: 07/07/21 19:13 Dose: 50 mg Documented by: Senna/Docusate Sodium (Sennosides/Docusate Sodium Tablet) 1 tab PO BID [facility] Last Admin: 07/08/21 08:49 Dose: 1 tab Documented by: Sertraline HCl (Sertraline Hcl 100 Mg Tablet) 100 mg PO DAILY [facility] Last Admin: 07/08/21 08:49 Dose: 100 mg Documented by: Trazodone HCl (Trazodone Hcl 50 Mg Tablet) 50 mg PO BEDTIME PRN PRN Reason: Insomnia Last Admin: 07/07/21 21:07 Dose: 50 mg Documented by: Allergies Allergies Allergy/AdvReac Type Severity Reaction Status Date / Time povidone-iodine Allergy Intermediate ITCHING Verified 07/05/21 18:43 [From BETADINE] soap [From BETADINE] Allergy Intermediate ITCHING Verified 07/05/21 18:43 Assessment & Plan Assessment & Plan (1) Hepatitis C: Status: Acute Code(s): B19.20 - Unspecified viral hepatitis C without hepatic coma Plan Pt is a 53 yo female with hx of PTSD, alcohol, cocaine abuse/dependence, currently in alcohol withdrawal who presents for depression, SI s/p overdose. -limited historian, likely due to discomfort from withdrawal symptoms -some beginning signs of alcohol delirum which resolved with ativan 2mg and gabapentin 300mg -will revisit HPI and hx as pt able to tolerate interview 06/29 Patient has improved some however remains in much discomfort due to withdrawal and still does not want to talk much.? Patient has scored mildly With some moderate CIWA scores. Will continue to treat for withdrawal symptoms 06/30 patient doing little better today and able to engage in interview.? Patient is depressed though no SI.? Continues to struggle through withdrawal.? Would like Seroquel restarted and Zoloft restarted and titrated to effective dose, never having been higher than 25 mg.? Patient is very sad about her children being in DCF custody. 07/02 mood improved, no SI; less tearful, more social in milue; c/o vaginal discharge so will do lab work 07/03 +hep C, carissa/chlamydia, strep A 07/07 mood has improved; no SI. Patient is social in the milieu, appropriate with peers and staff and optimistic. Content has nightmares and starting prazosin. Wants to try Suboxone since naltrexone increased LFTs. Prazosin for nightmares. Patient reports that throat is no longer sore, axilla induration completely resolved. She feels ready for discharge. While she remains vulnerable to relapse, patient is not in imminent risk for harm to self or others 07/08 feels that Suboxone is helpful, calming and reduce his cravings and would like to be scheduled on a; agrees to a titration; good mood, no SI and optimistic about remaining stable and sober. Patient continues to feel good about discharging tomorrow. plan: cv q15mn PTSD/Depression: Seroquel 100mg qhs for insomnia Seroquel 50mg Tid prn for anxiety Zolfot 100mg Increased prazosin 2mg for nightmares Titrate Suboxone to 12/3 mg daily Polysubstance abuse cocaine/etoh subsequent exposure to opiates: Withdrawal: resolved dc CIWA? completing ativan/gabapentin taper pt says Gabapentin has helped curb cravings in past, but given abuse potential and her talk of dischage, will hold off for now Naltrexone caused increased LFTs Started Suboxone since she has tried before and said it was helpful for curbing cravings gonococcal and chlamydia cervicitis and throat Doxy 100mg BID for 7 days Ceftriaxone 500mg IM one time dose (consulted with both hospitalist and ID Dr. Aburto) Throat cultures carissa/chlamydia pending T pallidum EIA negative, HIV negative, HBsAg negative. trichomoniasis - will treat with 7 days of metronidazole 500 mg bid Strep A: covered by Ceftriaxone 500mg IM one time dose (per Dr. Aburto) +Hep C: hep C viral load and genotype consulted ID Dr. Aburto; appreciate tx will refer to ID for OUTPATIENT treatment with DAA regimen such as 8 wk of Mavyret of 12 wk of Epclusa. painful induration, right axilla: Resolved pt has hx of no cellulitis observed? pt already on Doxy which can cover skin infection not fluctuant will monitor warm compresses + mupirocin ointment tid. RLQ pain: resolved CT A/P with contrast shows: Normal appendix. Moderate volume stool throughout the colon suggest constipation. No other acute CT findings to explain right lower quadrant pain.? Will start stool softeners + add prn Miralax # GAS NAAT+ - likely represents chronic carriage rather than acute infection. hx of being on magnesium oxide History of being on iron supplement: currently H&H WNL [place] on left wrist placed on 06/16; area is well healed rajeev are able to be removed I spent minutes with the patient and/or on the patient floor today, greater than?50% of which was spent counseling/coordinating care. Patient educated on: diagnosis, medication risk/benefits and substance abuse Informed Consent: understands Reason for contiued inpatient stay Substantial Risk for: stable for discharge
[2021-07-08] MEDS: Buprenorphine/Naloxone 4/1 mg FILM 1 FILM SUBLINGUAL ×2 (14:57→21:06)
[2021-07-08 15:24] LABS: Alanine Aminotransferase 92 U/L (0-31); Albumin Level 4.1 g/dL (3.5-5.0); Alkaline Phosphatase 131 U/L (39-117); Aspartate Amino Transferase 86 U/L (5-31); Bilirubin Direct 0.2 mg/dL (0.0-0.5); Bilirubin Total 0.5 mg/dL (0.0-1.0); Total Protein 7.7 g/dL (6.5-8.0)
[2021-07-08] MEDS: Nicotine Polacrilex 2 MG GUM 4 MG BUCCAL (17:17)
[2021-07-08 18:00] VITALS: BP 119/68; PULSE 91; RESP 16; TEMP 36; O2SAT 98
[2021-07-08] MEDS: QUEtiapine Fumarate 100 MG TABLET PO (20:57)
[2021-07-08] MEDS: Prazosin HCL 1 MG CAPSULE 2 MG PO (20:57)
[2021-07-08] MEDS: traZODone HCL 50 MG TABLET PO (21:06)
[2021-07-09 06:00] VITALS: BP 113/72; PULSE 72; TEMP 36.8; O2SAT 95
[2021-07-09] MEDS: metroNIDAZOLE 500 MG TABLET PO (06:12)
--- NOTE | 2021-07-09 09:33 | PM.PSYDC ---
DS: Providers Provider Date of Service: 07/09/21 Date of admission: 06/27/21 22:26 Date of discharge: 07/09/21 Primary care physician: Unknown Physician Attending physician on admission: Zia Walker Consults: 06/27/21 22:38 Consult to Hospitalist Routine Consulting Provider: Hospitalist Reason For Exam: New admit from [facility] 07/03/21 10:45 Consult to Hospitalist Routine Consulting Provider: Hospitalist Reason For Exam: chlamydia/dylon vag infx; painful rt axilla node 07/03/21 11:50 Consult to Infectious Diseases Routine Consulting Provider: Najma Aburto Reason for consultation: hep C; (also being tx for chlam/Dylon genital infection;throat culture pend) Has provider been notified: Yes 07/04/21 14:57 Consult to Hospitalist Routine Consulting Provider: Hospitalist Reason For Exam: RLQ pain, ?Cyst R. Axilla-pain Attending physician on discharge: Zia Walker DS: Diagnosis Discharge Diagnosis (1) Hepatitis C: Status: Acute DS: Medications Discharge Medications Home Medications: Previous Rx's Medication Instructions Recorded phenazopyridine 100 mg tablet 100 mg PO TID PRN #6 tab 11/02/20 (Pyridium) sulfamethoxazole 800 1 tab PO Q12H 3 Days #6 tab 11/02/20 mg-trimethoprim 160 mg tablet (Bactrim DS) clonidine HCl 0.1 mg tablet 0.1 mg PO BID PRN 30 Days #60 tab 07/09/21 doxycycline hyclate 100 mg tablet 100 mg PO BID 2 Days #3 tab 07/09/21 famotidine 20 mg tablet 20 mg PO DAILY 30 Days #30 tab 07/09/21 hydroxyzine HCl 25 mg tablet 25 mg PO BID PRN 30 Days #60 tab 07/09/21 metronidazole 500 mg tablet 500 mg PO BID 3 Days #6 tab 07/09/21 nicotine (polacrilex) 2 mg gum 4 mg BUCCAL Q2H PRN 30 Days #50 ea 07/09/21 prazosin 2 mg capsule 2 mg PO BEDTIME 30 Days #30 cap 07/09/21 quetiapine 100 mg tablet 100 mg PO BEDTIME 30 Days #30 tab 07/09/21 quetiapine 50 mg tablet 50 mg PO TID PRN 30 Days #90 tab 07/09/21 sennosides 8.6 mg-docusate sodium 1 tab PO BID 30 Days #60 tab 07/09/21 50 mg tablet (Senna Plus) sertraline 100 mg tablet 100 mg PO DAILY 30 Days #30 tab 07/09/21 trazodone 50 mg tablet 50 mg PO BEDTIME PRN 30 Days #30 07/09/21 tab Mental Status Exam Mental Status Exam Narrative: Patient Appearance:?Appropriate Patient Orientation:?Person, Place, Time and Situation Level of Consciousness:?Awake and Alert Patient Behavior:?Appropriate, Talkative, Cooperative and Good Eye Contact Mood Description:? good Affect Description:?calm, friendly Patient Cognition Impaired:?No Ability to Follow Directions:?Good Speech Pattern:?Spontaneous Speech Hallucinations:?None Delusions:?Not Present Perceptual Disturbances:?none Thought Process:?goal oriented, logical Thought Content:?WNL; denies SI/HI Judgment/insight:?Fair Data Data Completed and Pending Completed studies during hospitalization [Text1]: 07/02/21 07/02/21 07/02/21 13:30 13:30 17:30 Total Bilirubin Direct Bilirubin AST ALT Alkaline Phosphatase Liver GGT Liver Total Bilirubin Liver Apolipoprotein A1 Liver Fibrosis ALT Liver x-4-[id number] Liver Haptoglobin Liver Fibrosis Score Liver Fibrosis Interp Liver Fibrosis Comment Liver Fibrosis Stage Necroinflammator Score Necroinflam Score Cmmt Necroinflammator Grade Total Protein Albumin Urine Color YELLOW Urine Appearance HAZY Urine pH 5.5 Ur Specific [place] 1.020 Urine Protein NEG Urine Glucose (UA) NEG Urine Ketones NEG Urine Blood NEG Urine Nitrite NEG Ur Leukocyte Esterase 2+ H Urine RBC 0-2 Urine WBC 10-14 H Urine WBC Clumps NOTED Ur Squamous Epith Cells 2+ Urine Bacteria NONE Urine Mucus TRACE Urine Trichomonas NOTED Urine Test NEGATIVE Throat C trach RNA TMA Throat N gonorr RNA TMA T.pallidum Ab (EIA) Chlam trachomat DNA PCR DETECTED A Hep Bs Antigen Hep Bs Antibody Hep B Core Total Ab Hepatitis C Ab (EIA) HCV RNA Genotype LiPA HCV RNA (PCR) IUs/ml HCV RNA PCR log IUs/ml Hepatitis C RNA Comment Hep C Viral Load Hep C Viral Load Log Hepatitis C Genotype HIV 1&2 Ab/P24 Ag 4thGn Influenza Type A (PCR) Influenza Type B (PCR) N.gonorrhoeae DNA (PCR) DETECTED A RSV RNA Qual (PCR) SARS-CoV-2 RNA (RT-PCR) S. pyogenes GrpA SHIREEN Ref Lab Specimen ID 07/02/21 07/03/21 07/03/21 17:48 12:38 12:39 Total Bilirubin Direct Bilirubin AST ALT Alkaline Phosphatase Liver GGT Liver Total Bilirubin Liver Apolipoprotein A1 Liver Fibrosis ALT Liver [id number] Liver Haptoglobin Liver Fibrosis Score Liver Fibrosis Interp Liver Fibrosis Comment Liver Fibrosis Stage Necroinflammator Score Necroinflam Score Cmmt Necroinflammator Grade Total Protein Albumin Urine Color Urine Appearance Urine pH Ur Specific [place] Urine Protein Urine Glucose (UA) Urine Ketones Urine Blood Urine Nitrite Ur Leukocyte Esterase Urine RBC Urine WBC Urine WBC Clumps Ur Squamous Epith Cells Urine Bacteria Urine Mucus Urine Trichomonas Urine Test Throat C trach RNA TMA Throat N gonorr RNA TMA T.pallidum Ab (EIA) Nonreactive Chlam trachomat DNA PCR Hep Bs Antigen Negative Hep Bs Antibody NONREACTIVE Hep B Core Total Ab Nonreactive Hepatitis C Ab (EIA) Reactive H HCV RNA Genotype LiPA Pending HCV RNA (PCR) IUs/ml [id number] H HCV RNA PCR log IUs/ml 6.60 H Hepatitis C RNA Comment SEE NOTE Hep C Viral Load Cancelled Hep C Viral Load Log Cancelled Hepatitis C Genotype Cancelled HIV 1&2 Ab/P24 Ag 4thGn Nonreactive Influenza Type A (PCR) Influenza Type B (PCR) N.gonorrhoeae DNA (PCR) RSV RNA Qual (PCR) SARS-CoV-2 RNA (RT-PCR) S. pyogenes GrpA SHIREEN Ref Lab Specimen ID 07/03/21 07/03/21 07/03/21 13:26 13:26 13:26 Total Bilirubin Direct Bilirubin AST ALT Alkaline Phosphatase Liver GGT Liver Total Bilirubin Liver Apolipoprotein A1 Liver Fibrosis ALT Liver [id number] Liver Haptoglobin Liver Fibrosis Score Liver Fibrosis Interp Liver Fibrosis Comment Liver Fibrosis Stage Necroinflammator Score Necroinflam Score Cmmt Necroinflammator Grade Total Protein Albumin Urine Color Urine Appearance Urine pH Ur Specific [place] Urine Protein Urine Glucose (UA) Urine Ketones Urine Blood Urine Nitrite Ur Leukocyte Esterase Urine RBC Urine WBC Urine WBC Clumps Ur Squamous Epith Cells Urine Bacteria Urine Mucus Urine Trichomonas Urine Test Throat C trach RNA TMA DETECTED A Throat N gonorr RNA TMA DETECTED A T.pallidum Ab (EIA) Chlam trachomat DNA PCR Hep Bs Antigen Hep Bs Antibody Hep B Core Total Ab Hepatitis C Ab (EIA) HCV RNA Genotype LiPA HCV RNA (PCR) IUs/ml HCV RNA PCR log IUs/ml Hepatitis C RNA Comment Hep C Viral Load Hep C Viral Load Log Hepatitis C Genotype HIV 1&2 Ab/P24 Ag 4thGn Influenza Type A (PCR) NEGATIVE Influenza Type B (PCR) NEGATIVE N.gonorrhoeae DNA (PCR) RSV RNA Qual (PCR) NEGATIVE SARS-CoV-2 RNA (RT-PCR) NEGATIVE S. pyogenes GrpA SHIREEN Positive A Ref Lab Specimen ID 07/03/21 07/06/21 07/06/21 14:35 07:25 07:25 Total Bilirubin 0.5 Direct Bilirubin 0.2 AST 90 H ALT 101 H Alkaline Phosphatase 124 H D Liver GGT Pending Liver Total Bilirubin Pending Liver Apolipoprotein A1 Pending Liver Fibrosis ALT Pending Liver [id number] Pending Liver Haptoglobin Pending Liver Fibrosis Score Pending Liver Fibrosis Interp Pending Liver Fibrosis Comment Pending Liver Fibrosis Stage Pending Necroinflammator Score Pending Necroinflam Score Cmmt Pending Necroinflammator Grade Pending Total Protein 7.0 Albumin 3.8 Urine Color Urine Appearance Urine pH Ur Specific [place] Urine Protein Urine Glucose (UA) Urine Ketones Urine Blood Urine Nitrite Ur Leukocyte Esterase Urine RBC Urine WBC Urine WBC Clumps Ur Squamous Epith Cells Urine Bacteria Urine Mucus Urine Trichomonas Urine Test Throat C trach RNA TMA Throat N gonorr RNA TMA T.pallidum Ab (EIA) Chlam trachomat DNA PCR Cancelled Hep Bs Antigen Hep Bs Antibody Hep B Core Total Ab Hepatitis C Ab (EIA) HCV RNA Genotype LiPA HCV RNA (PCR) IUs/ml HCV RNA PCR log IUs/ml Hepatitis C RNA Comment Hep C Viral Load Hep C Viral Load Log Hepatitis C Genotype HIV 1&2 Ab/P24 Ag 4thGn Influenza Type A (PCR) Influenza Type B (PCR) N.gonorrhoeae DNA (PCR) Cancelled RSV RNA Qual (PCR) SARS-CoV-2 RNA (RT-PCR) S. pyogenes GrpA SHIREEN Ref Lab Specimen ID Pending 07/08/21 15:03 Total Bilirubin 0.5 Direct Bilirubin 0.2 AST 86 H ALT 92 H Alkaline Phosphatase 131 H Liver GGT Liver Total Bilirubin Liver Apolipoprotein A1 Liver Fibrosis ALT Liver [id number] Liver Haptoglobin Liver Fibrosis Score Liver Fibrosis Interp Liver Fibrosis Comment Liver Fibrosis Stage Necroinflammator Score Necroinflam Score Cmmt Necroinflammator Grade Total Protein 7.7 Albumin 4.1 Urine Color Urine Appearance Urine pH Ur Specific [place] Urine Protein Urine Glucose (UA) Urine Ketones Urine Blood Urine Nitrite Ur Leukocyte Esterase Urine RBC Urine WBC Urine WBC Clumps Ur Squamous Epith Cells Urine Bacteria Urine Mucus Urine Trichomonas Urine Test Throat C trach RNA TMA Throat N gonorr RNA TMA T.pallidum Ab (EIA) Chlam trachomat DNA PCR Hep Bs Antigen Hep Bs Antibody Hep B Core Total Ab Hepatitis C Ab (EIA) HCV RNA Genotype LiPA HCV RNA (PCR) IUs/ml HCV RNA PCR log IUs/ml Hepatitis C RNA Comment Hep C Viral Load Hep C Viral Load Log Hepatitis C Genotype HIV 1&2 Ab/P24 Ag 4thGn Influenza Type A (PCR) Influenza Type B (PCR) N.gonorrhoeae DNA (PCR) RSV RNA Qual (PCR) SARS-CoV-2 RNA (RT-PCR) S. pyogenes GrpA SHIREEN Ref Lab Specimen ID 07/02/21 Unknown Urine clean catch - Urine castro top Urine Culture - Final No growth. Imaging Diagnostic Imaging Impressions Abdomen/Pelvis CT 07/04/21 20:20 IMPRESSION: Normal appendix. Moderate volume stool throughout the colon suggest constipation. No other acute CT findings to explain right lower quadrant pain. Fleischner guidelines were followed. DS: Summary Hospital Course Hospital Course: Pt is a 53 yo female with hx of PTSD, alcohol, cocaine abuse/dependence, currently in alcohol withdrawal who presents for depression, SI s/p overdose. -On admission, pt was a limited historian, due to discomfort from withdrawal symptoms and some beginning signs of alcohol delirum which resolved with ativan 2mg and gabapentin 300mg Over the next few days patient continued to have withdrawal symptoms which eventually resolved without further incident. Patient reports depression and feeling sad that children are in DCF custody but denied any SI.? She asked for Seroquel and Zoloft to be restarted which were titrated to effective doses? and her mood significantly improved. She complained of nightmares and benefited from prazosin. All on the unit, patient was treated for STIs and strep A (see below) and was diagnosed with hepatitis C and outpatient appointment made. Patient wanted help with substance abuse and asked to be on naltrexone however this increased her LFTs. She decided instead to start Suboxone which she found helpful, was well tolerated and reduced cravings. Patient remained in good mood, was social in the milieu and engaged in treatment. She had good impulse and behavioral control and was appropriate with peers and staff. She remained without any SI, had a bright affect and asked for discharge. While patient remains at risk for both relapse in future decompensation, she was currently stable, future oriented and appropriate to continue treatment in the outpatient setting. Patient was not in imminent risk for harm to self or others and her request for discharge honored. While on the unit, pt was treated for the following: -gonococcal and chlamydia cervicitis and throat tx with Doxy 100mg BID for 7 days and Ceftriaxone 500mg IM one time dose -trichomoniasis treated with 7 days of metronidazole 500 mg bid -Strep A (covered by Ceftriaxone 500mg IM one time dose (per Dr. Aburto)) -Positive for Hep C consulted ID Dr. Aburto and refered to ID for outpt treatment -painful induration, right axilla: Resolved with warm compresses + mupirocin ointment tid -RLQ pain:?resolved w/ stool softener CT A/P with contrast shows: Normal appendix. Moderate volume stool throughout the colon suggest constipation. No other acute CT findings to explain right lower quadrant pain.? Time spent discussing smoking cessation with patient: 3 to 10 minutes Status at Discharge Functional status at discharge: independent ambulation Overall status at discharge: patient is back to baseline Time Spent with Patient Time attestation: Total time spent providing and/or coordinating discharge services: Time spent: Less than 30 minutes Discharge Plan Discharge Patient Disposition: Home, Self-Care Discharge Diagnosis: PTSD, chronic with acute exacerbation Referrals: Therapy: Savannah Mckeon [Other] - 07/10/21 1:00 pm (The intake therapy appointment is in-office) Psychiatric Med Management: Adam Shabazz [Other] - 07/14/21 11:00 am (This is a virtual Telehealth appointment) Psychiatric Med Management: Adam Shabazz [Other] - 08/14/21 3:20 pm (This is a virtual Telehealth appointment) Suboxone: Jazmine Aburto [Other] - 07/09/21 2:30 pm (This appointment is in-office) Po,Tejal Arellano MD [Physician] - 07/24/21 9:00 am (in office) Discharge Medications: New doxycycline hyclate 100 mg Tablet 100 mg PO BID 2 Days Qty: 3 0RF metronidazole 500 mg Tablet 500 mg PO BID 3 Days Qty: 6 0RF nicotine (polacrilex) 2 mg Gum 4 mg buccal Q2H PRN (Reason: Nicotine Cravings) 30 Days Qty: 50 0RF clonidine HCl 0.1 mg Tablet 0.1 mg PO BID PRN (Reason: Anxiety) 30 Days Qty: 60 0RF Protocol: Hold for SBP< HOLD for SBP < : 90 prazosin 2 mg capsule 2 mg PO BEDTIME 30 Days Qty: 30 0RF hydroxyzine HCl 25 mg Tablet 25 mg PO BID PRN (Reason: Anxiety) 30 Days Qty: 60 0RF quetiapine 100 mg Tablet 100 mg PO BEDTIME 30 Days Qty: 30 0RF quetiapine 50 mg Tablet 50 mg PO TID PRN (Reason: anxiety/agitation) 30 Days Qty: 90 0RF sertraline 100 mg Tablet 100 mg PO DAILY 30 Days Qty: 30 0RF trazodone 50 mg Tablet 50 mg PO BEDTIME PRN (Reason: Insomnia) 30 Days Qty: 30 0RF famotidine 20 mg Tablet 20 mg PO DAILY 30 Days Qty: 30 0RF sennosides-docusate sodium [Senna Plus] 8.6-50 mg Tablet 1 tab PO BID 30 Days Qty: 60 0RF Rx Instructions: hold for loose stool Discontinued sulfamethoxazole-trimethoprim [Bactrim DS] 800-160 mg tablet 1 tab PO Q12H 3 Days Qty: 6 0RF phenazopyridine [Pyridium] 100 mg tablet 100 mg PO TID PRN (Reason: pain) Qty: 6 0RF No Action buprenorphine-naloxone [Suboxone] 8-2 mg film 2 film sublingual DAILY 7 Days Qty: 14 0RF Rx Instructions: place 1 strip/tab under (each) side of tongue Discharge Orders: Discharge Order (Routine); Ordered 07/09/21 Ordered By: Zia Walker Diet: regular diet Activity on Discharge: As tolerated Stand Alone Forms: Patient Portal Discharge page, Community Support Care Plan Goals: Maintain mood and safe behaviors Take medications as prescribed Continue to pursue sobriety Practice coping skills Continue with outpatient providers and reach out to them as needed Health Concerns: Mood stability and behaviors Sobriety Hepatitis C (see Dr. Aburto in outpt clinic) Infection (complete antibiotics) Plan of Treatment: Follow up with your PCP, Infectious Disease doctor, psychiatric provider and other outpatient providers regarding above concerns Take medications as prescribed Avoid Sunlight for 2 days (while on Doxycycline) Assessment: Risk assessment at time of discharge:? Patient was interviewed prior to discharge and found to be fully oriented and without any SI or HI. Patient has insight and demonstrates good judgment in terms of wanting to pursue treatment. Patient is not in imminent risk of harm to self or others and has a safety plan that includes presenting to the closest ER or calling 911 if feeling unsafe.? Patient has been observed closely by nursing and unit staff throughout admission; patient has not engaged in any behaviors that suggest dangerousness to self or others and has demonstrated appropriate behaviors and impulse control Discharge Date/Time: 07/09/21 14:15
[2021-07-09] MEDS: Sennosides/Docusate Sodium TABLET 1 TAB PO (09:42)
[2021-07-09] MEDS: Sertraline HCL 100 MG TABLET PO (09:43)
[2021-07-09] MEDS: Famotidine 20 MG TABLET PO (09:43)
[2021-07-09] MEDS: Buprenorphine/Naloxone 12/3 mg FILM 1 FILM SUBLINGUAL (09:43)
[2021-07-09] MEDS: Naloxone HCl Nasal TAKE HOME 4 MG SPRAY NOSTRILALT (09:57)
[2021-07-09] MEDS: Mupirocin 2 % Oint 22 GM TUBE 1 APPL TOPICAL (10:18)
[2021-07-09] MEDS: hydrOXYzine HCL 25 MG TABLET PO (13:38)
[2021-07-11 09:05] LABS: HCV Genotype LiPA 1a
[2021-07-12 18:02] LABS: FIB-ALT 86 U/L (6-29); FIB-Alpha-2-Macroglobulin 198 mg/dL (106-279); FIB-Apolipoprotein A1 211 mg/dL (101-198); FIB-GGT 118 U/L (3-50); FIB-Haptoglobin 62 mg/dL (43-212); FIB-Total Bilirubin 0.5 mg/dL (0.2-1.2); Liver Fibrosis Score 0.14; Liver Fibrosis Stage F0; Nec Inflam Act Grade A1-A2; Nec Inflam Act Score 0.44
== END 2021-07-09 14:15 | disposition home or self-care (01) | DRG 754 ==
PROVIDERS: Hospitalist; Registered Nurse; Admitting Provider Psychiatry & Neurology Psychiatry; Visit Provider Psychiatry & Neurology Psychiatry
DX: F32.A Depression, unspecified (principal); F10.231 Alcohol dependence with withdrawal delirium; R45.851 Suicidal ideations; A54.9 Gonococcal infection, unspecified; A56.8 Sexually transmitted chlamydial infection of other sites; F11.20 Opioid dependence, uncomplicated; A59.9 Trichomoniasis, unspecified; F43.12 Post-traumatic stress disorder, chronic; F41.9 Anxiety disorder, unspecified; B19.20 Unspecified viral hepatitis C without hepatic coma; K75.9 Inflammatory liver disease, unspecified; L73.2 Hidradenitis suppurativa; Z20.822 Contact with and (suspected) exposure to COVID-19; F14.10 Cocaine abuse, uncomplicated; F17.210 Nicotine dependence, cigarettes, uncomplicated; Z71.6 Tobacco abuse counseling; Z79.899 Other long term (current) drug therapy
CPT/HCPCS: 0241U; 36415; 74177; 80048; 80053; 80076; 81001; 81025; 81596; 82607; 82746; 82947; 83735; 84439; 84443; 84484; 85025; 86704; 86706; 86780; 86803; 87086; 87340; 87389; 87491; 87522; 87591; 87651; 87902; 93005; J0696; Q9967

== ENCOUNTER → 2021-07-09 14:21 | Outpatient (BNVA) | payer OTHER, SELFPAY | PROVIDERS: Visit Provider Internal Medicine | DX: Z51.81 Encounter for therapeutic drug level monitoring (principal); F11.20 Opioid dependence, uncomplicated; F10.20 Alcohol dependence, uncomplicated; L02.92 Furuncle, unspecified; B19.20 Unspecified viral hepatitis C without hepatic coma; Z72.0 Tobacco use | CPT/HCPCS: 80305; 99202; 99212 ==